=== PATIENT | male | born 1985 | race Caucasian/White ===

== ENCOUNTER 2019-04-29 14:04 | Emergency (ER) | payer SELFPAY ==
[2019-04-29 14:05] VITALS: BP 149/97; PULSE 92; RESP 16; TEMP 36.9; O2SAT 100; BMI 25.7
--- NOTE | 2019-04-29 14:21 | RAD_ITS ---
STUDY: X-RAY - RIGHT FOOT CLINICAL: Male, 33 years old. Pain along the fifth metatarsal following injury. TECHNIQUE: 3 view(s) of the foot. COMPARISON: None. FINDINGS: Normal talus, calcaneus, and tarsal bones. Normal visualized subtalar, talonavicular, calcaneocuboid, tarsal and tarsometatarsal articulations. Nondisplaced transverse fracture of the distal aspect of the fifth metatarsal. Normal metatarsophalangeal joint of the great toe. Normal tibial and fibular sesamoid bones. Normal interphalangeal joint of the great toe. Normal phalanges of the great toe. Normal second through fifth metatarsophalangeal joints. Normal interphalangeal joints and phalanges of the lesser toes. Soft tissue swelling. RAD/Foot min 3 Views IMPRESSION: Nondisplaced transverse fracture along the distal aspect of the fifth metatarsal with overlying soft tissue swelling. Electronically Signed: Jonathan Alaniz, at 14:49 EDT , Service support ,
--- NOTE | 2019-04-29 15:17 | ED.DCSUM_ITS ---
- ER Visit Summary Date of Service: 04/29/19 Chief Complaint: Foot injury History of Present Illness: The patient is a 33 M who states that approximate 7 days ago while in [place] playing basketball he did a jump shot when he came down his foot landed on uneven surface between the concrete on the grass and he sustained an inversion injury. Since that time he said swelling and ecchymosis. He notes painful walking and has been using a cane. Physical Examination: Afebrile vital signs are stable Gen: Well-nourished well-developed Head: Normocephalic atraumatic Eyes: Perrl EOMI ENT: TMs clear no rhinorrhea moist mucous membranes Neck: Supple no lymphadenopathy no JVD nontender CVS: Regular rate rhythm no murmurs normal S1-S2 Respiratory: No distress clear to auscultation bilaterally chest nontender Abdomen: Soft nontender nondistended normal bowel sounds no masses Back: Nontender Extremity: Tender to palpation along the distal fifth metatarsal. Diffuse swelling of the foot and ankle. Ankle appears stable. Skin: Normal color ecchymosis along the dorsal surface of the right foot Neuro: alert orientated ?3 CN II-XII intact normal strength sensation Psych: Normal affect normal mood Test Results: X-rays reveal a nondisplaced transverse fracture at the distal aspect of the fifth metatarsal. Emergency Department Course and Treatment: Case was discussed with podiatry to help ensure follow-up. Patient will be placed in a walking boot. Patient declines crutches. Impression: 1. Right fifth metatarsal fracture This note was generated with [employer] dictation software. It may contain incorrect words, spelling, and punctuation that were not noted in review of the chart prior to signing ED Disposition - Plan for ED Patient: Disposition: Home or Assisted Living Instructions: ED Fx Foot Referrals: Juan Diego Beavers DPM [STAFF PHYSICIAN] - (call to arrange follow up)
--- NOTE | 2019-04-29 15:21 | NURSING ---
PAGED DR MAYER
== END 2019-04-29 15:48 | disposition home or self-care (01) ==
PROVIDERS: Emergency Provider Emergency Medicine
DX: S92.354A Nondisplaced fracture of fifth metatarsal bone, right foot, initial encounter for closed fracture (principal); X50.1XXA Overexertion from prolonged static or awkward postures, initial encounter; Y93.67 Activity, basketball; Y92.9 Unspecified place or not applicable; Y99.9 Unspecified external cause status; Z72.0 Tobacco use
CPT/HCPCS: 73630; 99283

== ENCOUNTER 2021-01-19 19:59 | Emergency (ER) | payer MEDICAID, SELFPAY ==
[2021-01-19 19:59] VITALS: BP 156/105; PULSE 110; RESP 16; TEMP 36.6; O2SAT 96; BMI 25.0
[2021-01-19 20:13] VITALS: BP 156/105; PULSE 110; RESP 16; TEMP 36.6; O2SAT 96
--- NOTE | 2021-01-19 21:25 | ED.DCSUM_ITS ---
History of Present Illness Chief Complaint: Laceration Narrative: Patient is a 35-year-old male who presents with a left foot laceration wound check. He was in [place]. He cut his foot on coral 2 days ago. He was seen at an urgent care in [place] and had his wound cleansed and sutured. He flew back today. Due to swelling he noticed that his wound was beginning to pull apart. He does complain of pain and redness. Past Medical History - Allergies and Home Meds Allergies/Adverse Reactions: Allergies No Known Allergies Allergy (Verified 01/19/21 20:05) Primary Care Physician: Care Physician,No Primary [Primary Care Provider] - Past Medical History: None Smoking Status: Current every day smoker Review of Systems All systems negative except as indicated General: Denies: Fever Eyes: Denies: Visual changes - bilaterally Cardiovascular: Denies: Chest pain Respiratory: Denies: Dyspnea Gastrointestinal: Denies: Abdominal pain, Vomiting, Diarrhea Musculoskeletal: Denies: Myalgias, Arthralgias Skin: Reports: Wounds. Denies: Rash Neurological: Denies: Headache Hematologic: Denies: Easy bruising Allergy: Denies: Uticaria Physical Exam Vital Signs/Narrative: Vital Signs Temp Pulse Resp BP Pulse Ox 01/19/21 20:13 97.8 F 110 H 16 156/105 H 96 01/19/21 19:59 97.8 F 110 H 16 156/105 H 96 Inital Vital Signs reviewed: Yes General: Well nourished Head: Normocephalic Eyes: EOMI ENT: Moist mucous membranes Neck: Supple Cardiovascular: Regular rhythm, Tachycardia Respiratory: No distress Abdomen: Soft Extremities: - - Patient does have a laceration on the bottom of the left foot. There is surrounding erythema. He is very tender. No drainage. There is some superficial dehiscence although the wound is still well approximated Skin: No rash Neurological: Alert Psychological: Normal affect Diagnostic/Tx/Re-eval Laboratory Results 01/19/21 01/19/21 01/19/21 21:40 21:40 21:40 WBC 10.7 RBC 4.81 Hgb 14.7 Hct 43.7 MCV 90.9 MCH 30.6 MCHC 33.6 RDW Std Deviation 42.5 RDW Coeff of Marquez 12.8 Plt Count 291 MPV 8.6 Immature Gran % (Auto) 0.400 Neut % (Auto) 77.6 H Lymph % (Auto) 12.9 L [place] % (Auto) 7.4 Eos % (Auto) 1.2 Baso % (Auto) 0.5 Absolute Neuts (auto) 8.3 H Absolute Lymphs (auto) 1.38 Nucleated RBC % 0 Sodium 138 Potassium 4.0 Chloride 103 Carbon Dioxide 30.0 Anion Gap 5 BUN 11 Creatinine 1.09 Estim Creat Clear Calc 83.85 Est GFR (MDRD) Af Amer 100 Est GFR (MDRD) Non-Af 82 BUN/Creatinine Ratio 10.1 Glucose 88 Lactic Acid 1.0 Calcium 9.5 - Medical Decision Making CBC BMP unremarkable patient patient was given IV Unasyn. I discussed hospital observation. The patient refuses. Patient is on Bactrim only which while this would be a good antibiotic for vibrio may not cover common pathogens as well. I discussed adding on additional antibiotics such as oral doxycycline as this would be my recommendation at this point. Patient states I am going to be honest with you I am not going to fill it. He does not believe that there is an infection he believes the erythema pain and swelling are just related to his feet being down during the flight. I very clearly expressed my concern that he has an infection not adequately being controlled with Bactrim alone. I discussed the risks of worsening of condition which could result in the need for surgical intervention disability sepsis or . He vocalized understanding and signed out AGAINST MEDICAL ADVICE. ED Disposition - Plan for ED Patient: Disposition: Against Medical Advice Diagnosis: Wound infection Instructions: ED Wound Check (Infection) Referrals: Care Physician,No Primary [Primary Care Provider] -
[2021-01-19 21:51] LABS: Absolute Lymphocyte Count 1.38 X10^3/uL (0.83-4.51); Absolute Neutrophil Count 8.3 X10^3/uL (2.0-7.7); Basophil# 0.05 X10^3/uL; Basophil% 0.5 % (0-1); Eosinophil# 0.13 X10^3/uL; Eosinophils% 1.2 % (0-5); Hematocrit 43.7 % (40-54); Hemoglobin 14.7 g/dL (13.0-16.5); Lymphocyte # 1.38 X10^3/ul (4.0); Lymphocyte % 12.9 % (19-41); Mean Corp Hgb Conc 33.6 g/dL (32-36); Mean Corpuscular Hgb 30.6 pg (27.0-32.0); Mean Corpuscular Volume 90.9 fL (80-94); Mean Platelet Vol. 8.6 fl (6.2-12.0); Monocyte# 0.79 X10^3/uL; Monocyte% 7.4 % (0-10); NRBC Flagged by Analyzer 0 % (0-5); Neutrophil # 8.27 X10^3/uL (2.7-7.7); Neutrophil % 77.6 % (47-70); Platelet Count 291 K/mm3 (150-450); RBC Distribution Width CV 12.8 % (11.6-14.6); RBC Distribution Width SD 42.5 fl (35.1-43.9); Red Blood Count 4.81 M/mm3 (4.6-6.2); White Blood Count 10.7 K/mm3 (4.4-11.0)
[2021-01-19 22:12] LABS: Anion Gap 5 (5-15); BUN 11 mg/dL (7-18); BUN/Creat Ratio 10.1 RATIO (10-20); Calcium,Total 9.5 mg/dL (8.5-10.1); Chloride 103 mmol/L (98-107); Creatinine, Serum 1.09 mg/dL (0.70-1.30); EST Glomerular Filtration Rate 82 mL/min (>60); Est Glom Filt Rate - Afr Amer 100 mL/min (>60); Estimated Creatinine Clearance 83.85 ml/min; Glucose 88 mg/dL (74-106); Sodium Level 138 mmol/L (136-145)
== END 2021-01-20 00:06 | disposition home or self-care (01) ==
PROVIDERS: Emergency Provider Emergency Medicine
DX: T81.33XA Disruption of traumatic injury wound repair, initial encounter (principal); L08.9 Local infection of the skin and subcutaneous tissue, unspecified; Z53.29 Procedure and treatment not carried out because of patient's decision for other reasons; F17.200 Nicotine dependence, unspecified, uncomplicated
CPT/HCPCS: 80048; 83605; 85025; 96365; 99282; J7050; A4216; J0295

== ENCOUNTER → 2021-08-09 11:58 | Outpatient (CLI) | payer MEDICAID, SELFPAY ==
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
== END ==
PROVIDERS: PCP Nurse Practitioner Family; Referring Provider Nurse Practitioner Family; Visit Provider Nurse Practitioner Family
DX: R10.31 Right lower quadrant pain (principal); S39.91XA Unspecified injury of abdomen, initial encounter; X58.XXXA Exposure to other specified factors, initial encounter; Y93.9 Activity, unspecified; Y92.9 Unspecified place or not applicable; Y99.9 Unspecified external cause status; Z87.442 Personal history of urinary calculi
CPT/HCPCS: 74177; Q9967

== ENCOUNTER → 2021-09-07 11:14 | Outpatient (CLI) | payer MEDICAID, SELFPAY ==
[2021-09-07 12:13] LABS: Hematocrit 50.1 % (40-54); Hemoglobin 16.2 g/dL (13.0-16.5); Mean Corp Hgb Conc 32.3 g/dL (32-36); Mean Corpuscular Hgb 30.5 pg (27.0-32.0); Mean Corpuscular Volume 94.4 fL (80-94); Mean Platelet Vol. 9.3 fl (6.2-12.0); Platelet Count 349 K/mm3 (150-450); RBC Distribution Width CV 12.5 % (11.6-14.6); RBC Distribution Width SD 43.8 fl (35.1-43.9); Red Blood Count 5.31 M/mm3 (4.6-6.2); White Blood Count 5.5 K/mm3 (4.4-11.0)
[2021-09-07 12:51] LABS: ALB/GLOB Ratio 1.1 RATIO (0.9-2.4); AST(SGOT) 19 U/L (15-37); Alanine Aminotransfer ALT/SGPT 25 U/L (16-61); Alkaline Phosphatase 81 U/L (45-117); Anion Gap 5 (5-15); BUN 14 mg/dL (7-18); BUN/Creat Ratio 14.5 RATIO (10-20); Calcium,Total 9.3 mg/dL (8.5-10.1); Chloride 106 mmol/L (98-107); Cholesterol 165 mg/dL (200); Creatinine, Serum 0.97 mg/dL (0.70-1.30); EST Glomerular Filtration Rate 94 mL/min (>60); Est Glom Filt Rate - Afr Amer 114 mL/min (>60); Globulin 3.6 g/dL (2.2-4.2); Glucose 78 mg/dL (74-106); High Density Lipoprotein 47 mg/dL; Potassium 4.3 mmol/L (3.5-5.1); Protein, Total 7.6 g/dL (6.4-8.2); Sodium Level 140 mmol/L (136-145); Thyroid Stim Hormone (TSH) 0.52 uIU/mL (0.358-3.74); Triglycerides 213 mg/dL; Very Low Density Lipoprotein 43 mg/dL (5-40)
== END ==
PROVIDERS: PCP Nurse Practitioner Family; Referring Provider Nurse Practitioner Family; Visit Provider Nurse Practitioner Family
DX: Z00.00 Encounter for general adult medical examination without abnormal findings (principal)
CPT/HCPCS: 36415; 80053; 80061; 84443; 85027

== ENCOUNTER → 2023-08-29 | Outpatient (CLI) | payer MEDICAID, SELFPAY ==
--- NOTE | 2023-08-29 07:48 | CT_ITS ---
STUDY: CT ABDOMEN AND PELVIS WITH CONTRAST REASON FOR EXAM: Male, 38 years old. LIVER DISEASE RADIATION DOSAGE (If Supplied By Facility): CTDIvol = ( 8.23 ) mGy, DLP = ( 374.86 ) mGycm TECHNIQUE: Transaxial images were obtained from the dome of the diaphragm to the symphysis pubis without oral contrast. IV 100mL Isovue-300 was administered. Sagittal and coronal images were reconstructed. Individualized dose optimization techniques were used for this CT. COMPARISON: None. FINDINGS: The visualized lung bases are unremarkable. The visualized portions of the heart are within normal limits. Mild nonspecific fatty infiltrated liver. There is a hypoattenuated nodule in the lateral segment of left lobe measuring approximately 2.4 x 2 cm which has a solid appearance with subtle peripheral nodular enhancement likely hemangioma. Normal gallbladder and extrahepatic biliary system. Normal spleen. Normal pancreas. Normal bilateral adrenal glands. Tiny nonobstructing calculus in the lower pole of the right kidney. No evidence for renal obstruction or mass in either kidney. Normal visualized stomach. Normal small intestine. Scattered diverticular changes of the colon without evidence for acute diverticulitis. The appendix is visualized and appears normal. Normal abdominal aorta. Normal inferior vena cava. Normal retroperitoneum. Poorly distended thick walled bladder likely of no significance. Normal abdominal wall. Normal osseous structures. CT/Abdomen/Pelvis WITH Contrast IMPRESSION: Nonspecific fatty infiltrated liver with focal solid nodule in the lateral segment of left lobe most likely hemangioma. MRI would be useful for further evaluation Tiny nonobstructing right renal calculus.. Diverticular disease of the colon without evidence for acute diverticulitis Electronically Signed: Pancho Hahn MD at 16:31 EDT ,
== END | disposition home or self-care (01) ==
LOC: CT 07:47
PROVIDERS: PCP Nurse Practitioner Family; Referring Provider Nurse Practitioner Family; Visit Provider Nurse Practitioner Family
DX: K76.9 Liver disease, unspecified (principal)
CPT/HCPCS: 74177; Q9967

== ENCOUNTER 2023-09-17 01:07 | Emergency (ER) | payer MEDICAID, SELFPAY ==
[2023-09-17 01:10] VITALS: BP 175/108; PULSE 80; RESP 20; TEMP 36.8; O2SAT 100; BMI 26.1
--- NOTE | 2023-09-17 01:18 | EDS_ITS ---
HPI History of Present Illness Chief Complaint: Abd Pain Narrative Narrative: Patient presents with 1 to 2 hours of abdominal pain on the right side it is right upper and right middle abdominal pain. No right lower abdominal pain. No fevers or chills no flank pain. He has had this problem multiple times in the past few months had a CT which was unremarkable for acute pathology. No fever or chills. No urinary symptoms. No nausea vomiting or diarrhea [facility] Medical History (Updated 09/17/23 @ 02:[address] Polo Han MD) Encounter for preventative adult health care examination GERD (gastroesophageal reflux disease) History of kidney stones Injury of groin Right inguinal pain Home Medications NK 09/17/23 [History Last Taken Unknown] Allergy/AdvReac Type Severity Reaction Status Date / Time No Known Allergies Allergy Verified 09/17/23 01:08 Family History Brother Asthma Mother Breast cancer Skin cancer Social History Smoking Status: Current every day smoker tobacco type: e-cigarettes alcohol intake: current alcohol intake frequency: a few times a week Alcohol type: beer substance use type: does not use what type of physical activity do you participate in: other details: sports/ jui jitsu ROS ROS ED ROS Narrative Past medical history: Reviewed Medications: Reviewed Social history: Noncontributory Review of systems: All systems negative except as indicated General: No fever Eyes: No visual changes ENT: No upper airway congestion, normal voice Neck: No neck pain Cardiovascular: No chest pain Respiratory: No shortness of breath or cough Gastrointestinal: Abdominal pain as in HPI Genitourinary: No dysuria Musculoskeletal: Denies myalgias no difficulty with ambulation Skin: No rash Neurological: No memory loss, confusion or any focal weakness EXAM Physical Exam Narrative Exam Narrative: Physical exam General: Well nourished, Well developed, No Acute Distress Head: Normocephalic, Atraumatic Eyes: Conjunctiva not pale ENT: Moist mucous membranes Neck: Supple, Nontender, No lymphadenopathy Cardiovascular: Regular rate, Regular rhythm Respiratory: No distress, CTA bilaterally Abdomen: Soft, tenderness palpation in the right upper quadrant and right mid. Valenzuela's is negative. No lower abdominal pain or pain at McBurney's. No left- sided abdominal pain. No CVA tenderness Back: Nontender, Normal Inspection. Negative for: CVA tenderness Extremities: Nontender, No edema Skin: Normal color, No rash Neurological: Alert, Normal Strength, Normal Sensation Psychological: Normal affect Const Vital Signs: 09/17/23 01:10 Temperature 98.3 F Temperature Source Oral Pulse Rate 80 Respiratory Rate 20 H Blood Pressure 175/108 H Blood Pressure Mean 130 Pulse Ox 100 Oxygen Delivery Method Room Air MDM MDM MDM Narrative Medical decision making narrative: Patient did have a greasy dinner after which she developed pain he likely has gallbladder disease he had a CT which did not show gallstones. Regardless he probably needs an ultrasound, I cannot get one at this time a night but I do not believe he needs an emergent 1. He has slight elevation of his lipase but not pancreatitis. He does not have any evidence of choledocholithiasis based on blood work. After analgesics is significantly improved. His pain is now better. I think he needs an ultrasound I will refer him to surgery, he is also to call his PCP. If anything changes she is to return. I educated him on diet. Lab Data Labs: Laboratory Results - last 24 hr 09/17/23 01:20 WBC 7.1 RBC 4.98 Hgb 15.0 Hct 45.5 MCV 91.4 MCH 30.1 MCHC 33.0 RDW Std Deviation 42.0 RDW Coeff of Marquez 12.7 Plt Count 315 MPV 9.4 Immature Gran % (Auto) 0.300 Neut % (Auto) 44.0 L Lymph % (Auto) 41.1 H [place] % (Auto) 9.8 Eos % (Auto) 3.8 Baso % (Auto) 1.0 Absolute Neuts (auto) 3.1 Absolute Lymphs (auto) 2.93 Nucleated RBC % 0 Sodium 140 Potassium 3.6 Chloride 105 Carbon Dioxide 31.0 Anion Gap 4 L BUN 11 Creatinine 0.93 Estim Creat Clear Calc 95.52 Est GFR (MDRD) Af Amer 118 Est GFR (MDRD) Non-Af 98 BUN/Creatinine Ratio 11.8 Glucose 103 Calcium 9.2 Total Bilirubin 0.30 AST 20 ALT 30 Alkaline Phosphatase 70 Total Protein 7.5 Albumin 4.2 Globulin 3.3 Albumin/Globulin Ratio 1.3 Lipase 90 H Discharge Plan Triage Chief Complaint: Abd Pain ED Provider: Polo Han Dx/Rx/DC Orders Clinical Impression: Chronic right upper quadrant pain, Abdominal pain Instructions: Abdominal Pain Prescriptions: No Action NK Primary Care Provider: Jeronimo Zamora NP Referrals: Anil Pastrana MD [Med Staff - Active Staff] - 3-5 Days Jeronimo Zamora NP, [employer] WORK[employer] [Primary Care Provider] - 3-5 Days
[2023-09-17] MEDS: Dicyclomine 20 MG/2 ML Vial IM (01:22)
[2023-09-17 01:47] LABS: ALB/GLOB Ratio 1.3 RATIO (0.9-2.4); AST(SGOT) 20 U/L (15-37); Alanine Aminotransfer ALT/SGPT 30 U/L (16-61); Albumin, Serum 4.2 g/dL (3.2-5.0); Alkaline Phosphatase 70 U/L (45-117); Anion Gap 4 (5-15); BUN 11 mg/dL (7-18); BUN/Creat Ratio 11.8 RATIO (10-20); Calcium,Total 9.2 mg/dL (8.5-10.1); Chloride 105 mmol/L (98-107); Creatinine, Serum 0.93 mg/dL (0.70-1.30); EST Glomerular Filtration Rate 98 mL/min (>60); Est Glom Filt Rate - Afr Amer 118 mL/min (>60); Estimated Creatinine Clearance 95.52 ml/min; Globulin 3.3 g/dL (2.2-4.2); Glucose 103 mg/dL (74-106); Lipase 90 U/L (13-75); Potassium 3.6 mmol/L (3.5-5.1); Protein, Total 7.5 g/dL (6.4-8.2); Sodium Level 140 mmol/L (136-145)
[2023-09-17 01:56] LABS: Absolute Lymphocyte Count 2.93 X10^3/uL (0.83-4.51); Absolute Neutrophil Count 3.1 X10^3/uL (2.0-7.7); Basophil# 0.07 X10^3/uL; Eosinophil# 0.27 X10^3/uL; Eosinophils% 3.8 % (0-5); Hematocrit 45.5 % (40-54); Lymphocyte # 2.93 X10^3/ul (0.83-4.51); Lymphocyte % 41.1 % (19-41); Mean Corpuscular Hgb 30.1 pg (27.0-32.0); Mean Corpuscular Volume 91.4 fL (80-94); Mean Platelet Vol. 9.4 fl (6.2-12.0); Monocyte% 9.8 % (0-10); NRBC Flagged by Analyzer 0 % (0-5); Neutrophil # 3.14 X10^3/uL (2.7-7.7); Platelet Count 315 K/mm3 (150-450); RBC Distribution Width CV 12.7 % (11.6-14.6); Red Blood Count 4.98 M/mm3 (4.6-6.2); White Blood Count 7.1 K/mm3 (4.4-11.0)
[2023-09-17] MEDS: Morphine 4 MG/ML Syringe IV (01:57)
[2023-09-17] MEDS: Ondansetron 4 MG/2 ML Vial IV (01:57)
== END 2023-09-17 03:03 | disposition home or self-care (01) ==
PROVIDERS: Emergency Provider Emergency Medicine; PCP Nurse Practitioner Family; Visit Provider Emergency Medicine
DX: R10.11 Right upper quadrant pain (principal); F17.290 Nicotine dependence, other tobacco product, uncomplicated; G89.29 Other chronic pain; K21.9 Gastro-esophageal reflux disease without esophagitis
CPT/HCPCS: 80053; 83690; 85025; 96372; 96374; 96375; 99283; A4216; J2405

== ENCOUNTER → 2023-09-27 | Outpatient (CLI) | payer MEDICAID, SELFPAY ==
--- NOTE | 2023-09-27 08:26 | US_ITS ---
INDICATION: ABD PAIN EXAMINATION: US Abdomen Complete TECHNIQUE: Galarza-scale and color Doppler imaging was performed of the abdomen. COMPARISON: None. Findings: The liver is diffusely homogenous with overall slightly increased echogenicity. There is no evidence of contour nodularity. There is a hyperechoic 2.4 cm mass in the left hepatic lobe.. The main portal vein is normal in size and patent demonstrating hepatopetal flow. The gallbladder is remarkable for mobile, layering stones, however is without evidence of wall thickening or pericholecystic fluid. Sonographic Valenzuela''s tenderness is not appreciated. There is no evidence of intrahepatic biliary ductal dilatation. The CBD is nondilated measuring 3 mm at the level of the aiden hepatis. The visualized portions of the pancreas are unremarkable without evidence of focal or diffuse enlargement. Specifically, the tail is obscured by overlying bowel gas. The spleen is normal in size. Right and left kidneys measure 10.9 cm and 10.8 cm in length respectively. The kidneys are normal in echogenicity. No focal renal lesion is identified. There is no evidence of hydronephrosis bilaterally. There is a nonobstructing 3 mm stone in the right lower pole. The abdominal aorta is normal in caliber where seen. The intrahepatic inferior vena cava is patent. There is no free intraperitoneal fluid identified. US/Abdomen Complete IMPRESSION: Slightly hyperechoic liver without evidence of contour nodularity. Findings are nonspecific and may be consistent with sequelae of fatty infiltration or other forms of diffuse liver disease. 2.4 cm hyperechoic mass in the left hepatic lobe is indeterminate. Recommend multiphase CT or MR abdomen with and without contrast for further evaluation. Cholelithiasis without evidence of acute cholecystitis. Nonobstructive nephrolithiasis on the right. Electronically Signed: Keshawn Quinn MD at 21:41 EST ,
== END | disposition home or self-care (01) ==
LOC: US 08:25
PROVIDERS: PCP Nurse Practitioner Family; Referring Provider Nurse Practitioner Family; Visit Provider Nurse Practitioner Family
DX: R10.84 Generalized abdominal pain (principal)
CPT/HCPCS: 76700

== ENCOUNTER → 2023-10-05 | Outpatient (CLI) | payer MEDICAID, SELFPAY ==
--- NOTE | 2023-10-05 10:25 | MRI_ITS ---
EXAM: MR ABDOMEN WITHOUT AND WITH INTRAVENOUS CONTRAST CLINICAL INDICATION: LIVER DISEASE TECHNIQUE: Multiplanar and multisequence MR images of the abdomen without and with intravenous contrast. CONTRAST: IV Yes YES COMPARISON: No relevant prior studies available. FINDINGS: LOWER THORAX: Small sliding hiatal hernia. No pleural effusion. LIVER: 3.6 cm lesion within hepatic segment 3 with signal characteristics and enhancement pattern most suggestive of hemangioma. Liver is otherwise unremarkable in appearance. GALLBLADDER AND BILE DUCTS: 3. Small stones are noted within the gallbladder largest one measuring 12 mm in diameter. No gallbladder distention or wall edema. PANCREAS: Normal. No focal cystic or solid mass. SPLEEN: Normal. Normal size without focal cystic or solid mass. ADRENALS: Normal. No nodules. KIDNEYS AND URETERS: Normal. Normal renal size and position. No hydronephrosis. INTRAPERITONEAL SPACE: Normal. No ascites or other fluid collection. No free air. VASCULATURE: Normal. Abdominal aorta is non-dilated. LYMPH NODES: No enlarged lymph nodes. MRI/MRI Abd WITH and W/O Contrast IMPRESSION: 1. 3.6 cm hemangioma within hepatic segment 3. 2. Cholelithiasis. 3. Small sliding-type hiatal hernia. Electronically Signed: Joe Montemayor MD at 12:21 EST ,
== END | disposition home or self-care (01) ==
LOC: MRI 10:21
PROVIDERS: PCP Nurse Practitioner Family; Referring Provider Nurse Practitioner Family; Visit Provider Nurse Practitioner Family
DX: K76.9 Liver disease, unspecified (principal)
CPT/HCPCS: 74183; A9575

== ENCOUNTER 2023-10-23 03:02 | Emergency (ER) | payer MEDICAID, SELFPAY ==
[2023-10-23 03:03] VITALS: BP 163/113; PULSE 77; RESP 18; TEMP 35.8; O2SAT 100; BMI 25.9
--- NOTE | 2023-10-23 03:22 | EDS_ITS ---
HPI HPI - GI History of Present Illness Chief Complaint: Abd Pain Informant: patient Narrative Narrative: Worsening right upper quadrant pain radiating to his back awaken him at 2:10 AM. On and off intermittent symptoms for last couple months would come randomly. Denies nausea or vomiting or diarrhea. Denies fever or chills. He has known cholelithiasis, states followed up with surgery yesterday as an outpatient. Recommended cholecystectomy, however he states he tried delaying the November due to personal issues with moving. He is on PAP acid. He tried taking a Tums with no relief. He ate a famous bowl at [facility] with gravy at 7 PM. Denies any allergies. He states with the pain going to his back similar to his gallstone pains. Prior similar symptoms: Yes PFSH COUNTS INCLUDE 234 BEDS AT THE [facility] Medical History Encounter for preventative adult health care examination GERD (gastroesophageal reflux disease) History of kidney stones Injury of groin Right inguinal pain Home Medications famotidine 10 mg tablet 10 mg PO DAILY 10/22/23 [History Last Taken Unknown] Allergy/AdvReac Type Severity Reaction Status Date / Time No Known Allergies Allergy Verified 10/23/23 03:06 Family History Brother Asthma Mother Breast cancer Skin cancer Social History Smoking Status: Current every day smoker tobacco type: e-cigarettes alcohol intake: current alcohol intake frequency: a few times a week Alcohol type: beer substance use type: does not use what type of physical activity do you participate in: other details: sports/ jui jimadhavu ROS ROS ED Constitutional Constitutional ED: Denies chills, fever(s) or sweats Eyes Eyes: Denies change in vision ENT ENT ED: Denies dysphagia or sore throat Cardiovascular Cardiovascular: Denies chest pain, leg edema, palpitations or racing heartbeat Respiratory/Chest Respiratory/Chest: Denies cough, dyspnea or dyspnea on exertion Gastrointestinal Gastrointestinal: Reports abdominal pain; Denies diarrhea, nausea or vomiting Genitourinary Genitourinary ED: Denies dysuria, hematuria or urinary frequency Musculoskeletal Musculoskeletal: Denies back pain, extremity pain or neck pain Integumentary Denies rash or wounds Neurologic Neurologic: Denies headache(s), paresthesias or weakness EXAM Physical Exam Const Vital Signs: 10/23/23 03:03 Temperature 96.5 F L Temperature Source Temporal Pulse Rate 77 Respiratory Rate 18 Blood Pressure 163/113 H Blood Pressure Mean 129 Pulse Ox 100 Oxygen Delivery Method Room Air Positive well nourished and well developed General Appearance ED: well developed and NAD HEENT Reports moist mucous membranes normocephalic and atraumatic Eyes PERRL, EOMs intact bilaterally and conjunctivae normal General Eye ED: Yes normal appearance of both eyes Neck no lymphadenopathy and supple General: Negative for tenderness Chest Wall Chest: Negative for tenderness Resp normal respiratory effort and normal air movement Effort and Inspection: symmetric chest movement; Negative for respiratory distress Cardio regular rate, regular rhythm and no murmurs Peripheral Pulses: pulses 2+ throughout GI normal to inspection, nondistended, normoactive bowel sounds GI Narrative: Right upper quadrant tenderness, no guarding or rebound. Palpation: Negative for guarding or rebound tenderness present Back/Spine no CVA tenderness and no thoracic nor lumbar tenderness Extremity normal to inspection General Extremety ED: Negative for edema or tenderness General Extremity: Negative for edema Neuro oriented x3 and no sensory deficits noted Sensorium / Orientation: awake and alert Skin no rashes or lesions noted and no wounds MDM MDM MDM Narrative Medical decision making narrative: Interventions / MDM: Differential diagnosis: Gallstones, biliary colic Diagnosis considered but do not suspect: N/A My EKG interpretation: N/A Imaging independently reviewed and interpreted by myself: N/A External documents reviewed: Outpatient consult from surgery reviewed yesterday with recommended cholecystectomy. Test considered but not ordered:N/A ED course: Patient known gallstones with similar symptoms. He ate famous playnik with gravy. Will check abdominal labs, morphine Zofran fluids started. 0410: Pain only mild improvement. He states more accurate waiting is his pain in his low mid back. This still pain in the right upper quadrant however there is no guarding or rebound. His was white normal normal lipase 83 slightly elevated however lower than his previous. Normal liver enzymes. Will redose his pain medicines along with IV Pepcid to try to help with symptoms. 0510: Symptoms much more tolerable. Soft abdomen on exam. I did discuss with his surgeon Dr. Pastrana, symptoms controlled at this time. He reiterated avoiding greasy and dairy foods. He recommended patient calling his office for outpatient scheduling for the procedure. This was discussed with the patient. He understands this. He is tolerating oral fluids prior to discharge. Return precautions discussed. All questions were answered. Re-evaluation: stable Disposition discussed with patient/family/significant other: Patient Case discussed with consulting clinician: General surgery This note was generated with Caremerge dictation software. It may contain incorrect words, spelling, and punctuation that were not noted in checking the note before signing. Lab Data Attestation: I reviewed the patient's lab results. Labs: Laboratory Results - last 24 hr 10/23/23 03:35 WBC 7.7 RBC 4.86 Hgb 14.8 Hct 44.5 MCV 91.6 MCH 30.5 MCHC 33.3 RDW Std Deviation 43.6 RDW Coeff of Marquez 12.9 Plt Count 304 MPV 8.7 Immature Gran % (Auto) 0.100 Neut % (Auto) 46.6 L Lymph % (Auto) 37.8 [place]mer % (Auto) 9.5 Eos % (Auto) 4.8 Baso % (Auto) 1.2 H Absolute Neuts (auto) 3.6 Absolute Lymphs (auto) 2.89 Nucleated RBC % 0 Sodium 140 Potassium 4.3 Chloride 106 Carbon Dioxide 29.0 Anion Gap 5 BUN 11 Creatinine 0.99 Estim Creat Clear Calc 89.73 Est GFR (MDRD) Af Amer 110 Est GFR (MDRD) Non-Af 91 BUN/Creatinine Ratio 11.2 Glucose 112 H Calcium 8.8 Total Bilirubin 0.60 Direct Bilirubin 0.18 AST 16 ALT 24 Alkaline Phosphatase 67 Total Protein 7.1 Albumin 3.9 Globulin 3.2 Lipase 83 H Discharge Plan Triage Chief Complaint: Abd Pain ED Provider: Eze Holland Dx/Rx/DC Orders Clinical Impression: Gall stones, Abdominal pain, Biliary colic Instructions: ED Gallstones with Biliary Colic Prescriptions: No Action famotidine 10 mg tablet 10 mg PO DAILY Primary Care Provider: Jeronimo Zamora Referrals: Anil Pastrana MD [Med Staff - Active Staff] - 3-5 Days Jeronimo Zamora, AQUATIC FACILITY MANAGER-C [Primary Care Provider] - Activity Restrictions/Additional Instructions: Avoid greasy and fatty foods. Avoid dairy products. Discussed with Dr. Pastrana in the emergency department. Call office discussed earlier schedule of your cholecystectomy. Return to ED if symptoms return and worsens uncontrolled at home. Disposition Disposition: Home, Self Care
[2023-10-23] MEDS: Ondansetron 4 MG/2 ML Vial IV (03:32)
[2023-10-23] MEDS: 0.9% Normal Saline (1000mL) 1,000 ML 125 ML IV (03:32)
[2023-10-23] MEDS: Morphine 4 MG/ML Syringe IV ×2 (03:32→04:26)
[2023-10-23 03:41] LABS: Absolute Lymphocyte Count 2.89 X10^3/uL (0.83-4.51); Absolute Neutrophil Count 3.6 X10^3/uL (2.0-7.7); Basophil# 0.09 X10^3/uL; Basophil% 1.2 % (0-1); Eosinophil# 0.37 X10^3/uL; Eosinophils% 4.8 % (0-5); Hematocrit 44.5 % (40-54); Hemoglobin 14.8 g/dL (13.0-16.5); Lymphocyte # 2.89 X10^3/ul (0.83-4.51); Lymphocyte % 37.8 % (19-41); Mean Corp Hgb Conc 33.3 g/dL (32-36); Mean Corpuscular Hgb 30.5 pg (27.0-32.0); Mean Corpuscular Volume 91.6 fL (80-94); Mean Platelet Vol. 8.7 fl (6.2-12.0); Monocyte# 0.73 X10^3/uL; Monocyte% 9.5 % (0-10); NRBC Flagged by Analyzer 0 % (0-5); Neutrophil # 3.56 X10^3/uL (2.7-7.7); Neutrophil % 46.6 % (47-70); Platelet Count 304 K/mm3 (150-450); RBC Distribution Width CV 12.9 % (11.6-14.6); RBC Distribution Width SD 43.6 fl (35.1-43.9); Red Blood Count 4.86 M/mm3 (4.6-6.2); White Blood Count 7.7 K/mm3 (4.4-11.0)
[2023-10-23 03:55] LABS: AST(SGOT) 16 U/L (15-37); Alanine Aminotransfer ALT/SGPT 24 U/L (16-61); Albumin, Serum 3.9 g/dL (3.2-5.0); Alkaline Phosphatase 67 U/L (45-117); Anion Gap 5 (5-15); BUN 11 mg/dL (7-18); BUN/Creat Ratio 11.2 RATIO (10-20); Bilirubin, Direct 0.18 mg/dL (0.00-0.30); Calcium,Total 8.8 mg/dL (8.5-10.1); Chloride 106 mmol/L (98-107); Creatinine, Serum 0.99 mg/dL (0.70-1.30); EST Glomerular Filtration Rate 91 mL/min (>60); Est Glom Filt Rate - Afr Amer 110 mL/min (>60); Estimated Creatinine Clearance 89.73 ml/min; Globulin 3.2 g/dL (2.2-4.2); Glucose 112 mg/dL (74-106); Lipase 83 U/L (13-75); Potassium 4.3 mmol/L (3.5-5.1); Protein, Total 7.1 g/dL (6.4-8.2); Sodium Level 140 mmol/L (136-145)
[2023-10-23] MEDS: Famotidine 200 MG/20 ML MDV 20 MG in 0.9% Normal Saline (Pres. free 8 ML 300 MG IV (04:47)
[2023-10-23 05:19] VITALS: BP 138/79; PULSE 79; RESP 18; O2SAT 99
== END 2023-10-23 05:23 | disposition home or self-care (01) ==
PROVIDERS: Emergency Provider Emergency Medicine; PCP Nurse Practitioner Family; Visit Provider Emergency Medicine
DX: K80.70 Calculus of gallbladder and bile duct without cholecystitis without obstruction (principal); M54.9 Dorsalgia, unspecified; F17.290 Nicotine dependence, other tobacco product, uncomplicated
CPT/HCPCS: 80048; 80076; 83690; 85025; 96361; 96374; 96375; 96376; 99283; J7030; A4216; J2405; J3490

== ENCOUNTER 2023-12-10 03:54 | Emergency (ER) | payer MEDICAID, SELFPAY ==
[2023-12-10 03:54] VITALS: BP 145/92; PULSE 78; RESP 16; TEMP 36.4; O2SAT 99; BMI 26.4
--- NOTE | 2023-12-10 04:04 | ED.VIS.GI ---
HPI HPI - GI History of Present Illness Chief Complaint: Abd Pain Informant: patient Narrative Narrative: Patient presents with my gallbladder again. This patient has been having intermittent right upper quadrant pain for several months. He has been seen and evaluated. He is known to have gallstones. He was going to have his gallbladder out about 4 days ago or 5 days ago. But his surgeon was ill and therefore it was delayed. He is now scheduled for 19 December. He states he ate late yesterday evening. He ate about 930 which was about 6 or 7 hours ago. He had garlic bread and cheese ravioli. He has been having pain for about 3 hours. He states he just cannot get comfortable. He is not really nauseated with it. No fevers or chills. The pain is in right upper quadrant and radiates toward his back. That is typically what it has done. PFSH PFS Medical History Alcohol use Diverticulosis Encounter for preventative adult health care examination GERD (gastroesophageal reflux disease) History of kidney stones Injury of groin Restless legs Right inguinal pain Wears glasses Home Medications famotidine 10 mg tablet 10 mg PO DAILY PRN GERD 10/22/23 [History Last Taken Unknown] hydrocodone-acetaminophen 5-325mg 5mg-325mg 1 tab PO Q6H PRN PRN Pain 3 days #10 TABLETS 12/10/23 [Rx Last Taken Unknown] Allergy/AdvReac Type Severity Reaction Status Date / Time No Known Allergies Allergy Verified 12/10/23 04:04 Family History Brother Asthma Mother Breast cancer Skin cancer Social History Smoking Status: Current every day smoker tobacco type: e-cigarettes alcohol intake: current alcohol intake frequency: a few times a week Alcohol type: beer substance use type: does not use what type of physical activity do you participate in: other details: sports/ jui jitsu ROS ROS ED ROS Narrative A complete review of systems was performed and is negative except as documented in the history of present illness. Some specific details below. Constitutional: No recent fevers or chills. EYE: No color change. ENT: No difficulty swallowing. No swelling. No pain. Not having GERD but he is on meds for that. CV: No chest pain or palpitations. Respiratory: No dyspnea. No hemoptysis. No difficulty taking breaths. GI: Please see history of present illness. : No frequency dysuria or hematuria. Musculoskeletal: No recent trauma. No pains. Skin: No rash. Nondiaphoretic. Neuro: No weakness or numbness. Endocrine: No polyuria or polydipsia. EXAM Physical Exam Narrative Exam Narrative: CONSTITUTIONAL: Patient is nontoxic in appearance. The patient looks comfortable. HEENT: No notable trauma. Mucous membranes moist. EYES: No conjunctival injection. No proptosis. CARDIOVASCULAR: Regular rate. Regular rhythm. No notable murmur. No JVD. RESPIRATORY: No respiratory distress. Breathing is unlabored. No wheezes. No rhonchi. No rales. No pain with a deep breath. GASTROINTESTINAL: Not distended. Bowel sounds are normal. Mild tenderness in the right upper quadrant. No rebound or guarding. Rest of abdomen is actually benign. There are tattoos but no rash. GENITOURINARY: No tenderness over the bladder. No CVA tenderness. MUSCULOSKELETAL: Atraumatic. No peripheral edema. No cord. No tenderness along the deep venous system. No asymmetry. NEUROLOGICAL: Patient is alert and appropriate. No focal deficit noted. SKIN: No noted rashes. No diaphoresis. PSYCHIATRIC: Patient is calm. Mood is appropriate. Const Vital Signs: 12/10/23 03:54 Temperature 97.5 F L Temperature Source Temporal Pulse Rate 78 Respiratory Rate 16 Blood Pressure 145/92 H Blood Pressure Mean 109 Pulse Ox 99 MDM MDM MDM Narrative Medical decision making narrative: Patient's CBC is normal. Patient's electrolytes are overall normal. Patient's liver function test are normal. Patient's lipase is mildly high but it is about the same level that it has been recently. Patient was rechecked. He states he feels like it is finally broken and the pain is gone away. He is not nauseated. His abdomen is not tender now. I think it is appropriate we get him home. I did do online prescribing report and he has no narcotics. I will write for just a small number so he has an option to take at home pending his surgery. We again discussed appropriateness of diet. Lab Data Attestation: I reviewed the patient's lab results. Labs: Laboratory Results - last 24 hr 12/10/23 04:00 WBC 7.3 RBC 4.77 Hgb 14.4 Hct 43.4 MCV 91.0 MCH 30.2 MCHC 33.2 RDW Std Deviation 42.1 RDW Coeff of Marquez 12.6 Plt Count 308 MPV 9.2 Immature Gran % (Auto) 0.300 Neut % (Auto) 44.7 L Lymph % (Auto) 40.5 [place] % (Auto) 10.4 H Eos % (Auto) 3.1 Baso % (Auto) 1.0 Absolute Neuts (auto) 3.3 Absolute Lymphs (auto) 2.96 Nucleated RBC % 0 Sodium 140 Potassium 4.3 Chloride 107 Carbon Dioxide 30.0 Anion Gap 3 L BUN 13 Creatinine 0.90 Estim Creat Clear Calc 98.70 Est GFR (MDRD) Af Amer 123 Est GFR (MDRD) Non-Af 101 BUN/Creatinine Ratio 14.5 Glucose 93 Calcium 9.2 Total Bilirubin 0.30 AST 26 ALT 28 Alkaline Phosphatase 72 Total Protein 7.2 Albumin 3.9 Globulin 3.3 Albumin/Globulin Ratio 1.2 Lipase 91 H Discharge Plan Triage Chief Complaint: Abd Pain ED Provider: Burt Celaya Dx/Rx/DC Orders Clinical Impression: History of gallstones, Biliary colic Instructions: ED Gallstones with Biliary Colic Prescriptions: New hydrocodone-acetaminophen [hydrocodone-acetaminophen] 5-325 mg tablet 1 tab PO Q6H PRN PRN (Reason: Pain) 3 Days Qty: 10 0RF No Action famotidine 10 mg tablet 10 mg PO DAILY PRN (Reason: GERD) Primary Care Provider: Jeronimo Zamora Referrals: Anil Pastrana MD [Med Staff - Active Staff] - Keep Paulina appointment Jeronimo Zamora, BILINGUAL TEACHER ASSISTANT-C [Primary Care Provider] - Disposition Disposition: Home, Self Care
[2023-12-10 04:09] LABS: Absolute Lymphocyte Count 2.96 X10^3/uL (0.83-4.51); Absolute Neutrophil Count 3.3 X10^3/uL (2.0-7.7); Basophil# 0.07 X10^3/uL; Eosinophil# 0.23 X10^3/uL; Eosinophils% 3.1 % (0-5); Hematocrit 43.4 % (40-54); Hemoglobin 14.4 g/dL (13.0-16.5); Lymphocyte # 2.96 X10^3/ul (0.83-4.51); Lymphocyte % 40.5 % (19-41); Mean Corp Hgb Conc 33.2 g/dL (32-36); Mean Corpuscular Hgb 30.2 pg (27.0-32.0); Mean Platelet Vol. 9.2 fl (6.2-12.0); Monocyte# 0.76 X10^3/uL; Monocyte% 10.4 % (0-10); NRBC Flagged by Analyzer 0 % (0-5); Neutrophil # 3.27 X10^3/uL (2.7-7.7); Neutrophil % 44.7 % (47-70); Platelet Count 308 K/mm3 (150-450); RBC Distribution Width CV 12.6 % (11.6-14.6); RBC Distribution Width SD 42.1 fl (35.1-43.9); Red Blood Count 4.77 M/mm3 (4.6-6.2); White Blood Count 7.3 K/mm3 (4.4-11.0)
[2023-12-10] MEDS: Morphine 4 MG/ML Syringe IV ×2 (04:11→04:49)
[2023-12-10] MEDS: 0.9% Normal Saline (1000mL) 1,000 ML 1000 ML IV (04:11)
[2023-12-10] MEDS: Ondansetron 4 MG/2 ML Vial IV (04:11)
[2023-12-10] MEDS: Ketorolac 15 MG/ML Vial IV (04:11)
[2023-12-10 04:30] LABS: ALB/GLOB Ratio 1.2 RATIO (0.9-2.4); AST(SGOT) 26 U/L (15-37); Alanine Aminotransfer ALT/SGPT 28 U/L (16-61); Albumin, Serum 3.9 g/dL (3.2-5.0); Alkaline Phosphatase 72 U/L (45-117); Anion Gap 3 (5-15); BUN 13 mg/dL (7-18); BUN/Creat Ratio 14.5 RATIO (10-20); Calcium,Total 9.2 mg/dL (8.5-10.1); Chloride 107 mmol/L (98-107); EST Glomerular Filtration Rate 101 mL/min (>60); Est Glom Filt Rate - Afr Amer 123 mL/min (>60); Globulin 3.3 g/dL (2.2-4.2); Glucose 93 mg/dL (74-106); Lipase 91 U/L (13-75); Potassium 4.3 mmol/L (3.5-5.1); Protein, Total 7.2 g/dL (6.4-8.2); Sodium Level 140 mmol/L (136-145)
[2023-12-10 05:39] VITALS: BP 143/81; PULSE 74; RESP 16; O2SAT 99
== END 2023-12-10 05:40 | disposition home or self-care (01) ==
PROVIDERS: Emergency Provider Emergency Medicine; PCP Nurse Practitioner Family; Visit Provider Emergency Medicine
DX: F17.290 Nicotine dependence, other tobacco product, uncomplicated (principal); K80.20 Calculus of gallbladder without cholecystitis without obstruction
CPT/HCPCS: 80053; 83690; 85025; 96361; 96374; 96375; 96376; 99283; J7030; A4216; J2405

== ENCOUNTER 2023-12-19 08:39 | Day surgery (SDC) | payer MEDICAID, SELFPAY ==
[2023-12-19] VITALS (10 sets, daily range): BP systolic 134–153; BP diastolic 88–102; PULSE 71–103; RESP 16–18; TEMP 35.8–36.4; O2SAT 98–100; BMI 24.5
--- OUTSIDE RECORDS SUMMARY | 2023-12-19 09:06 | XMS RPT_ITS | CCD ---
Author Name Unknown Address [address] [place] [address] Organization [facility] Care Team Providers Care Medical Scientific Liaison Name Role Phone Linda Duarte Primary Care Provider Unavail able Problems Problem Classification Problem Date Documented Da te Episodic/Chronic Immunizations and screening for infectious disease (1 source) Exposure to sexually transmissible disorder; Translations: [Contact with and (suspected) exposure to infections with a predominantly sexual mode of transmission] 08-30-2023 Episodic Results Test Name Value Interpretation Reference Range Facil ity Vital Signs Date Time Vital Sign Value Performing Clinician Facterry litalfredo 08-30-2023 11:14-0400 Body temperature 97.39 [degF] Jamee Babcock APRN.NUCLEAR PHYSICS TEACHER Work Phone: [facility] 08-30-2023 11:14-0400 Body weight 68.22 kg Jamee Babcock APRN.NUCLEAR PHYSICS TEACHER Work Phone: [facility] 08-30-2023 11:14-0400 Diastolic blood pressure 93 mm[Hg] Jamee Babcock APRN.NUCLEAR PHYSICS TEACHER Work Phone: [facility] 08-30-2023 11:14-0400 Heart rate 92 /min Jamee Babcock APRN.NUCLEAR PHYSICS TEACHER Work Phone: [facility] 08-30-2023 11:14-0400 Respiratory rate 18 /min Jamee Babcock APRN.NUCLEAR PHYSICS TEACHER Work Phone: [facility] 08-30-2023 11:14-0400 SaO2% (BldA) [Mass fraction] 98 % Jamee Babcock APRN.NUCLEAR PHYSICS TEACHER Work Phone: [facility] 08-30-2023 11:14-0400 Systolic blood pressure 147 mm[Hg] Jamee Babcock APRN.NUCLEAR PHYSICS TEACHER Work Phone: [facility] Encounters Encounter Date Encounter Type Care Provider Facility Start: 08-30-2023 Telephone encounter Jamee Babcock APRN.CNP Work Phone: [facility] Procedures Date Procedure Procedure Detail Performing Clinician Start: 08-30-2023 Iadna chlamydia trachomatis amplified probe tq Jamee Babcock APRN.CNP Work Phone: Plan of Treatment Date Care Activity Detail Author Start: 07-20-2023 Influenza vaccination Influenza Vacc ine (#1) [facility] Start: 11-19-2022 Depression Assessment Depression Ass essment [facility] Start: 2022 Lipid 1996 panel - S ying or Plasma Lipid Screening [facility] Start: 2006 Urine microalbumin profile DTaP,Tdap,Td Vaccine (1 - Tdap) [facility] Start: 2005 Hepatitis C Screening Hepatitis C Sc reening [facility] Start: 2005 HIV Screening HIV Screening [facility] Start: 1993 Pneumococcal vaccination Pneum ococcal Vaccine (1 - PCV) [facility] Start: 1987 Covid-19 Vaccine (#1) Covid-19 Vacci ne (#1) [facility] Start: 1987 Hepatitis B Vaccine (1 of 3 - 3-dose series) Hepatitis B Vaccine (1 of 3 - 3-dose series) [facility] Payers Date Payer Category Payer Medicaid [id number] Social History Date Type Detail Facility [facility]: [facility] Start: 08-30-2023 Tobacco use and exposure Smoke less tobacco non-user [facility] Start: 08-30-2023 History of Social function [facility] Start: 08-30-2023 Tobacco use panel [facility] Start: 1987 Sex Assigned At Not on file [facility] Note 08-30-2023 Telephone Encounter - Che Maurer LPN - 08/30/2023 7:07 PM EDTTelephone Encounter - Jamee Babcock APRN.CNP - 08/30/2023 7:03 PM EDT Note Date & Type Note Facility 08-30-2023 Miscellaneous Notes Formattin g of this note might be different from the original. Patient given results and verbalized understanding of instructions given. Che Maurer LPN Patient was negative for trichomonas, gonorrhea, chlamydia, documented in this encounter [facility] Progress note 08-30-2023 Note Date & Type Note Facility 08-30-2023 Note HNO ID: [id number] Author: Jamee Babcock APRN.MANA Service: ? Author Type: Nurse Practitioner Type: Progress Notes Filed: 08/30/2023 11:31 AM Note Text: Subjective Patient came in and wanted STD tested. Patient says he had an unprotected oral encounter with a stranger on Sunday afternoon. Patient says it just feels different but no real symptoms at this time. Did educate patient that it usually takes 7 to 21 days to contract anything. Patient still wants tested. The history is provided by the patient. No multi disciplined language analyst was used. Review of Systems Constitutional: Negative. Skin: Negative. Objective Physical Exam Constitutional: Appearance: Normal appearance. Pulmonary: Effort: Pulmonary effort is normal. Neurological: Mental Status: He is alert. No past medical history on file. No past surgical history on file. ALLERGIES Patient has no known allergies. MEDICATIONS No prescriptions on file. No family history on file. Social History Tobacco Use Smoking status: Every Day Smokeless tobacco: Never ASSESSMENT/PLAN: 1. STD exposure - ICD9: V01.6, ICD10: Z20.2 - TRICHOMONAS VAGINALIS NAAT - GONORRHEA/CHLAMYDIA NAAT Patient was educated to be rechecked if signs and symptoms do develop. Patient was okay with this care plan. Terry Babcock APRN.CNP [facility] History of Present illness Narrative 08-30-2023 Jamee Babcock APRN.MANA - 08/30/2023 11:25 AM EDT Note Date & Type Note Facility 08-30-2023 History of Presen t illness Narrative Subjective Patient came in and wanted STD tested. Patient says he had an unprotected oral encounter with a stranger on Sunday afternoon. Patient says it just feels different but no real symptoms at this time. Did educate patient that it usually takes 7 to 21 days to contract anything. Patient still wants tested. The history is provided by the patient. No multi disciplined language analyst was used. Review of Systems Constitutional: Negative. Skin: Negative. Objective Physical Exam Constitutional: Appearance: Normal appearance. Pulmonary: Effort: Pulmonary effort is normal. Neurological: Mental Status: He is alert. No past medical history on file. No past surgical history on file. ALLERGIES Patient has no known allergies. MEDICATIONS No prescriptions on file. No family history on file. Social History Tobacco Use Smoking status: Every Day Smokeless tobacco: Never ASSESSMENT/PLAN: 1. STD exposure - ICD9: V01.6, ICD10: Z20.2 - TRICHOMONAS VAGINALIS NAAT - GONORRHEA/CHLAMYDIA NAAT Patient was educated to be rechecked if signs and symptoms do develop. Patient was okay with this care plan. I Jamee Babcock APRN.MANA documented in this encounter [facility] Evaluation note Note Date & Type Note Facility documented in this encounter [facility] Summary Purpose Family History No Family History Records Found Advance Directives No Advanced Directives Records Found Additional Source Comments Source Comments (unrecognize d section and content) In the event this informatio n is protected by the Federal Confidentiality of Alcohol and Drug Abuse Patient Records regulations: The Federal rules restrict any use of the information to criminally investigate or prosecute any alcohol or drug abuse patient.[facility] the event this information is protected by the Federal Confidentiality of Alcohol and Drug Abuse Patient Records regulations: The Federal rules restrict any use of the information to criminally investigate or prosecute any alcohol or drug abuse patient.[facility] Reason for Visit (unrecogniz ed section and content) Reason Comments Results Care Teams (unrecognized sec tion and content) Medical Scientific Liaison Relationship Specialty Start Date End Date Linda Duarte PCP - General 03/08/05 (unrecognized sect ion and content) No Status Records Found INFORMATION SOURCE (unrecogn ized section and content) FOR RECORDS PERTAINING TO PATIENTS WHO ARE OR HAVE BEEN ENROLLED IN A CHEMICAL DEPENDENCY/SUBSTANCEABUSE PROGRAM, SOME INFORMATION MAY BE OMITTED. This clinical summary was aggregated from multiple sources. Caution should be exercised in using it in the provision of clinical care. This summary normalizes information from multiple sources, and as a consequence, information in this document may materially change the coding, format and clinical context of patient data. In addition, data may be omitted in some cases. CLINICAL DECISIONS SHOULD BE BASED ON THE PRIMARY CLINICAL RECORDS. [employer] provides no warranty or guarantee of the accuracy or completeness of information in this document.
[2023-12-19] MEDS: Lactated Ringers 1,000 ML 15 ML IV (09:07)
--- NOTE | 2023-12-19 09:07 | PCM.HP.BLA ---
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 Is patient in pain?: No Allergies No Known Allergies Allergy (Verified 10/22/23 14:31) Medications famotidine 10 mg tablet 10 mg PO DAILY 10/22/23 [History] [facility] Medical History (Updated 10/22/23 @ 14:29 by Mimi Huerta LPN) Encounter for preventative adult health care examination GERD (gastroesophageal reflux disease) History of kidney stones Injury of groin Right inguinal pain Family History Brother AsthmaMother Breast cancer Skin cancer Social History Smoking Status: Current every day smoker tobacco type: e-cigarettes alcohol intake: current alcohol intake frequency: a few times a week Alcohol type: beer substance use type: does not use what type of physical activity do you participate in: other details: sports/ jui jitsu HPI HPI HPI: Patient is a 38-year-old male with pain that is waking him from sleep. He says it happens occasionally and there is no correspondence with what he eats or what time he eats. It wakes him in the middle the night he has pain that radiates to the middle of his back and in the right upper quadrant and right flank. Patient denies any fevers or chills or nausea or vomiting this time. ROS Musc Musculoskeletal: Yes back problems Psych Psychiatric: Yes depression and anxiety Gastro Gastrointestinal: Yes abdominal pain, Yes acid reflux and Yes gallbladder problem Exam Const General: cooperative Orientation: alert and oriented x3 HENMT Head: normal to inspection Neck Neck: normal visual inspection and full ROM Chest Chest palpation & inspection: normal inspection of the chest Resp Effort & Inspection: normal respiratory effort Auscultation: clear to auscultation bilaterally Cardio Rate: regular rate Rhythm: regular rhythm GI Inspection: non-distended Palpation: soft and nontender Skin General: no rashes or lesions noted Neuro General: patient alert and patient oriented x3 Extrem General: full ROM Psych Appearance: grossly normal Mental Status: mental status grossly normal Assessment and Plan Assessment and Plan (1) Gall stones: Status: Acute Plan: Patient is having right upper quadrant pain radiating to the middle of the back that wakes him from sleep. He had an ultrasound in the emergency room that revealed he does have cholelithiasis with some large stones. I recommended laparoscopic cholecystectomy. I discussed the procedure in detail with the patient. I discussed the risks, benefits, and alternatives of the procedure. I discussed the risks including but not limited to bleeding, infection, injury to surrounding organs such as the liver, bile duct, bowels. I did discuss the possibility of having to convert to an open procedure as well as the possibility that if any injuries occurred this may necessitate further surgery at a tertiary care center. Anil Pastrana MD Pager: [facility] [address] [place] [address], [address] [place] [address] Office: I have examined the patient and the H&P has been reviewed. There are no clinical changes since date of exam.
[2023-12-19] MEDS: Cefotetan 2 GM in 0.9% NS 100 ML IV (09:30)
--- NOTE | 2023-12-19 09:30 | RAD_ITS ---
STUDY: INTRAOPERATIVE CHOLANGIOGRAM. REASON FOR EXAM: Male, 38 years old. Laparoscopic cholecystectomy. FLUOROSCOPY TIME (if supplied): ( 7 seconds ) minutes/seconds. 1.98 mGy TECHNIQUE: An intraoperative cholangiogram was performed by the surgeon. Imaging was supplied. COMPARISON: None. FINDINGS: The intra and extrahepatic biliary ducts are unremarkable. Free flow of contrast is seen entering the duodenum. RAD/Cholangiogram/ O R,Initial IMPRESSION: Unremarkable intraoperative cholangiogram. Electronically Signed: Jonathan Alaniz MD at 13:03 EST ,
--- NOTE | 2023-12-19 10:20 | GALL_PTH ---
PATHOLOGY RESULTS PATIENT: MANOLO GUZMAN LOC: [facility] [place] U#:[id number] AGE/SX: 38/M ROOM: RE12/19/[address]: Dr. Anil Pastrana MD : 1985 BED: DIS: 12/19/2023 SPEC #: [id number] RECD: 12/19/23 12:19 STATUS: JONI CARMEN #: [id number] CATRACHITO: 12/19/23 10:[address]: Anil Pastrana DEPT: SURGICAL PATHOLOGY RECD BY: Miracle Jaramillo ENTERED: 12/19/23 12:19 SP TYPE: GALLBLADDE Tissues: Gallbladder, NOS Procedures: Surgery Specimen Level III HEADER OPERATION: Laparoscopic cholecystectomy with IOC PRE-OP DIAGNOSIS: Gallstones TISSUE SUBMITTED: Gallbladder MICROSCOPIC DIAGNOSIS Gallbladder, cholecystectomy: Chronic cholecystitis and cholelithiasis. SJ:royal 12/20/2023 MICROSCOPIC DESCRIPTION Slides are reviewed. GROSS DESCRIPTION Received is one container labeled with the patient's name and designated gallbladder. The specimen consists of a gallbladder measuring 8.0 cm in length and up to 3.0 cm in diameter. The external surface is pink-phillip, smooth and glistening for the most part. Focally it is granular, hemorrhagic and contains cautery artifact. The gallbladder contains green-yellow mucoid bile and three yellow, mulberry stones measuring in aggregate 2.0 x 1.5 x 1.0 cm and 0.6 to 1.0 cm in greatest dimension. The mucosa is bile-stained and without any mass lesions. The gallbladder wall measures up to 0.2 cm in thickness. Soap Boiler sections from the gallbladder and the cystic duct are submitted in one cassette. / SJ:royal 12/19/2023 TC:3 CPT: 63144
[2023-12-19] MEDS: Bupivacaine 0.25% 30 ML Vial (10:22)
--- NOTE | 2023-12-19 10:30 | OP.PCM_ITS ---
Report of Operation Date of Procedure: 12/19/23 Pre-Operative Diagnosis: Chronic cholecystitis and cholelithiasis Post-Operative Diagnosis: Same Surgery/Procedure Performed:: Laparoscopic cholecystectomy with cholangiograms Type of Anesthesia: General/Regional Specimen's removed: Gallbladder Estimated Blood Loss (mL): 5 Description of Procedure: After obtaining informed consent patient was brought back to the operating room. General anesthesia was induced. The abdomen was prepped and draped in usual sterile fashion. A small midline incision was made superior to the umbilicus and deepened to the level of fascia. The fascia was elevated and incised. Next the peritoneum was elevated and incised in the same fashion. Finger sweep was performed and the Bradshaw trocar was placed into the abdomen. The balloon was inflated. The abdomen was inflated to 15 mmHg. Next a camera was introduced into the abdomen and the abdomen was inspected. Next under direct visualization three 5-mm ports were placed one subxiphoid and 2 subcostal. Next the gallbladder was elevated and retracted toward the right shoulder. The peritoneum was stripped from the gallbladder. The infundibulum was located and retracted laterally. Next the triangle of Calot was dissected and the cystic duct and cystic artery were identified. Cholangiograms were performed. The Martinez clamp was used to clamp across the infundibulum but I was unable to access the gallbladder. Next a small harshal was made in the right upper quadrant and the Ranfac catheter was placed into the abdomen. A clip was placed on the proximal cystic duct and a small harshal was placed in the cystic duct and the Ranfac catheter was placed into the duct and a clip was placed over it. Under fluoroscopy contrast was instilled into the gallbladder and the common duct, cystic duct as well as proximal hepatic ducts were identified. There was good filling of the duodenum. There were no filling defects noted in the common bile duct. The clamp was removed as well as the needle and the infundibulum was grasped once more. Three hemolock clips were placed across the cystic duct. The cystic duct was then divided leaving 2 clips on the stump. The cystic artery was clipped and divided in the same fashion. The hook cautery was then used to take the gallbladder off of the gallbladder bed. Hemostasis was obtaine d. Gallbladder fossa was irrigated and no active bleeding or bile leakage was noted. Next the camera was introduced in the subxiphoid port. An Endopouch bag was placed through the umbilical port and the gallbladder was placed into it. The gallbladder was then removed through the umbilical incision. The camera was then reinserted through the umbilical port. The gallbladder fossa was inspected once more and noted to be hemostatic with no leaking bile. The abdomen was suctioned dry. The 5 mm ports were removed under direct visualization. The umbilical port was then removed and the air was removed from the abdomen. Next using an 0 Vicryl suture the umbilical fascia was closed in a [id number] fashion. The umbilical port site was irrigated local anesthetic was administered to all the incisions. All the incisions were closed with interrupted subcuticular 4-0 Monocryl sutures followed by Steri-Strips and dressings. The patient was awoken and taken to PACU in stable condition. Admit VTE Documentation VTE Mechan Device Prophylaxis: SCD's
--- NOTE | 2023-12-19 10:31 | EX.PCM.DISCH ---
Discharge Instructions Procedure Gallbladder Diet Discharge Diet: Light diet - advance as tolerated Activity Discharge Activity: May Not Drive (for 2-3 days or while taking narcotic pain medications.) and - (Do not drive, work heavy equipment or sign legal documents for 24 hours.) May shower in (days): 1 Lifting Restrictions: 20 lbs for 2 weeks Additional Activity Instructions:: Pain medication may cause nausea. You should typically eat light foods as you take your pain medications. Pain medication may also cause constipation. If this is a problem for you, please discuss with your doctor. Dressing / Incision Call your doctor if your incision/area has: Continuous Slow Oozing, Sudden Increased Bleeding, Increased Pain/ Swelling, Increased Redness and Foul Smelling Discharge Call your doctor if you observe: Fever of 101 or Higher Suture Line Care: Avoid Pulling/Pushing and Avoid Pinching/Bending Remove Dressing in: 2 days (Remove clear bandages in 2 days, remove Steri-Strips in 7 to 10 days.) Additional Dressing/Incision Instructions:: Leave operative bandaids on for 2 days. Follow Up Care Please Follow Up With: Anil Pastrana MD When: Please call to schedule 2 week follow up appointment. [phone] Test Results: Test results from this visit will be discussed in further detail at your follow-up appointment, if applicable. Discharge Plan Admission Attending Provider: Anil Pastrana Primary Care Provider: Jeronimo Zamora Discharge Orders/Prescriptions Prescriptions: New acetaminophen 325 mg Tablet 650 mg PO Q4H PRN PRN (Reason: Pain Or Fever) Qty: 0 0RF oxycodone 5 mg Tablet 5 - 10 mg PO Q4H PRN PRN (Reason: Pain Score 4-10/10) 5 Days Qty: 20 0RF Discontinued hydrocodone-acetaminophen [hydrocodone-acetaminophen] 5-325 mg tablet 1 tab PO Q6H PRN PRN (Reason: Pain) 3 Days Qty: 10 0RF No Action famotidine 10 mg tablet 10 mg PO DAILY PRN (Reason: GERD) Referrals / Follow Up: Jeronimo Zamora, [employer] [Primary Care Provider] - Disposition Disposition (needs filled in before D/C Order can be placed): Home, Self Care
[2023-12-19] MEDS: oxyCODONE 5 MG Tablet PO (12:08)
[2023-12-19] MEDS: Acetaminophen 325 MG Tablet 650 MG PO (12:08)
== END 2023-12-19 15:53 | disposition home or self-care (01) ==
LOC: SDC 08:41 → AC 08:42
PROVIDERS: PCP Nurse Practitioner Family; Referring Provider Surgery; Visit Provider Surgery
PROC: (CPT 47610; principal; 2023-12-19 10:00)
DX: K80.10 Calculus of gallbladder with chronic cholecystitis without obstruction (principal); F17.200 Nicotine dependence, unspecified, uncomplicated
CPT/HCPCS: 47563; 00790; 74300; 76000; 88304; 93005; J7120; J2405

== ENCOUNTER → 2024-05-23 | Outpatient (CLI) | payer MEDICAID, SELFPAY ==
--- NOTE | 2024-05-23 11:00 | RAD_ITS ---
STUDY: X-RAY - UNILATERAL RIBS ( LEFT ) REASON FOR EXAM: Male, 39 years old. Rib pain. TECHNIQUE: 4 views of the left ribs. COMPARISON: None. FINDINGS: Normal visualized ribs without a demonstrated fracture. The visualized lung is clear and expanded. RAD/Ribs Unil 2V No CXR IMPRESSION: Normal x-ray examination of the left ribs. Electronically Signed: Liu Sebastian MD at 11:37 EDT ,
== END | disposition home or self-care (01) ==
LOC: MTRAD 11:00
PROVIDERS: PCP Nurse Practitioner Family; Referring Provider Physician Assistant Surgical; Visit Provider Physician Assistant Surgical
DX: R07.81 Pleurodynia (principal)
CPT/HCPCS: 71100

== ENCOUNTER → 2024-06-18 | Outpatient (CLI) | payer MEDICAID, SELFPAY ==
[2024-06-18 12:57] LABS: Absolute Lymphocyte Count 1.71 X10^3/uL (0.83-4.51); Absolute Neutrophil Count 3.3 X10^3/uL (2.0-7.7); Basophil# 0.05 X10^3/uL; Basophil% 0.8 % (0-1); Eosinophil# 0.18 X10^3/uL; Eosinophils% 3.1 % (0-5); Hematocrit 42.2 % (40-54); Hemoglobin 14.4 g/dL (13.0-16.5); Lymphocyte # 1.71 X10^3/ul (0.83-4.51); Mean Corp Hgb Conc 34.1 g/dL (32-36); Mean Corpuscular Hgb 30.3 pg (27.0-32.0); Mean Corpuscular Volume 88.7 fL (80-94); Mean Platelet Vol. 9.1 fl (6.2-12.0); Monocyte# 0.63 X10^3/uL; Monocyte% 10.7 % (0-10); NRBC Flagged by Analyzer 0 % (0-5); Neutrophil # 3.31 X10^3/uL (2.7-7.7); Neutrophil % 56.1 % (47-70); Platelet Count 319 K/mm3 (150-450); RBC Distribution Width CV 12.4 % (11.6-14.6); RBC Distribution Width SD 40.6 fl (35.1-43.9); Red Blood Count 4.76 M/mm3 (4.6-6.2); White Blood Count 5.9 K/mm3 (4.4-11.0)
[2024-06-18 13:40] LABS: ALB/GLOB Ratio 1.1 RATIO (0.9-2.4); AST(SGOT) 16 U/L (15-37); Alanine Aminotransfer ALT/SGPT 18 U/L (16-61); Albumin, Serum 3.7 g/dL (3.2-5.0); Alkaline Phosphatase 83 U/L (45-117); Anion Gap 9 (5-15); BUN 9 mg/dL (7-18); BUN/Creat Ratio 10.8 RATIO (10-20); Calcium,Total 9.1 mg/dL (8.5-10.1); Chloride 107 mmol/L (98-107); Creatinine, Serum 0.83 mg/dL (0.70-1.30); EST Glomerular Filtration Rate 110 mL/min (>60); Est Glom Filt Rate - Afr Amer 134 mL/min (>60); Globulin 3.4 g/dL (2.2-4.2); Glucose 96 mg/dL (74-106); Potassium 3.8 mmol/L (3.5-5.1); Protein, Total 7.1 g/dL (6.4-8.2); Sodium Level 140 mmol/L (136-145); Thyroid Stim Hormone (TSH) 0.85 uIU/mL (0.358-3.74)
== END | disposition home or self-care (01) ==
LOC: VSLAB 09:51
PROVIDERS: PCP Nurse Practitioner Family; Visit Provider Nurse Practitioner Family
DX: K21.9 Gastro-esophageal reflux disease without esophagitis (principal)
CPT/HCPCS: 36415; 80053; 84443; 85025

== ENCOUNTER → 2024-07-25 | Outpatient (CLI) | payer MEDICAID, SELFPAY ==
--- NOTE | 2024-07-25 08:28 | CT_ITS ---
STUDY: CT CHEST WITHOUT CONTRAST REASON FOR EXAM: Male, 39 years old. SOLITARY PULMONARY NODULE RADIATION DOSAGE (If Supplied By Facility): CTDIvol = ( 7.75 ) mGy, DLP = ( 292.25 ) mGycm TECHNIQUE: Transaxial imaging was performed without the administration of intravenous contrast material. Multiplanar coronal and sagittal images were reformatted. Individualized dose optimization techniques were used for this CT. COMPARISON: No relevant priors. FINDINGS: CHEST Small benign-appearing bilateral axillary lymph nodes. 1 mm noncalcified nodule in the peripheral lateral aspect of the right upper lobe as seen on axial image #51. This may represent a noncalcified granuloma. There is no demonstrated pleural abnormality. Normal heart and pericardium. Normal mediastinum. Normal hilar regions. Normal unenhanced pulmonary arteries. Normal aorta arch and descending thoracic aorta. Normal osseous structures. The patient is status post cholecystectomy. CT/Chest without Contrast IMPRESSION: Normal unenhanced CT chest T abdomen examination. Electronically Signed: Jonathan Alaniz MD at 10:49 EDT ,
== END | disposition home or self-care (01) ==
LOC: CT 08:27
PROVIDERS: PCP Nurse Practitioner Family; Referring Provider Nurse Practitioner Family; Visit Provider Nurse Practitioner Family
DX: R91.1 Solitary pulmonary nodule (principal)
CPT/HCPCS: 71250

== ENCOUNTER 2025-06-03 22:28 | Emergency (ER) | payer MEDICAID, SELFPAY ==
[2025-06-03 22:28] VITALS: BP 145/100; PULSE 98; RESP 18; TEMP 36.9; O2SAT 98
[2025-06-03 22:31] VITALS: BP 145/100; PULSE 98; RESP 18; TEMP 36.9; O2SAT 98
--- NOTE | 2025-06-03 22:46 | CT_ITS ---
PROCEDURE: ABDOMEN/PELVIS WITHOUT CONT 06/03/2025 REASON FOR EXAM: RIGHT FLANK PAIN TECHNIQUE: ABDOMEN/PELVIS WITHOUT CONT Noncontrast technique limits evaluation of the abdominal and pelvic viscera. Coronal and Sagittal reconstruction series were provided. One or more dose reduction techniques were used (e.g., Automated exposure control, adjustment of the mA and/or kV according to patient size, use of iterative reconstruction technique). RADIATION DOSE SUMMARY: CTDlvol: 6.24 mGy DLP: 325.72 mGycm COMPARISON: Abdominal CT 08/29/2023. FINDINGS: Lung bases: Clear. Liver: Unremarkable. Gallbladder: Surgically absent. No biliary ductal dilatation. Spleen: Normal size and morphology. Pancreas: Unremarkable. Adrenals: Unremarkable. Kidneys: 6 mm obstructive stone in the proximal right ureter lodged at the ureteropelvic junction. Associated mild right hydronephrosis and perinephric fat stranding/edema. No additional ureteral stones. Several additional bilateral small nonobstructive renal stones. No left hydronephrosis. Bladder: Underdistended but grossly unremarkable, no bladder calculus is seen. Reproductive Organs: Unremarkable. Bowel: No evidence of obstruction or active inflammatory process. Normal appendix. Lymph nodes: No suspicious lymph node enlargement. Vasculature: Normal course and caliber of the abdominal aorta and IVC. Peritoneum / Retroperitoneum: No ascites or free air. Musculoskeletal: No significant abnormality. CT/Abdomen/Pelvis without Cont IMPRESSION: 1. Obstructive 6 mm stone in the proximal right ureter at the ureteropelvic kamila ction, with associated mild right hydronephrosis and perinephric edema. 2. Several additional bilateral small nonobstructive renal stones. Reading Location: [id number]
[2025-06-03] MEDS: Ketorolac 30 MG/ML Syringe IV (22:56)
[2025-06-03] MEDS: 0.9% Normal Saline (1000mL) 1,000 ML 999 ML IV (22:56)
[2025-06-03 23:01] VITALS: BMI 25.2
[2025-06-03 23:03] LABS: Hematocrit 41.3 % (40-54); Hemoglobin 14.8 g/dL (13.0-16.5); Immature Granulocytes Count 0.020 X10^3/uL (0.0-0.0); Mean Corp Hgb Conc 35.8 g/dL (32-36); Mean Corpuscular Volume 84.8 fL (80-94); Mean Platelet Vol. 9.2 fl (6.2-12.0); NRBC Flagged by Analyzer 0 % (0-5); Platelet Count 313 K/mm3 (150-450); RBC Distribution Width CV 12.5 % (11.6-14.6); RBC Distribution Width SD 38.1 fl (35.1-43.9); Red Blood Count 4.87 M/mm3 (4.6-6.2); White Blood Count 9.6 K/mm3 (4.4-11.0)
[2025-06-03 23:21] LABS: Anion Gap 13 (5-15); BUN 8 mg/dL (4-19); BUN/Creat Ratio 8.0 RATIO (10-20); Calcium,Total 10.0 mg/dL (7.6-11.0); Carbon Dioxide 24.3 mmol/L (21.0-32.0); Chloride 102 mmol/L (98-108); Estimated Creatinine Clearance 82.98 ml/min (50-250); Glucose 91 mg/dL (70-99); Potassium 3.6 mmol/L (3.3-5.1)
[2025-06-03 23:31] VITALS: BP 133/99; PULSE 96; RESP 14; TEMP 36.8; O2SAT 100
--- OUTSIDE RECORDS SUMMARY | 2025-06-03 23:41 | XMS RPT_ITS | CCD ---
Author Organization [facility] Care Team Providers Care Forecast Analyst Name Role Phone Arturo Hodge Primary Care Provider Unavail able Zamora COPRA PROCESSOR, COPRA PROCESSOR-C Jeronimo Primary Care Provider Zamora COPRA PROCESSOR, COPRA PROCESSOR-C Jeronimo Referring Provider SABINA Freeman Attending Provider SBAINA Freeman Attending Provider Zamora VSC, COPRA PROCESSOR-C Jeronimo Primary Care Provider Zamora VSC, COPRA PROCESSOR-C Jeronimo Referring Provider Dr. Anil Pastrana Attending Provider Dr. Anil Pastrana Referring Provider Dr. Anil Pastrana Other Provider ARTURO HODGE Primary Care Unavailable Zamora WORLD TRAVEL COUNSELOR, Jeronimo Primary Care Provider Zamora VSC, Jeronimo Primary Care Unavailable Zamora VSC, Jeronimo Attending Unavailable Zamora VSC, Jeronimo Primary Care Unavailable Zamora VSC, Jeronimo Referring Unavailable Zamora VSC, Jeronimo Attending Unavailable Zamora COPRA PROCESSOR, Jeronimo Referring Unavailable Zamora COPRA PROCESSOR, Jeronimo Primary Care Unavailable Zamora COPRA PROCESSOR, Jeronimo Attending Unavailable Zamora VSC, Jeronimo Primary Care Unavailable Zamora VSC, Jeronimo Referring Unavailable Anil Pastrana Attending Unavailable Zamora VSC, Jeronimo Primary Care Unavailable Zamora VSC, Jeronimo Referring Unavailable Roxanne Thompson Attending Unavailable Anil Pastrana Consulting Unavailable Zamora VSC, Jeronimo Primary Care Unavailable Anil Pastrana Referring Unavailable Anil Pastrana Attending Unavailable Zamora VSC, Jeronimo Primary Care Unavailable Zamora VSC, Jeronimo Referring Unavailable Paulino Hernández Attending Unavailable Zamora VSC, Jeronimo Primary Care Unavailable Zamora VSC, Jeronimo Referring Unavailable Anil Pastrana Attending Unavailable Zamora VSC, Jeronimo Primary Care Unavailable Zamora VSC, Jeronimo Referring Unavailable Zamora VSC, Jeronimo Attending Unavailable Zamora VSC, Jeronimo Primary Care Unavailable Zamora VSC, Jeronimo Referring Unavailable Zamora VSC, Jeronimo Attending Unavailable Polo Han Attending Unavailable Zamora COPRA PROCESSOR, Jeronimo Primary Care Unavailable Eze Holland Attending Unavailable Zamora VSC, Jeronimo Primary Care Unavailable Burt Celaya Attending Unavailable Zamora VSC, Jeronimo Primary Care Unavailable Anil Pastrana Referring Unavailable Zamora VSC, Jeronimo Primary Care Unavailable Anil Pastrana Attending Unavailable Zamora VSC, Jeronimo Primary Care Unavailable Yung MUHAMMAD, Paulino Referring Unavailable Yung MUHAMMAD, Paulino Attending Unavailable Medications Current Medications Medication Drug Class(es) Dates Sig (Normalized) Sig (Original) acetaminophen 325 mg oral tablet (1 source) Start: 12-19-2023 take 650 mg by mouth every four hours as needed Acetaminophen Active 650 MG PO EVERY 4 HOURS NEEDED 0 December 19, 2023 12:00am famotidine 10 mg oral tablet (3 sources) Histamine-2 Receptor Antagonist Start: 10-22-2023 take 10 mg by mouth once daily Famotidine Active 10 MG PO DAILY October 22, 2023 12:00am Fairborn (Nk) (3 sources) Start: 09-17-2023 Fairborn (Nk) Active September 16, 2023 11:00pm Start: 09-17-2023 Fairborn (Nk) A ctive September 17, 2023 12:00am omeprazole 20 mg delayed release oral capsule (1 source) Proton Pump Inhibitor Start: 06-13-2024 take 1 capsule by mouth once daily omeprazole (PRILOSEC) 20 mg capsule Take 1 capsule by mouth once daily for 14 days. 14 capsule 06/13/2024 Active oxyCODONE hydrochloride 5 mg oral tablet (1 source) Opioid Agonist Start: 12-19-2023 take 5-10 mg by mouth every four hours as needed Oxycodone Active 5 - 10 MG PO EVERY 4 HOURS NEEDED 20 December 19, 2023 Completed/Discontinued Medications Medication Drug Class(es) Dates Sig (Normalized) Sig (Original) acetaminophen 300 mg / codeine phosphate 30 mg oral tablet (7 sources) Opioid Agonist Start: 01-19-2021 End: 07-13-2021 Acetaminophen-Cod eine Discontinued 1 EACH PO NEEDED January 19, 2021 12:00am July 13, 2021 7:45am acetaminophen 325 mg / HYDROcodone bitartrate 5 mg oral tablet (2 sources) Opioid Agonist Start: 12-10-2023 End: 12-19-2023 take 1 tablet by mouth every six hours as needed Hydrocodone-Aceta minophen Discontinued 1 TABLET PO EVERY 6 HOURS NEEDED 08 21December 10, 2023 December 19, 2023 10:33am doxycycline monohydrate 100 mg oral capsule (7 sources) Tetracycline-class Drug Start: 01-19-2021 End: 07-13-2021 take 100 mg by mouth twice daily Doxycycline Monohydrate Discontinued 100 MG PO TWICE A DAY January 19, 2021 12:00am July 13, 2021 7:45am ibuprofen 600 mg oral tablet (7 sources) Nonsteroidal Anti-inflammatory Drug Start: 07-13-2021 End: 09-17-2023 take 600 mg by mouth three times daily at mealtime Ibuprofen Discontinued 600 MG PO THREE TIMES A DAY July 12, 2021 11:00pm September 17, 2023 12:08am take with food mupirocin 0.02 mg/mg topical ointment (7 sources) RNA Synthetase Inhibitor Antibacterial Start: 01-19-2021 End: 07-13-2021 Mupirocin Discontinued 1 APPLIC TOPICAL THREE TIMES A DAY January 19, 2021 12:00am July 13, 2021 7:45am sulfamethoxazole 800 mg / trimethoprim 160 mg oral tablet (7 sources) Dihydrofolate Reductase Inhibitor Antibacterial, Sulfonamide Antimicrobial Start: 01-19-2021 End: 07-13-2021 Sulfamethoxazole- Trimethoprim Discontinued 1 EACH PO DAILY January 19, 2021 12:00am July 13, 2021 7:45am X10 DAYS Problems Active Problems Problem Classification Problem Date Documented Da te Episodic/Chronic Calculus of urinary tract (7 sources) History of calculus of kidney; Translations: [Personal history of urinary calculi] 07-13-2021 Episodic Esophageal disorders (10 sources) Gastroesophageal reflux disease; Translations: [Gastro-esophageal reflux disease without esophagitis] Onset: 05-28-2023 Chronic Immunizations and screening for infectious disease (1 source) Exposure to sexually transmissible disorder; Translations: [Contact with and (suspected) exposure to infections with a predominantly sexual mode of transmission] 08-30-2023 Episodic Other gastrointestinal disorders (2 sources) H/O: gallstones; Translations: [Personal history of other diseases of the digestive system] 12-10-2023 Episodic Other injuries and conditions due to external causes (7 sources) Injury of groin; Translations: [Unspecified injury of abdomen, initial encounter] 07-13-2021 Episodic Other injuries and conditions due to external causes (7 sources) Local infection of wound; Translations: [Other injury of unspecified body region, initial encounter] 01-21-2021 Episodic Other liver diseases (1 source) Liver disease, unspecified; Translations: [Liver disease, unspecified] Onset: 3 Chronic Other lower respiratory disease (1 source) Solitary pulmonary nodule; Translations: [Solitary pulmonary nodule] Onset: 4 Episodic Other lower respiratory disease (1 source) Pleurodynia; Translations: [Pleurodynia] Onset: 4 Episodic Past or Other Problems Problem Classification Problem Date Documented Date Episodic/Chronic Abdominal pain (20 sources) Right inguinal pain; Translations: [Right lower quadrant pain] Onset: 09-21-2023 07-13-2021 Episodic Biliary tract disease (13 sources) Gallstone; Translations: [Calculus of gallbladder without cholecystitis without obstruction] Onset: 12-14-2023 10-23-2023 Episodic Results Test Name Value Interpretation Reference Range Facil it Surgery Visit Reporton 08-25 Surgery Visit Report [facility] [address] [place] [address]. [address] [place] [address] OFFICE VISIT Date of Service: 08/25/24 MR#: [id number] Acct: [id number] Name: GUZMANMANOLO PETERS Rep #: [id number] : 1985 Provider: Dr. Anil franco MD Age/Sex: 39/M Location: [facility] Status: Signed Intake Vital Signs 05/23/24 11:16 08/25/24 09:31 Height 5 ft 5 in 5 ft 5 in Weight: 150 lb 155 lb BMI 25.0 25.7 BP 110/74 122/76 H Blood Pressure Location Lt brachial Rt brachial Position Sitting Sitting Respiration 16 16 Pulse 67 74 Pulse Source Monitor Monitor Temp 98.7 F 97.9 F Temp Source Temporal Temporal Pulse Oximetry (%) 97 99 Oxygen Delivery Method room air room air Intake Visit Reasons: Gastroesophageal reflux disease (GERD) Chief Complaint: Consult EGD Accompanied by: Significant Other Is patient in pain?: No Allergies No Known Allergies Allergy (Verified 08/25/24 09:31) Medications ???Medication ???Instructions ???Recorded ???Confirmed ???Type dextroamphetamine-amp hetamine ER 1 cap PO QAM 08/25/24 08/25/24 History 15 mg 24hr capsule,extend release PFSH Medical History Wears glasses Alcohol use Restless legs Diverticulosis GERD (gastroesophageal reflux disease) Encounter for preventative adult health care examination Injury of groin Right inguinal pain History of kidney stones Surgical History S/P laparoscopic cholecystectomy Family History Brother Asthma Mother Breast cancer Skin cancer Social History Smoking Status: Current every day smoker tobacco type: e-cigarettes alcohol intake: current alcohol intake frequency: a few times a week Alcohol type: beer substance use type: does not use what type of physical activity do you participate in: other details: sports/ jui [email or web address].meu HPI HPI HPI: Patient is a 39-year-old male here for bulging in his epigastric region. Patient reports no heartburn or pain in his abdomen. ROS General General: No weight change, fatigue, colon cancer or breast cancer HEENT HEENT: No difficulty swallowing, eye injury, eye surgery or swollen glands Endo Endocrine: No thyroid disease, diabetes mellitus or thyroid cancer Skin Skin: No rash or changing moles Musc Musculoskeletal: Yes back problems; No arthritis, rheumatoid arthritis or gout Cardio Cardiovascular: No murmur, pacemaker, heart disease, atrial fibrillation, high blood pressure, heart attack or heart stent Psych Psychiatric: No depression or anxiety Resp Respiratory: Yes shortness of breath, No sleep apnea, No cough, No COPD, No asthma and No emphysema Additional Details: w/exertion Gastro Gastrointestinal: No abdominal pain, No nausea or vomiting, Yes diarrhea, No constipation, No blood in stool, Yes acid reflux, No hemorrhoids, No ulcers, Yes gallbladder problem and No black,tarry stools Sánchez Hematologic: No blood thinners, No blood disorders, No bleeding, No anemia and No blood clots Neuro Neurologic: No numbness and No tingling Assessment and Plan Assessment and Plan (1) Diastasis of rectus abdominis: Status: Acute Plan: The patient has diastases. I do not appreciate a hernia. He is not having any GERD symptoms or heartburn symptoms at this time. I do not believe any interventions need to be done I did discuss with him diastases recti. He is okay for normal activity. Anil Pastrana MD Pager: [facility] [address] [place] [address], [address] [place] [address] Office: Coding Level of Care Code Off vis,est,level 3 Diagnoses Diastasis of rectus abdominis M62.08 08/25/24 1016 Date Anil Pastrana MD [facility] Signature: Date (if applicable) CC: COPRA PROCESSOR-C Jeronimo Zamora Normal [facility] Chest without Contraston Chest without Contrast [facility] [address] [place] [address] [id number] Chest without Contrast MR#: [id number] Acct: [id number] Name: MANOLO GUZMAN Rep #: [id number] : 1985 M 39 From: Jonathan pratt MD PCP: MARY ALICE Brown Status: REG CLI Study: Chest without Contrast Date of Exam: 07/25/24 Exam# [id number] Ordering Dr: Jeronimo Zamora [facility] COPRA PROCESSOR-C ADDENDUM by Dr. Jonathan Alaniz MD on 08/05/24 at 1118 ======== ADDENDUM ======== [id number] ADDENDUM report for billing purposes. No coronary artery calcification is seen. Electronically Signed: Jonathan Alaniz MD at 11:18 EDT Reading Location ID and State: [facility] / [place] , Service support , 08/05/24 1118 Date cc: MARY ALICE Zamora * Signed ADDENDUM by Dr. Jonathan Alaniz MD on 08/05/[address]/Chest without Contrast IMPRESSION: undefined 08/05/24 1125 Date cc: MARY ALICE Zamora * Signed [id number] STUDY: CT CHEST WITHOUT CONTRAST REASON FOR EXAM: Male, 39 years old. SOLITARY PULMONARY NODULE RADIATION DOSAGE (If Supplied By Facility): CTDIvol = ( 7.75 ) mGy, DLP = ( 292.25 ) mGycm TECHNIQUE: Transaxial imaging was performed without the administration of intravenous contrast material. Multiplanar coronal and sagittal images were reformatted. Individualized dose optimization techniques were used for this CT. COMPARISON: No relevant priors. FINDINGS: CHEST Small benign-appearing bilateral axillary lymph nodes. 1 mm noncalcified nodule in the peripheral lateral aspect of the right upper lobe as seen on axial image #51. This may represent a noncalcified granuloma. There is no demonstrated pleural abnormality. Normal heart and pericardium. Normal mediastinum. Normal hilar regions. Normal unenhanced pulmonary arteries. Normal aorta arch and descending thoracic aorta. Normal osseous structures. The patient is status post cholecystectomy. CT/Chest without Contrast IMPRESSION: Normal unenhanced CT chest T abdomen examination. Electronically Signed: Jonathan Alaniz MD at 10:49 EDT , CC: MARY ALICE Zamora Truck Trailer Mechanic: Signed Normal [facility] CBC W/Diff, Automatedon 07-3 Absolute Lymph 1.71 X10 3/uL Normal 0.83-4.51 [facility] Comment on above: Performed By: #### L 100.0100, L500.4050, L501.9520 ####[facility] [address] [place], [address] Absolute Neut 3.3 X10 3/uL Normal 2.0-7.7 [facility] Comment on above: Performed By: #### L 100.0100, L500.4050, L501.9520 ####[facility] [address] [place], [address] Basophils/100 WBC (Bld) 0.8 % Normal 0-1 [facility] Comment on above: Performed By: #### L 100.0100, L500.4050, L501.9520 ####[facility] [address] [place], [address] Eosinophils/100 WBC (Bld) 3.1 % Normal 0-5 [facility] Comment on above: Performed By: #### L 100.0100, L500.4050, L501.9520 ####[facility] [address] [place], [address] Erythrocyte distribution width (RBC) [Ratio] 12.4 % Normal 11.6-14.6 [facility] Comment on above: Performed By: #### L 100.0100, L500.4050, L501.9520 ####[facility] [address] [place], [address] Hematocrit (Bld) [Volume fraction] 42.2 % Normal 40-54 [facility] Comment on above: Performed By: #### L 100.0100, L500.4050, L501.9520 ####[facility] [address] [place], [address] Hemoglobin (Bld) [Mass/Vol] 14.4 g/dL Normal 13.0-16.5 [facility] Comment on above: Performed By: #### L 100.0100, L500.4050, L501.9520 ####[facility] [address] [place], [address] IG% 0.300 Normal 0.0-0.9 [facility] Comment on above: Result Comment: IG% - Immature Granulocytes (promyelocytes, myelocytes and metamyelocytes) > 1% indicates that a LEFT SHIFT is Present. Performed By: #### L 100.0100, L500.4050, L501.9520 ####[facility] [address] [place], [address] Lymphocytes/100 WBC (Bld) 29.0 % Normal 19-41 [facility] Comment on above: Performed By: #### L 100.0100, L500.4050, L501.9520 ####[facility] [address] [place], [address] MCH (RBC) [Entitic mass] 30.3 pg Normal 27.0-32.0 [facility] Comment on above: Performed By: #### L 100.0100, L500.4050, L501.9520 ####[facility] [address] [place], [address] MCHC (RBC) [Mass/Vol] 34.1 g/dL Normal 32-36 [facility] Comment on above: Performed By: #### L 100.0100, L500.4050, L501.9520 ####[facility] [address] [place], [address] MCV (RBC) [Entitic vol] 88.7 fL Normal 80-94 [facility] Comment on above: Performed By: #### L 100.0100, L500.4050, L501.9520 ####[facility] [address] [place], [address] Monocytes/100 WBC (Bld) 10.7 % High 0-10 [facility] Comment on above: Performed By: #### L 100.0100, L500.4050, L501.9520 ####[facility] [address] [place], [address] Neutrophils/100 WBC (Bld) 56.1 % Normal 47-70 [facility] Comment on above: Performed By: #### L 100.0100, L500.4050, L501.9520 ####[facility] [address] [place], [address] Nucleated RBC (Bld) [#/Vol] 0 10*3/uL Normal 0-5 [facility] Comment on above: Performed By: #### L 100.0100, L500.4050, L501.9520 ####[facility] [address] [place], [address] Platelet mean volume (Bld) [Entitic vol] 9.1 fL Normal 6.2-12.0 [facility] Comment on above: Performed By: #### L 100.0100, L500.4050, L501.9520 ####[facility] [address] [place], [address] Platelets (Bld) [#/Vol] 319 10*3/uL Normal 150-450 [facility] Comment on above: Performed By: #### L 100.0100, L500.4050, L501.9520 ####[facility] [address] [place], [address] RBC (Bld) [#/Vol] 4.76 10*6/uL Normal 4.6-6.2 [facility] Comment on above: Performed By: #### L 100.0100, L500.4050, L501.9520 ####[facility] [address] [place], [address] RDW SD 40.6 fl Normal 35.1-43.9 [facility] Comment on above: Performed By: #### L 100.0100, L500.4050, L501.9520 ####[facility] [address] [place], [address] WBC (Bld) [#/Vol] 5.9 10*3/uL Normal 4.4-11.0 [facility] Comment on above: Performed By: #### L 100.0100, L500.4050, L501.9520 ####[facility] [address] [place], [address] Comprehensive Metabolic Prof [facility] 06-18-2024 Albumin [Mass/Vol] 3.7 g/dL Normal 3.2-5.0 [facility] Comment on above: Performed By: #### L 100.0100, L500.4050, L501.9520 ####[facility] [address] [place], [address] Albumin/Globulin [Mass ratio] 1.1 {ratio} Normal 0.9-2.4 [facility] Comment on above: Performed By: #### L 100.0100, L500.4050, L501.9520 ####[facility] [address] [place], [address] ALK P 83 U/L Normal 45-117 [facility] Comment on above: Performed By: #### L 100.0100, L500.4050, L501.9520 ####[facility] [address] [place], [address] ALT [Catalytic activity/Vol] 18 U/L Normal 16-61 [facility] Comment on above: Performed By: #### L 100.0100, L500.4050, L501.9520 ####[facility] [address] [place], [address] AST [Catalytic activity/Vol] 16 U/L Normal 15-37 [facility] Comment on above: Performed By: #### L 100.0100, L500.4050, L501.9520 ####[facility] [address] [place], [address] Bilirubin [Mass/Vol] 0.60 mg/dL Normal 0.20-1.00 [facility] Comment on above: Result Comment: For patients on eltrombopag therapy, use of Dimension [place] TBIL is not recommended. Performed By: #### L 100.0100, L500.4050, L501.9520 ####[facility] [address] [place], [address] BUN/CRE 10.8 RATIO Normal 10-20 [facility] Comment on above: Performed By: #### L 100.0100, L500.4050, L501.9520 ####[facility] [address] [place], [address] CA,Total 9.1 mg/dL Normal 8.5-10.1 [facility] Comment on above: Performed By: #### L 100.0100, L500.4050, L501.9520 ####[facility] [address] [place], [address] Chloride [Moles/Vol] 107 mmol/L Normal 98-107 [facility] Comment on above: Performed By: #### L 100.0100, L500.4050, L501.9520 ####[facility] [address] [place], [address] CO2 [Moles/Vol] 24.0 mmol/L Normal 21.0-32.0 [facility] Comment on above: Performed By: #### L 100.0100, L500.4050, L501.9520 ####[facility] [address] [place], [address] Creatinine [Mass/Vol] 0.83 mg/dL Normal 0.70-1.30 [facility] Comment on above: Result Comment: The validity of the calculated GFR GFRAA in patients over 70 years has not been determined. Clinical correlation is essential. Performed By: #### L 100.0100, L500.4050, L501.9520 ####[facility] [address] [place], [address] EST GFR - AA 134 mL/min Normal >60 [facility] Comment on above: Result Comment: Afri can Iraqi GFR Calc Performed By: #### L 100.0100, L500.4050, L501.9520 ####[facility] [address] [place], [address] GAP 9 Normal 5-15 [facility] Comment on above: Performed By: #### L 100.0100, L500.4050, L501.9520 ####[facility] [address] [place], [address] GFR/1.73 sq M.predicted among non-blacks MDRD (S/P/Bld) [Vol rate/Area] 110 mL/min/{1.73_m2} Normal >60 [facility] Comment on above: Result Comment: Non- GFR Calc Performed By: #### L 100.0100, L500.4050, L501.9520 ####[facility] [address] [place], [address] Globulin (S) [Mass/Vol] 3.4 g/dL Normal 2.2-4.2 [facility] Comment on above: Performed By: #### L 100.0100, L500.4050, L501.9520 ####[facility] [address] [place], [address] Glucose [Mass/Vol] 96 mg/dL Normal 74-106 [facility] Comment on above: Performed By: #### L 100.0100, L500.4050, L501.9520 ####[facility] [address] [place], [address] Potassium [Moles/Vol] 3.8 mmol/L Normal 3.5-5.1 [facility] Comment on above: Performed By: #### L 100.0100, L500.4050, L501.9520 ####[facility] [address] [place], [address] Sodium [Moles/Vol] 140 mmol/L Normal 136-145 [facility] Comment on above: Performed By: #### L 100.0100, L500.4050, L501.9520 ####[facility] [address] [place], [address] T PROT 7.1 g/dL Normal 6.4-8.2 [facility] Comment on above: Performed By: #### L 100.0100, L500.4050, L501.9520 ####[facility] [address] [place], [address] Urea nitrogen [Mass/Vol] 9 mg/dL Normal 7-18 [facility] Comment on above: Performed By: #### L 100.0100, L500.4050, L501.9520 ####[facility] [address] [place], [address] Thyroid Stim Hormone (TSH)on 06-18-2024 TSH 0.85 uIU/mL Normal 0.358-3.74 [facility] Comment on above: Performed By: #### L 100.0100, L500.4050, L501.9520 ####[facility] [address] [place], [address] CBC W Auto Differential pane l (Bld)on 06-13-2024 Basophils (Bld) [#/Vol] 0.05 10*3/uL Normal <0.11 [facility] Comment on above: Order Comment: Speci men Type: BLOOD SPECIMEN Ordering Facility: [facility] Address: [address] [place] [address] Performed By: #### 5 7021-8 #### [facility] CLIA [id number] [address] [place] Basophils/100 WBC (Bld) 0.3 % Normal [facility] Comment on above: Order Comment: Speci men Type: BLOOD SPECIMEN Ordering Facility: [facility] Address: [address] [place] [address] Performed By: #### 5 7021-8 #### [facility] CLIA [id number] [address] [place] Differential cell count method Nom (Bld) Auto Normal [facility] Comment on above: Order Comment: Speci men Type: BLOOD SPECIMEN Ordering Facility: [facility] Address: [address] [place] [address] Performed By: #### 5 7021-8 #### [facility] CLIA [id number] [address] [place] Eosinophils (Bld) [#/Vol] 0.11 10*3/uL Normal <0.46 [facility] Comment on above: Order Comment: Speci men Type: BLOOD SPECIMEN Ordering Facility: [facility] Address: [address] [place] [address] Performed By: #### 5 7021-8 #### [facility] CLIA [id number] [address] Eosinophils/100 WBC (Bld) 0.6 % Normal [facility] Comment on above: Order Comment: Speci men Type: BLOOD SPECIMEN Ordering Facility: [facility] Address: [address] [place] [address] Performed By: #### 5 7021-8 #### [facility] CLIA [id number] [address] Erythrocyte distribution width (RBC) [Ratio] 12.4 % Normal 11.5-15.0 [facility] Comment on above: Order Comment: Speci men Type: BLOOD SPECIMEN Ordering Facility: [facility] Address: [address] [place] [address] Performed By: #### 5 7021-8 #### [facility] CLIA [id number] [address] Hematocrit (Bld) [Volume fraction] 43.5 % Normal 39.0-51.0 [facility] Comment on above: Order Comment: Speci men Type: BLOOD SPECIMEN Ordering Facility: [facility] Address: [address] [place] [address] Performed By: #### 5 7021-8 #### [facility] CLIA [id number] [address] [place] Hemoglobin (Bld) [Mass/Vol] 15.2 g/dL Normal 13.0-17.0 [facility] Comment on above: Order Comment: Speci men Type: BLOOD SPECIMEN Ordering Facility: [facility] Address: [address] [place] [address] Performed By: #### 5 7021-8 #### [facility] CLIA [id number] [address] [place] Immature granulocytes (Bld) [#/Vol] 0.07 10*3/uL Normal <0.10 [facility] Comment on above: Order Comment: Speci men Type: BLOOD SPECIMEN Ordering Facility: [facility] Address: [address] [place] [address] Performed By: #### 5 7021-8 #### [facility] CLIA [id number] [address] Immature granulocytes/100 WBC (Bld) 0.4 % Normal [facility] Comment on above: Order Comment: Speci men Type: BLOOD SPECIMEN Ordering Facility: [facility] Address: [address] [place] [address] Performed By: #### 5 7021-8 #### [facility] CLIA [id number] [address] Lymphocytes (Bld) [#/Vol] 1.42 10*3/uL Normal 1.00-4.00 [facility] Comment on above: Order Comment: Speci men Type: BLOOD SPECIMEN Ordering Facility: [facility] Address: [address] [place] [address] Performed By: #### 5 7021-8 #### [facility] CLIA [id number] [address] Lymphocytes/100 WBC (Bld) 8.1 % Normal [facility] Comment on above: Order Comment: Speci men Type: BLOOD SPECIMEN Ordering Facility: [facility] Address: [address] [place] [address] Performed By: #### 5 7021-8 #### [facility] CLIA [id number] [address] [place] MCH (RBC) [Entitic mass] 30.8 pg Normal 26.0-34.0 [facility] Comment on above: Order Comment: Speci men Type: BLOOD SPECIMEN Ordering Facility: [facility] Address: [address] [place] [address] Performed By: #### 5 7021-8 #### [facility] CLIA [id number] [address] STATES [facility] MCHC (RBC) [Mass/Vol] 34.9 g/dL Normal 30.5-36.0 [facility] Comment on above: Order Comment: Speci men Type: BLOOD SPECIMEN Ordering Facility: [facility] Address: [address] [place] [address] Performed By: #### 5 7021-8 #### [facility] CLIA [id number] [address] MCV (RBC) [Entitic vol] 88.2 fL Normal 80.0-100.0 [facility] Comment on above: Order Comment: Speci men Type: BLOOD SPECIMEN Ordering Facility: [facility] Address: [address] [place] [address] Performed By: #### 5 7021-8 #### [facility] CLIA [id number] [address] [place] Monocytes (Bld) [#/Vol] 1.02 10*3/uL High <0.87 [facility] Comment on above: Order Comment: Speci men Type: BLOOD SPECIMEN Ordering Facility: [facility] Address: [address] [place] [address] Performed By: #### 5 7021-8 #### [facility] CLIA [id number] [address] Monocytes/100 WBC (Bld) 5.8 % Normal [facility] Comment on above: Order Comment: Speci men Type: BLOOD SPECIMEN Ordering Facility: [facility] Address: [address] [place] [address] Performed By: #### 5 7021-8 #### [facility] CLIA [id number] [address] [place] Neutrophils (Bld) [#/Vol] 14.79 10*3/uL High 1.45-7.50 [facility] Comment on above: Order Comment: Speci men Type: BLOOD SPECIMEN Ordering Facility: [facility] Address: [address] [place] [address] Performed By: #### 5 7021-8 #### [facility] CLIA [id number] [address] Neutrophils/100 WBC (Bld) 84.8 % Normal [facility] Comment on above: Order Comment: Speci men Type: BLOOD SPECIMEN Ordering Facility: [facility] Address: [address] [place] [address] Performed By: #### 5 7021-8 #### [facility] CLIA [id number] [address] Nucleated RBC (Bld) [#/Vol] 10*3/uL Normal <0.01 [facility] Comment on above: Order Comment: Speci men Type: BLOOD SPECIMEN Ordering Facility: [facility] Address: [address] [place] [address] Performed By: #### 5 7021-8 #### [facility] CLIA [id number] [address] Nucleated RBC/100 WBC (Bld) [Ratio] 0.0 /100 WBC Normal [facility] Comment on above: Order Comment: Speci men Type: BLOOD SPECIMEN Ordering Facility: [facility] Address: [address] [place] [address] Performed By: #### 5 7021-8 #### [facility] CLIA [id number] [address] Platelet mean volume (Bld) [Entitic vol] 9.1 fL Normal 9.0-12.7 [facility] Comment on above: Order Comment: Speci men Type: BLOOD SPECIMEN Ordering Facility: [facility] Address: [address] [place] [address] Performed By: #### 5 7021-8 #### [facility] CLIA [id number] [address] Platelets (Bld) [#/Vol] 317 10*3/uL Normal 150-400 [facility] Comment on above: Order Comment: Speci men Type: BLOOD SPECIMEN Ordering Facility: [facility] Address: [address] [place] [address] Performed By: #### 5 7021-8 #### [facility] CLIA [id number] [address] OF [facility] RBC (Bld) [#/Vol] 4.93 10*6/uL Normal 4.20-6.00 [facility] Comment on above: Order Comment: Speci men Type: BLOOD SPECIMEN Ordering Facility: [facility] Address: [address] [place] [address] Performed By: #### 5 7021-8 #### [facility] CLIA [id number] [address] OF [facility] WBC (Bld) [#/Vol] 17.46 10*3/uL High 3.70-11.00 [facility] Comment on above: Order Comment: Speci men Type: BLOOD SPECIMEN Ordering Facility: [facility] Address: [address] [place] [address] Performed By: #### 5 7021-8 #### [facility] CLIA [id number] [address] Comprehensive metabolic 2000 panelon 06-13-2024 Albumin [Mass/Vol] 4.5 g/dL Normal 3.9-4.9 [facility] Comment on above: Order Comment: Speci men Type: BLOOD SPECIMEN Ordering Facility: [facility] Address: [address] [place] [address] Performed By: #### 3 040-3, 07852-5 #### [facility] CLIA [id number] [address] ALP [Catalytic activity/Vol] 98 U/L Normal 38-113 [facility] Comment on above: Order Comment: Speci men Type: BLOOD SPECIMEN Ordering Facility: [facility] Address: [address] [place] [address] Performed By: #### 3 -3, 47353-2 #### [facility] CLIA [id number] [address] OF [facility] ALT With P-5'-P [Catalytic activity/Vol] 22 U/L Normal 10-54 [facility] Comment on above: Order Comment: Speci men Type: BLOOD SPECIMEN Ordering Facility: [facility] Address: [address] [place] [address] Performed By: #### 3 -3, #### [facility] CLIA [id number] [address] STATES OF [facility] Anion gap [Moles/Vol] 17 mmol/L High 8-15 [facility] Comment on above: Order Comment: Speci men Type: BLOOD SPECIMEN Ordering Facility: [facility] Address: [address] [place] [address] Performed By: #### 3 , #### [facility] CLIA [id number] [address] AST With P-5'-P [Catalytic activity/Vol] 18 U/L Normal 14-40 [facility] Comment on above: Order Comment: Speci men Type: BLOOD SPECIMEN Ordering Facility: [facility] Address: [address] [place] [address] Performed By: #### 3 3, 64417-8 #### [facility] CLIA [id number] [address] STATES OF [facility] Bilirubin [Mass/Vol] 0.7 mg/dL Normal 0.2-1.3 [facility] Comment on above: Order Comment: Speci men Type: BLOOD SPECIMEN Ordering Facility: [facility] Address: [address] [place] [address] Performed By: #### 3 -3, 83347-5 #### [facility] CLIA [id number] [address] [place] Calcium [Mass/Vol] 9.2 mg/dL Normal 8.5-10.2 [facility] Comment on above: Order Comment: Speci men Type: BLOOD SPECIMEN Ordering Facility: [facility] Address: [address] [place] [address] Performed By: #### 3 040-3, 32062-2 #### [facility] CLIA [id number] [address] [place] Chloride [Moles/Vol] 101 mmol/L Normal 98-107 [facility] Comment on above: Order Comment: Speci men Type: BLOOD SPECIMEN Ordering Facility: [facility] Address: [address] [place] [address] Performed By: #### 3 040-3, 35173-2 #### [facility] CLIA [id number] [address] [place] CO2 [Moles/Vol] 23 mmol/L Normal 22-30 [facility] Comment on above: Order Comment: Speci men Type: BLOOD SPECIMEN Ordering Facility: [facility] Address: [address] [place] [address] Performed By: #### 3 040-3, 32712-7 #### [facility] CLIA [id number] [address] [place] [address] [place] Creatinine [Mass/Vol] 0.82 mg/dL Normal 0.73-1.22 [facility] Comment on above: Order Comment: Speci men Type: BLOOD SPECIMEN Ordering Facility: [facility] Address: [address] [place] [address] Performed By: #### 3 040-3, 03636-7 #### [facility] CLIA [id number] [address] [place] Creatinine and Glomerular filtration rate.predicted panel (S/P/Bld) 116 mL/min/1.73m??? Normal >=60 [facility] Comment on above: Order Comment: Speci men Type: BLOOD SPECIMEN Ordering Facility: [facility] Address: [address] [place] [address] Result Comment: Roselia mated Glomerular Filtration Rate (eGFR) is calculated using the 2020 CKD-EPI creatinine equation. This equation utilizes serum creatinine, sex, and age as parameters. The creatinine assay has traceable calibration to isotope dilution-mass spectrometry. Refer to KDIGO guidelines for clinical interpretation. In patients with unstable renal function, e.g. those with acute kidney injury, the eGFR may not accurately reflect actual GFR. Performed By: #### 3 040-3, 77067-5 #### [facility] CLIA [id number] 1 [place] [address] [place] Glucose [Mass/Vol] 91 mg/dL Normal 74-99 [facility] Comment on above: Order Comment: Ivan lemon Type: BLOOD SPECIMEN Ordering Facility: [facility] Address: [address] [place] [address] Result Comment: The [place] Diabetes Association (ADA) provides guidance for cutoff values for fasting glucose and random glucose. The ADA defines fasting as no caloric intake for at least 8 hours. Fasting plasma glucose results between 100 to 125 mg/dL indicate increased risk for diabetes (prediabetes). Fasting plasma glucose results greater than or equal to 126 mg/dL meet the criteria for diagnosis of diabetes. In the absence of unequivocal hyperglycemia, results should be confirmed by repeat testing. In a patient with classic symptoms of hyperglycemia or hyperglycemic crisis, random plasma glucose results greater than or equal to 200 mg/dL meet the criteria for diagnosis of diabetes. Reference: Standards of Medical Care in Diabetes 2016, [place] Diabetes Association. Diabetes Care. 2016.39(Suppl 1). Performed By: #### 3 040-3, 17301-3 #### [facility] CLIA [id number] [address] [place] [address] [place] Potassium [Moles/Vol] 4.3 mmol/L Normal 3.7-5.1 [facility] Comment on above: Order Comment: Ivan lemon Type: BLOOD SPECIMEN Ordering Facility: [facility] Address: [address] [place] [address] Performed By: #### 3 040-3, 09873-9 #### [facility] CLIA [id number] 1 [place] [address] [place] Protein [Mass/Vol] 7.2 g/dL Normal 6.3-8.0 [facility] Comment on above: Order Comment: Speci men Type: BLOOD SPECIMEN Ordering Facility: [facility] Address: [address] [place] [address] Performed By: #### 3 040-3, 00612-2 #### [facility] CLIA [id number] [address] STATES OF [facility] Sodium [Moles/Vol] 141 mmol/L Normal 136-144 [facility] Comment on above: Order Comment: Speci men Type: BLOOD SPECIMEN Ordering Facility: [facility] Address: [address] [place] [address] Performed By: #### 3 040-3, 35848-8 #### [facility] CLIA [id number] [address] STATES OF [facility] Urea nitrogen [Mass/Vol] 13 mg/dL Normal 9-24 [facility] Comment on above: Order Comment: Speci men Type: BLOOD SPECIMEN Ordering Facility: [facility] Address: [address] [place] [address] Performed By: #### 3 040-3, 62209-8 #### [facility] CLIA [id number] [address] OF [facility] ED NOTEon 06-13-2024 ED NOTE HNO ID: [id number] Author: ARIES WALLACE RN Service: ? Author Type: Registered Nurse Type: ED Notes Filed: 06/13/2024 11:37 Note Text: Bed: 45-ED Expected date: Expected time: Means of arrival: Comments: Triage Normal [facility] ED PROV NOTEon 06-13-2024 ED PROV NOTE HNO ID: [id number] Author: MOOK COSTA DO Service: Emergency Medicine Author Type: Physician Type: ED Provider Notes Filed: 06/23/2024 19:13 Note Text: ED Provider Note Patient Name: Manolo Guzman : 1985 SERVICE DATE: 06/13/24 History Patient presents with: Nausea AND Vomiting: Pt presents to triage with complaints of acid reflux that he woke up with this morning. Pt says he vomited shortly after and it looked like coffee grounds. Pt says he took pepcid this morning, but doesn't take it every day. Denies changes in stool. Denies abdominal pain. Pt says he drank a lot last night HPI Manolo Guzman is a 39-year-old male presenting for concerns of coffee-ground emesis this morning. Denies any medical history. Denies any history of chronic NSAID use, ulcer disease. Patient was heavily drinking the past week for a [employer] festival. Last night patient felt a lot of acid reflux sensation. Woke up this morning and had marked relief after single episode of emesis that looked like coffee grounds. Denies any history of hematemesis. Denies any hematochezia. Patient endorses mild lightheadedness otherwise denies any other acute complaints at this time. The vomiting was not forceful. Denies any fever, chills, cardiac or pulmonary complaints. Denies any abdominal or back pain, GI or symptoms. No past medical history on file. No past surgical history on file. No family history on file. Social History Tobacco Use Smoking status: Every Day Smokeless tobacco: Never Substance and Sexual Activity Alcohol use: Not on file Drug use: Not on file Sexual activity: Not on file ALLERGIES No Known Allergies Review of Systems please see HPI above Physical Exam Vitals [06/13/24 1135] BP Pulse Temp Temp src Resp SpO2 Weight Height 112/78 (!) 114 37.8 ?C (100 ?F) Oral 18 96 % 68 kg (150 lb) -- Physical Exam Constitutional: General: He is not in acute distress. Appearance: He is not ill-appearing or toxic-appearing. HENT: Mouth/Throat: Mouth: Mucous membranes are dry. Pharynx: Oropharynx is clear. Eyes: General: No scleral icterus. Extraocular Movements: Extraocular movements intact. Pupils: Pupils are equal, round, and reactive to light. Cardiovascular: Rate and Rhythm: Regular rhythm. Tachycardia present. Pulmonary: Effort: Pulmonary effort is normal. Breath sounds: No wheezing, rhonchi or rales. Abdominal: General: Abdomen is flat. Bowel sounds are normal. There is no distension. Palpations: Abdomen is soft. Tenderness: There is no abdominal tenderness. Musculoskeletal: General: Normal range of motion. Cervical back: Normal range of motion. Skin: General: Skin is warm and dry. Neurological: Mental Status: He is alert and oriented to person, place, and time. Diagnostic Testing ED Labs Ordered and Reviewed - No data to display Procedures ED Course / Clinical Impression Clinical Impressions as of 06/14/241841 Acute alcoholic gastritis with hemorrhage MDM / Disposition / Plan Manolo Guzman is a 39 year old male who presents for concerns of single episode coffee-ground emesis. On arrival to the emergency department patient is noted to be afebrile, non-hypoxic on room air, tachycardia at 114 bpm, and normotensive, and in no acute distress. Patient's overall clinical presentation consistent with alcoholic gastritis. Considered esophageal perforation, Boerhaave's, Francisca-Perla tear however nature of history described yields lower suspicion. No forceful retching emesis. CXR no free air or other acute disease process noted. Patient asymptomatic at this time aside from mild lightheadedness. Denies chest pain, abdominal or back pain, change in phonation or other concerns. BP stable, tachycardia and lt headedness improved with fluid bolus. I do not feel further imaging is indicated at this time. Patient was given pantoprazole 40mg IV push.CBC notable for leukocytosis 17 K, hemoglobin stable at 15.2. Comprehensive metabolic panel unremarkable. Lipase within normal limits. Chest x-ray was notable for incidental pulmonary nodule which was discussed with patient at bedside and he was agreeable with outpatient PCP follow-up regarding this. Patient was requesting discharge from ED when fluid bolus was near completion. Using shared-decision making, patient was agreeable with plan for discharge with omeprazole, sucralfate and close PCP f/u. Prior to the patient's final disposition, I reevaluated the patient and determined that they have been maintaining stable vital signs, were able to ambulate at their baseline without significant difficulty, and p.o. challenged successfully, and are in a stable condition appropriate for discharge with close outpatient PCP follow up. Strict return precautions were given, with patient informed of concerning signs and symptoms to monitor for, and to return to the nurys (more content not included)... Normal [facility] Lipase SerPl-cCncon 06-13-20 24 Lipase [Catalytic activity/Vol] 50 U/L Normal 16-61 [facility] Comment on above: Order Comment: Speci men Type: BLOOD SPECIMEN Ordering Facility: [facility] Address: [address] [id number] Performed By: #### 3 040-3, 08439-2 #### [facility] CLIA [id number] [address] [place] [id number] [facility] XR CHEST 1V FRONTALon 2023 XR CHEST 1V FRONTAL * * *Final Report* * * DATE OF EXAM: Jun 13 2024 1:43PM AKX [id number] - XR CHEST 1V FRONTAL / PROCEDURE REASON: Pneumonia/aspiration * * * * Physician Interpretation * * * * EXAMINATION: CHEST RADIOGRAPH (SINGLE VIEW AP OR PA) CLINICAL HISTORY: Pneumonia/aspiration cough. MQ: XC1_5 Comparison: None RESULT: Lines, tubes, and devices: None. Lungs and pleura: Possible pulmonary nodule within the right mid lung measuring 14 mm. No evidence of focal consolidation, significant pleural effusion, or pneumothorax. Cardiomediastinal silhouette: Normal cardiomediastinal silhouette. Other: No bony abnormalities. IMPRESSION: Possible pulmonary nodule within right mid lung measuring 14 mm there. Recommend follow-up evaluation with CT chest. No radiographic evidence of acute cardiopulmonary process. ACTIONABLE RESULT: FOLLOW-UP Acuity: Actionable Findings: Thoracic-Lung nodules Routing code: RI_1 Recommendation: CT Chest WO IVCON Time Frame: At the discretion of the clinical team. COMMUNICATION: Results will be communicated with the ordering provider via [facility] staff message or phone message by [facility] within 2 business days of report finalization. --END OF FINDING-- Truck Trailer Mechanic: PSCB Transcribe Date/Time: Jun 13 2024 1:56P Dictated by : NEHA LINARES MD This examination was interpreted and the report reviewed and electronically signed by: NEHA LINARES MD on Jun 13 2024 1:59PM EST [id number] N ACTIONABLE Invalid Interpretation Code [facility] Ribs Unil 2V No CXRon 2023 Ribs Unil 2V No CXR [facility] [address] [place] [address] Ribs Unil 2V No CXR MR#: [id number] Acct: [id number] Name: MANOLO GUZMAN Rep #: [id number] : 1985 M 39 From: Liu Sebastian MD PCP: MARY ALICE Brown Status: REG CLI Study: Ribs Unil 2V No CXR Date of Exam: 05/23/24 Exam# [id number] Ordering Dr: Paulino Barragan [id number] STUDY: X-RAY - UNILATERAL RIBS ( LEFT ) REASON FOR EXAM: Male, 39 years old. Rib pain. TECHNIQUE: 4 views of the left ribs. COMPARISON: None. FINDINGS: Normal visualized ribs without a demonstrated fracture. The visualized lung is clear and expanded. RAD/Ribs Unil 2V No CXR IMPRESSION: Normal x-ray examination of the left ribs. Electronically Signed: Liu Sebastian MD at 11:37 EDT Reading Location ID and State: [facility] / [place] , Service support , CC: MARY ALICE Zamora; SABINA Blair Truck Trailer Mechanic: Signed Normal [facility] Urgent Care Visit Reporton 0 05-23-2024 Urgent Care Visit Report [facility] [address], [address] [place] [address] OFFICE VISIT Date of Service: 05/23/24 MR#: [id number] Acct: [id number] Name: MANOLO GUZMAN Rep #: [id number] : 1985 Provider: SABINA Blair Age/Sex: 39/M Location: [facility] Status: Signed Intake Vital Signs 12/19/23 08:58 05/23/24 11:16 Height 5 ft 5 in 5 ft 5 in Weight: 150 lb BMI 25.0 BP 110/74 Blood Pressure Location Lt brachial Position Sitting Respiration 16 Pulse 67 Pulse Source Monitor Temp 98.7 F Temp Source Temporal Pulse Oximetry (%) 97 Oxygen Delivery Method room air Intake Visit Reasons: CONCERN RIBS ARE OUT OF PLACE Chief Complaint: CONCERNS FOR RIBS OUT OF PLACE Sample Tailor Required: No Accompanied by: Daughter Is patient in pain?: Yes Allergies No Known Allergies Allergy (Verified 05/23/24 11:17) Medications ???Medication ???Instructions ???Recorded ???Confirmed ???Type NK 05/23/24 05/23/24 History PFSH Medical History Wears glasses Alcohol use Restless legs Diverticulosis GERD (gastroesophageal reflux disease) Encounter for preventative adult health care examination Injury of groin Right inguinal pain History of kidney stones Surgical History S/P laparoscopic cholecystectomy Family History Brother Asthma Mother Breast cancer Skin cancer Social History Smoking Status: Current every day smoker tobacco type: e-cigarettes alcohol intake: current alcohol intake frequency: a few times a week Alcohol type: beer substance use type: does not use what type of physical activity do you participate in: other details: sports/ jui jitsu HPI HPI Chief Complaint: CONCERNS FOR RIBS OUT OF PLACE Details: MANOLO GUZMAN, is a 39 M who presents to the office today for concern for his wrist being out of place potentially. Patient states that he fell backwards while pulling a kayak hitting his left posterior rib area and has had pain to the lower left ribs and sternum since then. Patient states that he is concerned that his ribs may be out of place because he has had a persistent sternal discomfort. He notes no shortness of breath, difficulty breathing or other chest pain. No other associated symptoms or alleviating/aggravati ng factors. ROS Const Constitutional: No other (As above) Exam Const General: cooperative and healthy appearing Chest Chest palpation inspection: tenderness rib left posterior-axillary line involving the 10th rib and involving the 11th rib Resp Effort Inspection: normal respiratory effort Auscultation: Bilateral: Clear to Auscultation Cardio Rate: regular rate Rhythm: regular rhythm Skin General: no rashes or lesions noted Neuro General: patient alert Psych Appearance: grossly normal Mental Status: mental status grossly normal Coding Level of Care Code Off vis,est,level 4 Diagnoses Rib pain on left side R07.81 Contusion of rib on left side S20.212A Assessment and Plan Assessment and Plan (1) Rib pain on left side: Status: Acute (2) Contusion of rib on left side: Status: Acute Orders: Orders Ribs Unil 2V No CXR Today R07.81 - Pleurodynia Plan X-ray of the left ribs read and interpreted by myself find no acute osseous abnormality, awaiting radiology interpretation at time of patient discharge. Patient advised to follow-up with his PCP in 5 to 7 days or a chiropractor for further evaluation and treatment. Advised to use ibuprofen or Tylenol as needed for pain unless contraindicated. Patient verbalized understanding and agreement with all the above. 05/23/24 1153 Date Paulino Gonzalez Signature: Date (if applicable) CC: Normal [facility] Surgery Visit Reporton 01-01 Surgery Visit Report [facility] [address] [place] [address] [address] [place] [address] OFFICE VISIT Date of Service: 01/01/24 MR#: [id number] Acct: [id number] Name: MANOLO GUZMAN Rep #: [id number] : 1985 Provider: KAMILA campbell Age/Sex: 38/M Location: [facility] Status: Signed Intake Vital Signs 12/19/23 08:58 Height 5 ft 5 in Intake Visit Reasons: HERNIA 1-31 TC Chief Complaint: f/u lap meredith Sample Tailor Required: No Is patient in pain?: No Allergies No Known Allergies Allergy (Verified 01/01/24 13:19) Medications famotidine 10 mg tablet 10 mg PO DAILY PRN GERD 10/22/23 [History Confirmed 11/21/23] acetaminophen 325 mg tablet 650 mg (2 x 325 mg) PO Q4H PRN PRN Pain Or Fever #0 tabs 12/19/23 [Rx] Subjective Details: Patient is a 38 y/o M I am following s/p laparoscopic cholecystectomy with intraoperative cholangiogram by Dr. Pastrana on 12/19/23. Patient tolerated the procedure well. Pathology demonstrated chronic cholecystitis with cholelithiasis. Patient notes minimal incisional pain/discomfort. He denies nausea, vomiting, fever since surgery. He notes his appetite has returned to normal. He notes his bowel habits have returned to normal. He notes there is a possible stitch coming out. Objective Details: Abdomen- soft, slight tenderness at the incision sites. right upper quadrant incision with a small amount of suture material protruding through the skin. I offered to trim the suture, however the patient declined at this time. Incisions c/d/i. No erythema or infection noted. Coding Level of Care Code Global Post Op Diagnoses Chronic cholecystitis with calculus K80.10 [facility] Medical History (Updated 01/01/24 @ 14:19 by Roxanne MUHAMMAD PACareyC) Alcohol use Diverticulosis Encounter for preventative adult health care examination GERD (gastroesophageal reflux disease) History of kidney stones Injury of groin Restless legs Right inguinal pain Wears glasses Surgical History (Updated 01/01/24 @ 13:20 by Eva Hawley) S/P laparoscopic cholecystectomy Family History Brother Asthma Mother Breast cancer Skin cancer Social History Smoking Status: Current every day smoker tobacco type: e-cigarettes alcohol intake: current alcohol intake frequency: a few times a week Alcohol type: beer substance use type: does not use what type of physical activity do you participate in: other details: sports/ jui jitsu Assessment and Plan (No Qualifiers) Assessment and Plan (1) Chronic cholecystitis with calculus: Status: Chronic Plan: Discussed with the patient that if the suture protrudes more and he would like it trimmed, he is able to contact our office for further evaluation No lifting restrictions starting next week Follow-up as needed 01/01/24 1423 Date Roxanne MUHAMMAD PA-C Cosign Signature: Date (if applicable) CC: MARY ALICE Zamora Normal [facility] Cholangiogram/ O R,Initialon 12-19-2023 Cholangiogram/ O R,Initial [facility] [address] [place] [address] Cholangiogram/ O R,Initial MR#: [id number] Acct: [id number] Name: MANOLO GUZMAN Rep #: [id number] : 1985 M 38 From: Jonathan pratt MD PCP: MARY ALICE Brown Status: [facility] Study: Cholangiogram/ O R,Initial Date of Exam: 12/19 Exam# [id number] Ordering Dr: Anil Pastrana [id number] STUDY: INTRAOPERATIVE CHOLANGIOGRAM. REASON FOR EXAM: Male, 38 years old. Laparoscopic cholecystectomy. FLUOROSCOPY TIME (if supplied): ( 7 seconds ) minutes/seconds. 1.98 mGy TECHNIQUE: An intraoperative cholangiogram was performed by the surgeon. Imaging was supplied. COMPARISON: None. FINDINGS: The intra and extrahepatic biliary ducts are unremarkable. Free flow of contrast is seen entering the duodenum. RAD/Cholangiogram/ O R,Initial IMPRESSION: Unremarkable intraoperative cholangiogram. Electronically Signed: Jonathan Alaniz MD at 13:03 EST , CC: MARY ALICE Zamora; Dr. Anil Pastrana MD Truck Trailer Mechanic: Signed Normal [facility] Discharge Instructionon 11-21 Discharge Instruction [facility] Medical Records Department [address] [place] [address] Instructions for Home/Discharge Instructions 12/19/23 1031 MR#: [id number] Acct: [id number] Name: MANOLO GUZMAN Rep #: [id number] : 1985 38 From: Anil Pastrana MD PCP: MARY ALICE Brown Status:[facility] Discharge Instructions Procedure Gallbladder Diet Discharge Diet: Light diet - advance as tolerated Activity Discharge Activity: May Not Drive (for 2-3 days or while taking narcotic pain medications.) and - (Do not drive, work heavy equipment or sign legal documents for 24 hours.) May shower in (days): 1 Lifting Restrictions: 20 lbs for 2 weeks Additional Activity Instructions:: Pain medication may cause nausea. You should typically eat light foods as you take your pain medications. Pain medication may also cause constipation. If this is a problem for you, please discuss with your doctor. Dressing / Incision Call your doctor if your incision/area has: Continuous Slow Oozing, Sudden Increased Bleeding, Increased Pain/ Swelling, Increased Redness and Foul Smelling Discharge Call your doctor if you observe: Fever of 101 or Higher Suture Line Care: Avoid Pulling/Pushing and Avoid Pinching/Bending Remove Dressing in: 2 days (Remove clear bandages in 2 days, remove Steri-Strips in 7 to 10 days.) Additional Dressing/Incision Instructions:: Leave operative bandaids on for 2 days. Follow Up Care Please Follow Up With: Anil Pastrana MD When: Please call to schedule 2 week follow up appointment. [phone] Test Results: Test results from this visit will be discussed in further detail at your follow-up appointment, if applicable. Discharge Plan Admission Attending Provider: Anil Pastrana Primary Care Provider: Jeronimo Zamora [facility] Discharge Orders/Prescriptions Prescriptions: New acetaminophen 325 mg Tablet 650 mg PO Q4H PRN PRN (Reason: Pain Or Fever) Qty: 0 0RF oxycodone 5 mg Tablet 5 - 10 mg PO Q4H PRN PRN (Reason: Pain Score 4-10/10) 5 Days Qty: 20 0RF Discontinued hydrocodone-acetamino phen [hydrocodone-acetamin ophen] 5-325 mg tablet 1 tab PO Q6H PRN PRN (Reason: Pain) 3 Days Qty: 10 0RF No Action famotidine 10 mg tablet 10 mg PO DAILY PRN (Reason: GERD) Referrals / Follow Up: Jeronimo Zamora [facility], COPRA PROCESSOR-C [Primary Care Provider] - Disposition Disposition (needs filled in before D/C Order can be placed): Home, Self Care 12/19/23 1034 Anil Pastrana MD CC: COPRA PROCESSOR-C Jeronimo Zamora Signed Normal [facility] Operative Reporton 4 Operative Report [facility] Medical Records Department [address] [place] [address] Operative Report 12/19/23 1030 MR#: [id number] Acct: [id number] Name: MANOLO GUZMAN Rep #: [id number] : 1985 38 From: Anil Pastrana MD PCP: MARY ALICE Brown Status:[facility] Location: [place] [address] Report of Operation Date of Procedure: 12/19/23 Pre-Operative Diagnosis: Chronic cholecystitis and cholelithiasis Post-Operative Diagnosis: Same Surgery/Procedure Performed:: Laparoscopic cholecystectomy with cholangiograms Type of Anesthesia: General/Regional Specimen's removed: Gallbladder Estimated Blood Loss (mL): 5 Description of Procedure: After obtaining informed consent patient was brought back to the operating room. General anesthesia was induced. The abdomen was prepped and draped in usual sterile fashion. A small midline incision was made superior to the umbilicus and deepened to the level of fascia. The fascia was elevated and incised. Next the peritoneum was elevated and incised in the same fashion. Finger sweep was performed and the Bradshaw trocar was placed into the abdomen. The balloon was inflated. The abdomen was inflated to 15 mmHg. Next a camera was introduced into the abdomen and the abdomen was inspected. Next under direct visualization three 5-mm ports were placed one subxiphoid and 2 subcostal. Next the gallbladder was elevated and retracted toward the right shoulder. The peritoneum was stripped from the gallbladder. The infundibulum was located and retracted laterally. Next the triangle of Calot was dissected and the cystic duct and cystic artery were identified. Cholangiograms were performed. The Martinez clamp was used to clamp across the infundibulum but I was unable to access the gallbladder. Next a small harshal was made in the right upper quadrant and the Ranfac catheter was placed into the abdomen. A clip was placed on the proximal cystic duct and a small harshal was placed in the cystic duct and the Ranfac catheter was placed into the duct and a clip was placed over it. Under fluoroscopy contrast was instilled into the gallbladder and the common duct, cystic duct as well as proximal hepatic ducts were identified. There was good filling of the duodenum. There were no filling defects noted in the common bile duct. The clamp was removed as well as the needle and the infundibulum was grasped once more. Three hemolock clips were placed across the cystic duct. The cystic duct was then divided leaving 2 clips on the stump. The cystic artery was clipped and divided in the same fashion. The hook cautery was then used to take the gallbladder off of the gallbladder bed. Hemostasis was obtained. Gallbladder fossa was irrigated and no active bleeding or bile leakage was noted. Next the camera was introduced in the subxiphoid port. An Endopouch bag was placed through the umbilical port and the gallbladder was placed into it. The gallbladder was then removed through the umbilical incision. The camera was then reinserted through the umbilical port. The gallbladder fossa was inspected once more and noted to be hemostatic with no leaking bile. The abdomen was suctioned dry. The 5 mm ports were removed under direct visualization. The umbilical port was then removed and the air was removed from the abdomen. Next using an 0 Vicryl suture the umbilical fascia was closed in a [id number] fashion. The umbilical port site was irrigated local anesthetic was administered to all the incisions. All the incisions were closed with interrupted subcuticular 4-0 Monocryl sutures followed by Steri-Strips and dressings. The patient was awoken and taken to PACU in stable condition. Admit VTE Documentation VTE Mechan Device Prophylaxis: SCD's 12/19/23 1031 Cosigner Signature (if applicable): CC: MARY ALICE Zamora; Dr. Anil Pastrana MD Signed Normal [facility] Surgery Specimen Level IIIon 12-19-2023 Surgery Specimen Level III Patient Age/Sex Location Account Attending Physician MANOLO GUZMAN 38/M [facility] [id number] Dr. Anil Pastrana MD Specimen: [id number] Received: 12/19/23-1219 Status: JONI Mena Num: [id number] Spec Type: GALLBLADDE Subm Dr: Dr. Anil Pastrana MD HEADER OPERATION: Laparoscopic cholecystectomy with IOC PRE-OP DIAGNOSIS: Gallstones TISSUE SUBMITTED: Gallbladder -------- MICROSCOPIC DIAGNOSIS Gallbladder, cholecystectomy: Chronic cholecystitis and cholelithiasis. SJ:royal 12/20/2023 MICROSCOPIC DESCRIPTION Slides are reviewed. GROSS DESCRIPTION Received is one container labeled with the patient's name and designated gallbladder. The specimen consists of a gallbladder measuring 8.0 cm in length and up to 3.0 cm in diameter. The external surface is pink-phillip, smooth and glistening for the most part. Focally it is granular, hemorrhagic and contains cautery artifact. The gallbladder contains green-yellow mucoid bile and three yellow, mulberry stones measuring in aggregate 2.0 x 1.5 x 1.0 cm and 0.6 to 1.0 cm in greatest dimension. The mucosa is bile-stained and without any mass lesions. The gallbladder wall measures up to 0.2 cm in thickness. Server Developer sections from the gallbladder and the cystic duct are submitted in one cassette. / BRY:royal 12/19/2023 TC:3 CPT: 36069 -------- Patient Age/Sex Location Account Attending Physician -------- MANOLO GUZMAN 38/M [facility] [id number] Dr. Anil Pastrana MD -------- Signed (signature on file) Dr. Shakeel Arguelles MD 12/20/23 1231 -------- Normal [facility] Comment on above: Performed By: #### P SUIII ####[facility] [address] [place], [place], [id number] Absolute lymphocyte countOrd ered By: Burt Celaya on 12-10-2023 Lymphocytes Auto (Unsp spec) [#/Vol] 2.96 10*3/uL 0.83-4.51 [facility] Automated blood erythrocyte count (number/volume)Ordered By: Burt Celaya on 12-10-2023 RBC (Bld) [#/Vol] 4.77 10*6/uL Normal 4.6-6.2 [facility] Comment on above: Performed By: #### L 500.4050, L501.2450, L100.0100 #### [facility] [address] [place], [address] Automated blood hematocrit ( percentage)Ordered By: Burt Celaya on 12-10-2023 Hematocrit (Bld) [Volume fraction] 43.4 % Normal 40-54 [facility] Comment on above: Performed By: #### L 500.4050, L501.2450, L100.0100 #### [facility] [address] [place], [address] Automated lymphocyte count a s percentage of total leukocytesOrdered By: Burt Celaya on 12-10-2023 Lymphocytes/100 WBC Auto (Unsp spec) 40.5 % 19-41 [facility] Basophil percentageOrdered B y: Burt Celaya on 12-10-2023 Bilirubin [Mass/Vol] 0.30 mg/dL Normal 0.20-1.00 [facility] Comment on above: For patients on eltr ombopag therapy, use of Dimension [place] TBIL is not recommended. Result Comment: For patients on eltrombopag therapy, use of Dimension [place] TBIL is not recommended. Performed By: #### L 500.4050, L501.2450, L100.0100 #### [facility] [address] [place], [address] Chloride [Moles/Vol] 107 mmol/L Normal 98-107 [facility] Comment on above: Performed By: #### L 500.4050, L501.2450, L100.0100 #### [facility] [address] [place], [address] Glucose [Mass/Vol] 93 mg/dL Normal 74-106 [facility] Comment on above: Performed By: #### L 500.4050, L501.2450, L100.0100 #### [facility] [address] [place], [address] Potassium [Moles/Vol] 4.3 mmol/L Normal 3.5-5.1 [facility] Comment on above: Slight Hemolysis, Re sult may be falsely increased. Result Comment: Slig ht Hemolysis, Result may be falsely increased. Performed By: #### L 500.4050, L501.2450, L100.0100 #### [facility] [address] [place], [address] Sodium [Moles/Vol] 140 mmol/L Normal 136-145 [facility] Comment on above: Performed By: #### L 500.4050, L501.2450, L100.0100 #### [facility] [address] [place], [address] Basophils/100 WBC (Bld) 1.0 % Normal 0-1 [facility] Comment on above: Performed By: #### L 500.4050, L501.2450, L100.0100 #### [facility] [address] [place], [address] Eosinophils/100 WBC (Bld) 3.1 % Normal 0-5 [facility] Comment on above: Performed By: #### L 500.4050, L501.2450, L100.0100 #### [facility] [address] [place], [address] Hemoglobin (Bld) [Mass/Vol] 14.4 g/dL Normal 13.0-16.5 [facility] Comment on above: Performed By: #### L 500.4050, L501.2450, L100.0100 #### [facility] [address] [place], [address] Monocytes/100 WBC (Bld) 10.4 % High 0-10 [facility] Comment on above: Performed By: #### L 500.4050, L501.2450, L100.0100 #### [facility] [address] [place], [address] Neutrophils/100 WBC (Bld) 44.7 % Low 47-70 [facility] Comment on above: Performed By: #### L 500.4050, L501.2450, L100.0100 #### [facility] [address] [place], [address] WBC (Bld) [#/Vol] 7.3 10*3/uL Normal 4.4-11.0 [facility] Comment on above: Performed By: #### L 500.4050, L501.2450, L100.0100 #### [facility] [address] [place], [address] Neutrophils (Bld) [#/Vol] 3.3 10*3/uL 2.0-7.7 [facility] Protein [Mass/Vol] 7.2 g/dL 6.4-8.2 [facility] CBC W/Diff, Automatedon 11-20 Absolute Lymph 2.96 X10 3/uL Normal 0.83-4.51 [facility] Comment on above: Performed By: #### L 500.4050, L501.2450, L100.0100 #### [facility] [address] [place], [address] Absolute Neut 3.3 X10 3/uL Normal 2.0-7.7 [facility] Comment on above: Performed By: #### L 500.4050, L501.2450, L100.0100 #### [facility] [address] [place], [address] IG% 0.300 Normal 0.0-0.9 [facility] Comment on above: Result Comment: IG% - Immature Granulocytes (promyelocytes, myelocytes and metamyelocytes) > 1% indicates that a LEFT SHIFT is Present. Performed By: #### L 500.4050, L501.2450, L100.0100 #### [facility] [address] [place], [address] Lymphocytes/100 WBC (Bld) 40.5 % Normal 19-41 [facility] Comment on above: Performed By: #### L 500.4050, L501.2450, L100.0100 #### [facility] [address] [place], [address] Nucleated RBC (Bld) [#/Vol] 0 10*3/uL Normal 0-5 [facility] Comment on above: Performed By: #### L 500.4050, L501.2450, L100.0100 #### [facility] [address] [place], [address] RDW SD 42.1 fl Normal 35.1-43.9 [facility] Comment on above: Performed By: #### L 500.4050, L501.2450, L100.0100 #### [facility] [address] [place], [address] CBC W/Diff, AutomatedOrdered By: Burt Celaya on 12-10-2023 MCH (RBC) [Entitic mass] 30.2 pg Normal 27.0-32.0 [facility] Comment on above: Performed By: #### L 500.4050, L501.2450, L100.0100 #### [facility] [address] [place], [address] MCHC (RBC) [Mass/Vol] 33.2 g/dL Normal 32-36 [facility] Comment on above: Performed By: #### L 500.4050, L501.2450, L100.0100 #### [facility] [address] [place], [address] Platelets (Bld) [#/Vol] 308 10*3/uL Normal 150-450 [facility] Comment on above: Performed By: #### L 500.4050, L501.2450, L100.0100 #### [facility] [address] [place], [address] Comprehensive Metabolic Prof ilon 12-10-2023 Albumin [Mass/Vol] 3.9 g/dL Normal 3.2-5.0 [facility] Comment on above: Performed By: #### L 500.4050, L501.2450, L100.0100 #### [facility] [address] [place], [address] ALK P 72 U/L Normal 45-117 [facility] Comment on above: Performed By: #### L 500.4050, L501.2450, L100.0100 #### [facility] [address] [place], [address] AST [Catalytic activity/Vol] 26 U/L Normal 15-37 [facility] Comment on above: Result Comment: Slig ht Hemolysis, Result may be falsely increased. Performed By: #### L 500.4050, L501.2450, L100.0100 #### [facility] [address] [place], [address] BUN/CRE 14.5 RATIO Normal 10-20 [facility] Comment on above: Performed By: #### L 500.4050, L501.2450, L100.0100 #### [facility] [address] [place], [address] CA,Total 9.2 mg/dL Normal 8.5-10.1 [facility] Comment on above: Performed By: #### L 500.4050, L501.2450, L100.0100 #### [facility] [address] [place], [address] ECRCL 98.70 ml/min Normal [facility] Comment on above: Performed By: #### L 500.4050, L501.2450, L100.0100 #### [facility] [address] [place], [address] EST GFR - AA 123 mL/min Normal >60 [facility] Comment on above: Result Comment: Afri can Iraqi GFR Calc Performed By: #### L 500.4050, L501.2450, L100.0100 #### [facility] [address] [place], [address] GAP 3 Low 5-15 [facility] Comment on above: Performed By: #### L 500.4050, L501.2450, L100.0100 #### [facility] [address] [place], [address] GFR/1.73 sq M.predicted among non-blacks MDRD (S/P/Bld) [Vol rate/Area] 101 mL/min/{1.73_m2} Normal >60 [facility] Comment on above: Result Comment: Non- GFR Calc Performed By: #### L 500.4050, L501.2450, L100.0100 #### [facility] [address] [place], [address] T PROT 7.2 g/dL Normal 6.4-8.2 [facility] Comment on above: Performed By: #### L 500.4050, L501.2450, L100.0100 #### [facility] [address] [place], [address] Comprehensive Metabolic Prof ilOrdered By: Burt Celaya on 12-10-2023 Albumin/Globulin [Mass ratio] 1.2 {ratio} Normal 0.9-2.4 [facility] Comment on above: Performed By: #### L 500.4050, L501.2450, L100.0100 #### [facility] [address] [place] [place], [address] ALT [Catalytic activity/Vol] 28 U/L Normal 16-61 [facility] Comment on above: Performed By: #### L 500.4050, L501.2450, L100.0100 #### [facility] [address] [place], [address] CO2 [Moles/Vol] 30.0 mmol/L Normal 21.0-32.0 [facility] Comment on above: Performed By: #### L 500.4050, L501.2450, L100.0100 #### [facility] [address] [place], [address] Globulin (S) [Mass/Vol] 3.3 g/dL Normal 2.2-4.2 [facility] Comment on above: Performed By: #### L 500.4050, L501.2450, L100.0100 #### [facility] [address] [place], [address] Determination of erythrocyte mean corpuscular volume (MCV)Ordered By: Burt Celaya on 12-10-2023 MCV (RBC) [Entitic vol] 91.0 fL Normal 80-94 [facility] Comment on above: Performed By: #### L 500.4050, L501.2450, L100.0100 #### [facility] [address] [place], [address] Emergency Department Summary on 12-10-2023 Emergency Department Summary [facility] Medical Records Department [address] [place] [address] Emergency Department Summary 12/10/23 MR#: [id number] Acct: [id number] Name: MANOLO GUZMAN Rep #: [id number] : 1985 38 From: Burt Celaya MD PCP: MARY ALICE Brown Status:REG ER Location: ED HPI HPI - GI History of Present Illness Chief Complaint: Abd Pain Informant: patient Narrative Narrative: Patient presents with my gallbladder again. This patient has been having intermittent right upper quadrant pain for several months. He has been seen and evaluated. He is known to have gallstones. He was going to have his gallbladder out about 4 days ago or 5 days ago. But his surgeon was ill and therefore it was delayed. He is now scheduled for 19 December. He states he ate late yesterday evening. He ate about 930 which was about 6 or 7 hours ago. He had garlic bread and cheese ravioli. He has been having pain for about 3 hours. He states he just cannot get comfortable. He is not really nauseated with it. No fevers or chills. The pain is in right upper quadrant and radiates toward his back. That is typically what it has done. [facility] Medical History Alcohol use Diverticulosis Encounter for preventative adult health care examination GERD (gastroesophageal reflux disease) History of kidney stones Injury of groin Restless legs Right inguinal pain Wears glasses Home Medications famotidine 10 mg tablet 10 mg PO DAILY PRN GERD 10/22/23 [History Last Taken Unknown] hydrocodone-acetamino phen 5-325mg 5mg-325mg 1 tab PO Q6H PRN PRN Pain 3 days #10 TABLETS 12/10/23 [Rx Last Taken Unknown] Allergy/AdvReac Type Severity Reaction Status Date / Time No Known Allergies Allergy Verified 12/10/23 04:04 Family History Brother Asthma Mother Breast cancer Skin cancer Social History Smoking Status: Current every day smoker tobacco type: e-cigarettes alcohol intake: current alcohol intake frequency: a few times a week Alcohol type: beer substance use type: does not use what type of physical activity do you participate in: other details: sports/ jui jitsu ROS ROS ED ROS Narrative A complete review of systems was performed and is negative except as documented in the history of present illness. Some specific details below. Constitutional: No recent fevers or chills. EYE: No color change. ENT: No difficulty swallowing. No swelling. No pain. Not having GERD but he is on meds for that. CV: No chest pain or palpitations. Respiratory: No dyspnea. No hemoptysis. No difficulty taking breaths. GI: Please see history of present illness. : No frequency dysuria or hematuria. Musculoskeletal: No recent trauma. No pains. Skin: No rash. Nondiaphoretic. Neuro: No weakness or numbness. Endocrine: No polyuria or polydipsia. EXAM Physical Exam Narrative Exam Narrative: CONSTITUTIONAL: Patient is nontoxic in appearance. The patient looks comfortable. HEENT: No notable trauma. Mucous membranes moist. EYES: No conjunctival injection. No proptosis. CARDIOVASCULAR: Regular rate. Regular rhythm. No notable murmur. No JVD. RESPIRATORY: No respiratory distress. Breathing is unlabored. No wheezes. No rhonchi. No rales. No pain with a deep breath. GASTROINTESTINAL: Not distended. Bowel sounds are normal. Mild tenderness in the right upper quadrant. No rebound or guarding. Rest of abdomen is actually benign. There are tattoos but no rash. GENITOURINARY: No tenderness over the bladder. No CVA tenderness. MUSCULOSKELETAL: Atraumatic. No peripheral edema. No cord. No tenderness along the deep venous system. No asymmetry. NEUROLOGICAL: Patient is alert and appropriate. No focal deficit noted. SKIN: No noted rashes. No diaphoresis. PSYCHIATRIC: Patient is calm. Mood is appropriate. Const Vital Signs: 12/10/23 03:54 Temperature 97.5 F L Temperature Source Temporal Pulse Rate 78 Respiratory Rate 16 Blood Pressure 145/92 H Blood Pressure Mean 109 Pulse Ox 99 MDM MDM MDM Narrative Medical decision making narrative: Patient's CBC is normal. Patient's electrolytes are overall normal. Patient's liver function test are normal. Patient's lipase is mildly high but it is about the same level that it has been recently. Patient was rechecked. He states he feels like it is finally broken and the pain is gone away. He is not nauseated. His abdomen is not tender now. I think it is appropriate we get him home. I did do online prescribing report and he has no narcotics. I will write for just a small number so he has an option to take at home pending his surgery. We again discussed a (more content not included)... Normal [facility] Erythrocyte distribution wid th ratioOrdered By: Burt Celaya on 12-10-2023 Erythrocyte distribution width (RBC) [Ratio] 12.6 % Normal 11.6-14.6 [facility] Comment on above: Performed By: #### L 500.4050, L501.2450, L100.0100 #### [facility] [address] [place], [address] Erythrocyte distribution wid th standard deviationOrdered By: Burt Celaya on 12-10-2023 Erythrocyte distribution width (RBC) [Entitic vol] 42.1 fL 35.1-43.9 [facility] Immature granulocytes/100 WB C Auto (Bld)Ordered By: Burt Celaya on 12-10-2023 Immature granulocytes/100 WBC (Bld) 0.300 % 0.0-0.9 [facility] Comment on above: IG% - Immature Granu locytes (promyelocytes, myelocytes and metamyelocytes) > 1% indicates that a LEFT SHIFT is Present. Laboratory - Chemistry and C hemistry - challengeOrdered By: Burt Celaya on 12-10-2023 ALP [Catalytic activity/Vol] 72 U/L 45-117 [facility] Urea nitrogen/Creatinine [Mass ratio] 14.5 mg/mg 10-20 [facility] - Hematology and Cell countsOrdered By: Burt Celaya on 12-10-2023 Nucleated RBC/100 WBC (Bld) [Ratio] 0 % 0-5 [facility] LipaseOrdered By: Burt hooks on 12-10-2023 Lipase [Catalytic activity/Vol] 91 U/L High 13-75 [facility] Comment on above: Please note:LIPASE r evised reference range effective 23. New Lipase methodology. Expected to produce lower values than the previous assay method. NEW Reference Range: 13 - 75 U/L Result Comment: Seven beck note: LIPASE revised reference range effective 23. New Lipase methodology. Expected to produce lower values than the previous assay method. NEW Reference Range: 13 - 75 U/L Performed By: #### L 500.4050, L501.2450, L100.0100 #### [facility] [address] [place], [address] Mean platelet volume determi nationOrdered By: Burt Celaya on 12-10-2023 Platelet mean volume (Bld) [Entitic vol] 9.2 fL Normal 6.2-12.0 [facility] Comment on above: Performed By: #### L 500.4050, L501.2450, L100.0100 #### [facility] [address] [place], [address] No Panel InformationOrdered By: Burt Celaya on 12-10-2023 Estimated Creatinine Clearance Calc 98.70 ml/min [facility] Estimated GFR (MDRD) Amer 123 mL/min >60 [facility] Comment on above: GFR Calc Estimated GFR (MDRD) Non-Af Amer 101 mL/min >60 [facility] Comment on above: Non- GFR Calc Serum or plasma calcium ping urement (mass/volume)Ordered By: Burt Celaya on 12-10-2023 Calcium [Mass/Vol] 9.2 mg/dL 8.5-10.1 [facility] Serum or plasma creatinine m easurement (mass/volume)Ordered By: Burt Celaya on 12-10-2023 Creatinine [Mass/Vol] 0.90 mg/dL Normal 0.70-1.30 [facility] Comment on above: The validity of the calculated GFR & GFRAA in patients over 70 years has not been determined. Clinical correlation is essential. Result Comment: The validity of the calculated GFR GFRAA in patients over 70 years has not been determined. Clinical correlation is essential. Performed By: #### L 500.4050, L501.2450, L100.0100 #### [facility] [address] [place], [address] Serum or plasma urea nitroge n measurement (mass/volume)Ordered By: Burt Celaya on 12-10-2023 Urea nitrogen [Mass/Vol] 13 mg/dL Normal 7-18 [facility] Comment on above: Performed By: #### L 500.4050, L501.2450, L100.0100 #### [facility] [address] [place], [address] Thin prep Papanicolaou smear with manual screeningOrdered By: Burt Celaya on 12-10-2023 Thin prep Papanicolaou smear with manual screening 3.9 g/dL 3.2-5.0 [facility] Thin prep Papanicolaou smear with manual screening 26 U/L 15-37 [facility] Comment on above: Slight Hemolysis, Re sult may be falsely increased. Thin prep Papanicolaou smear with manual screening 3 5-15 [facility] Absolute lymphocyte countOrd ered By: Eze Holland on 10-23-2023 Lymphocytes Auto (Unsp spec) [#/Vol] 2.89 10*3/uL 0.83-4.51 [facility] Basic Metabolic Profile (BMP )on 10-23-2023 BUN/CRE 11.2 RATIO Normal 10-20 [facility] Comment on above: Performed By: #### L 500.2500, L501.2450, L500.3400, L100.0100 ####[facility] [address] [place], [address] CA,Total 8.8 mg/dL Normal 8.5-10.1 [facility] Comment on above: Performed By: #### L 500.2500, L501.2450, L500.3400, L100.0100 ####[facility] [address] [place], [address] Chloride [Moles/Vol] 106 mmol/L Normal 98-107 [facility] Comment on above: Performed By: #### L 500.2500, L501.2450, L500.3400, L100.0100 ####[facility] [address] [place], [address] CO2 [Moles/Vol] 29.0 mmol/L Normal 21.0-32.0 [facility] Comment on above: Performed By: #### L 500.2500, L501.2450, L500.3400, L100.0100 ####[facility] [address] [place], [address] Creatinine [Mass/Vol] 0.99 mg/dL Normal 0.70-1.30 [facility] Comment on above: Result Comment: The validity of the calculated GFR GFRAA in patients over 70 years has not been determined. Clinical correlation is essential. Performed By: #### L 500.2500, L501.2450, L500.3400, L100.0100 ####[facility] [address] [place], [address] ECRCL 89.73 ml/min Normal [facility] Comment on above: Performed By: #### L 500.2500, L501.2450, L500.3400, L100.0100 ####[facility] [address] [place], [address] EST GFR - AA 110 mL/min Normal >60 [facility] Comment on above: Result Comment: Afri can Iraqi GFR Calc Performed By: #### L 500.2500, L501.2450, L500.3400, L100.0100 ####[facility] [address] [place], [address] GAP 5 Normal 5-15 [facility] Comment on above: Performed By: #### L 500.2500, L501.2450, L500.3400, L100.0100 ####[facility] [address] [place], [address] GFR/1.73 sq M.predicted among non-blacks MDRD (S/P/Bld) [Vol rate/Area] 91 mL/min/{1.73_m2} Normal >60 [facility] Comment on above: Result Comment: Non- GFR Calc Performed By: #### L 500.2500, L501.2450, L500.3400, L100.0100 ####[facility] [address] [place], [address] Glucose [Mass/Vol] 112 mg/dL High 74-106 [facility] Comment on above: Result Comment: Fast ing Glucose result from 100 to 125 mg/dL suggests IMPAIRED HOMEOSTASIS per A.D.A. criteria. Performed By: #### L 500.2500, L501.2450, L500.3400, L100.0100 ####[facility] [address] [place], [address] Potassium [Moles/Vol] 4.3 mmol/L Normal 3.5-5.1 [facility] Comment on above: Performed By: #### L 500.2500, L501.2450, L500.3400, L100.0100 ####[facility] [address] [place], [address] Sodium [Moles/Vol] 140 mmol/L Normal 136-145 [facility] Comment on above: Performed By: #### L 500.2500, L501.2450, L500.3400, L100.0100 ####[facility] [address] [place], [address] Urea nitrogen [Mass/Vol] 11 mg/dL Normal 7-18 [facility] Comment on above: Performed By: #### L 500.2500, L501.2450, L500.3400, L100.0100 ####[facility] [address] [place], [address] Basophil percentageOrdered B y: Eze Holland on 10-23-2023 Basophils/100 WBC (Bld) 1.2 % 0-1 [facility] Bilirubin [Mass/Vol] 0.60 mg/dL 0.20-1.00 [facility] Comment on above: For patients on eltr ombopag therapy, use of Dimension [place] TBIL is not recommended. Chloride [Moles/Vol] 106 mmol/L 98-107 [facility] Eosinophils/100 WBC (Bld) 4.8 % 0-5 [facility] Glucose [Mass/Vol] 112 mg/dL 74-106 [facility] Comment on above: Fasting Glucose resu lt from 100 to 125 mg/dL suggests IMPAIRED HOMEOSTASIS per A.D.A. criteria. Neutrophils (Bld) [#/Vol] 3.6 10*3/uL 2.0-7.7 [facility] Neutrophils/100 WBC (Bld) 46.6 % 47-70 [facility] Potassium [Moles/Vol] 4.3 mmol/L 3.5-5.1 [facility] Protein [Mass/Vol] 7.1 g/dL 6.4-8.2 [facility] Sodium [Moles/Vol] 140 mmol/L 136-145 [facility] WBC (Bld) [#/Vol] 7.7 10*3/uL 4.4-11.0 [facility] Blood erythrocytes count (nu mber/volume)Ordered By: Eze Holland on 10-23-2023 RBC (Bld) [#/Vol] 4.86 10*6/uL 4.6-6.2 [facility] Blood hemoglobin measurement (mass/volume)Ordered By: Eze Holland on 10-23-2023 Hemoglobin (Bld) [Mass/Vol] 14.8 g/dL 13.0-16.5 [facility] Blood lymphocytes/100 leukoc ytesOrdered By: Eze Holland on 10-23-2023 Lymphocytes/100 WBC (Bld) 37.8 % 19-41 [facility] Blood monocytes/100 leukocyt esOrdered By: Eze Holland on 10-23-2023 Monocytes/100 WBC (Bld) 9.5 % 0-10 [facility] Blood platelet mean volumeOr dered By: Eze Holland on 10-23-2023 Platelet mean volume (Bld) [Entitic vol] 8.7 fL 6.2-12.0 [facility] CBC W/Diff, Automatedon Absolute Lymph 2.89 X10 3/uL Normal 0.83-4.51 [facility] Comment on above: Performed By: #### L 500.2500, L501.2450, L500.3400, L100.0100 ####[facility] [address] [place], [address] Absolute Neut 3.6 X10 3/uL Normal 2.0-7.7 [facility] Comment on above: Performed By: #### L 500.2500, L501.2450, L500.3400, L100.0100 ####[facility] [address] [place], [address] Basophils/100 WBC (Bld) 1.2 % High 0-1 [facility] Comment on above: Performed By: #### L 500.2500, L501.2450, L500.3400, L100.0100 ####[facility] [address] [place], [address] Eosinophils/100 WBC (Bld) 4.8 % Normal 0-5 [facility] Comment on above: Performed By: #### L 500.2500, L501.2450, L500.3400, L100.0100 ####[facility] [address] [place], [address] Erythrocyte distribution width (RBC) [Ratio] 12.9 % Normal 11.6-14.6 [facility] Comment on above: Performed By: #### L 500.2500, L501.2450, L500.3400, L100.0100 ####[facility] [address] [place], [address] Hematocrit (Bld) [Volume fraction] 44.5 % Normal 40-54 [facility] Comment on above: Performed By: #### L 500.2500, L501.2450, L500.3400, L100.0100 ####[facility] [address] [place], [address] Hemoglobin (Bld) [Mass/Vol] 14.8 g/dL Normal 13.0-16.5 [facility] Comment on above: Performed By: #### L 500.2500, L501.2450, L500.3400, L100.0100 ####[facility] [address] [place], [address] IG% 0.100 Normal 0.0-0.9 [facility] Comment on above: Result Comment: IG% - Immature Granulocytes (promyelocytes, myelocytes and metamyelocytes) > 1% indicates that a LEFT SHIFT is Present. Performed By: #### L 500.2500, L501.2450, L500.3400, L100.0100 ####[facility] [address] [place], [address] Lymphocytes/100 WBC (Bld) 37.8 % Normal 19-41 [facility] Comment on above: Performed By: #### L 500.2500, L501.2450, L500.3400, L100.0100 ####[facility] [address] [place], [address] MCH (RBC) [Entitic mass] 30.5 pg Normal 27.0-32.0 [facility] Comment on above: Performed By: #### L 500.2500, L501.2450, L500.3400, L100.0100 ####[facility] [address] [place], [address] MCHC (RBC) [Mass/Vol] 33.3 g/dL Normal 32-36 [facility] Comment on above: Performed By: #### L 500.2500, L501.2450, L500.3400, L100.0100 ####[facility] [address] [place], [address] MCV (RBC) [Entitic vol] 91.6 fL Normal 80-94 [facility] Comment on above: Performed By: #### L 500.2500, L501.2450, L500.3400, L100.0100 ####[facility] [address] [place], [address] Monocytes/100 WBC (Bld) 9.5 % Normal 0-10 [facility] Comment on above: Performed By: #### L 500.2500, L501.2450, L500.3400, L100.0100 ####[facility] [address] [place], [address] Neutrophils/100 WBC (Bld) 46.6 % Low 47-70 [facility] Comment on above: Performed By: #### L 500.2500, L501.2450, L500.3400, L100.0100 ####[facility] [address] [place], [address] Nucleated RBC (Bld) [#/Vol] 0 10*3/uL Normal 0-5 [facility] Comment on above: Performed By: #### L 500.2500, L501.2450, L500.3400, L100.0100 ####[facility] [address] [place], [address] Platelet mean volume (Bld) [Entitic vol] 8.7 fL Normal 6.2-12.0 [facility] Comment on above: Performed By: #### L 500.2500, L501.2450, L500.3400, L100.0100 ####[facility] [address] [place], [address] Platelets (Bld) [#/Vol] 304 10*3/uL Normal 150-450 [facility] Comment on above: Performed By: #### L 500.2500, L501.2450, L500.3400, L100.0100 ####[facility] [address] [place], [address] RBC (Bld) [#/Vol] 4.86 10*6/uL Normal 4.6-6.2 [facility] Comment on above: Performed By: #### L 500.2500, L501.2450, L500.3400, L100.0100 ####[facility] [address] [place], [address] RDW SD 43.6 fl Normal 35.1-43.9 [facility] Comment on above: Performed By: #### L 500.2500, L501.2450, L500.3400, L100.0100 ####[facility] [address] [place], [address] WBC (Bld) [#/Vol] 7.7 10*3/uL Normal 4.4-11.0 [facility] Comment on above: Performed By: #### L 500.2500, L501.2450, L500.3400, L100.0100 ####[facility] [address] [place], [address] Determination of erythrocyte mean corpuscular volume (MCV)Ordered By: Eze Holland on 10-23-2023 MCV (RBC) [Entitic vol] 91.6 fL 80-94 [facility] Direct bilirubinOrdered By: Eze Holland on 10-23-2023 Bilirubin.direct [Mass/Vol] 0.18 mg/dL 0.00-0.30 [facility] Emergency Department Summary on 10-23-2023 Emergency Department Summary [facility] Medical Records Department [address] [place] [address] Emergency Department Summary 10/23/23 MR#: [id number] Acct: [id number] Name: MANOLO GUZMAN Rep #: [id number] : 1985 38 From: Eze Gunn PCP: MARY ALICE Brown Status:REG ER Location: ED HPI HPI - GI History of Present Illness Chief Complaint: Abd Pain Informant: patient Narrative Narrative: Worsening right upper quadrant pain radiating to his back awaken him at 2:10 AM. On and off intermittent symptoms for last couple months would come randomly. Denies nausea or vomiting or diarrhea. Denies fever or chills. He has known cholelithiasis, states followed up with surgery yesterday as an outpatient. Recommended cholecystectomy, however he states he tried delaying the November due to personal issues with moving. He is on PAP acid. He tried taking a Tums with no relief. He ate a famous bowl at [facility] with gravy at 7 PM. Denies any allergies. He states with the pain going to his back similar to his gallstone pains. Prior similar symptoms: Yes PFSH [facility] Medical History Encounter for preventative adult health care examination GERD (gastroesophageal reflux disease) History of kidney stones Injury of groin Right inguinal pain Home Medications famotidine 10 mg tablet 10 mg PO DAILY 10/22/23 [History Last Taken Unknown] Allergy/AdvReac Type Severity Reaction Status Date / Time No Known Allergies Allergy Verified 10/23/23 03:06 Family History Brother Asthma Mother Breast cancer Skin cancer Social History Smoking Status: Current every day smoker tobacco type: e-cigarettes alcohol intake: current alcohol intake frequency: a few times a week Alcohol type: beer substance use type: does not use what type of physical activity do you participate in: other details: sports/ jui jiIdea[employer]meu ROS ROS ED Constitutional Constitutional ED: Denies chills, fever(s) or sweats Eyes Eyes: Denies change in vision ENT ENT ED: Denies dysphagia or sore throat Cardiovascular Cardiovascular: Denies chest pain, leg edema, palpitations or racing heartbeat Respiratory/Chest Respiratory/Chest: Denies cough, dyspnea or dyspnea on exertion Gastrointestinal Gastrointestinal: Reports abdominal pain; Denies diarrhea, nausea or vomiting Genitourinary Genitourinary ED: Denies dysuria, hematuria or urinary frequency Musculoskeletal Musculoskeletal: Denies back pain, extremity pain or neck pain Integumentary Denies rash or wounds Neurologic Neurologic: Denies headache(s), paresthesias or weakness EXAM Physical Exam Const Vital Signs: 10/23/23 03:03 Temperature 96.5 F L Temperature Source Temporal Pulse Rate 77 Respiratory Rate 18 Blood Pressure 163/113 H Blood Pressure Mean 129 Pulse Ox 100 Oxygen Delivery Method Room Air Positive well nourished and well developed General Appearance ED: well developed and NAD HEENT Reports moist mucous membranes normocephalic and atraumatic Eyes PERRL, EOMs intact bilaterally and conjunctivae normal General Eye ED: Yes normal appearance of both eyes Neck no lymphadenopathy and supple General: Negative for tenderness Chest Wall Chest: Negative for tenderness Resp normal respiratory effort and normal air movement Effort and Inspection: symmetric chest movement; Negative for respiratory distress Cardio regular rate, regular rhythm and no murmurs Peripheral Pulses: pulses 2+ throughout GI normal to inspection, nondistended, normoactive bowel sounds GI Narrative: Right upper quadrant tenderness, no guarding or rebound. Palpation: Negative for guarding or rebound tenderness present Back/Spine no CVA tenderness and no thoracic nor lumbar tenderness Extremity normal to inspection General Extremety ED: Negative for edema or tenderness General Extremity: Negative for edema Neuro oriented x3 and no sensory deficits noted Sensorium / Orientation: awake and alert Skin no rashes or lesions noted and no wounds MDM MDM MDM Narrative Medical decision making narrative: Interventions / MDM: Differential diagnosis: Gallstones, biliary colic Diagnosis considered but do not suspect: N/A My EKG interpretation: N/A Imaging independently reviewed and interpreted by myself: N/A External documents reviewed: Outpatient consult from surgery reviewed yesterday with recommended cholecystectomy. Test considered but not ordered:N/A ED course: Patient known gallstones with similar symptoms. He ate famous [place] Pipefish with gravy. Will check abdominal labs, morphine Zofran fluids started. 0410: Pain only mild improvement. He states more accurate w (more content not included)... Normal [facility] Hematocrit Auto (Bld) [Volum e fraction]Ordered By: Eze Holland on 10-23-2023 Hematocrit (Bld) [Volume fraction] 44.5 % 40-54 [facility] Laboratory - Chemistry and C hemistry - challengeOrdered By: Eze Holland on 10-23-2023 ALP [Catalytic activity/Vol] 67 U/L 45-117 [facility] ALT [Catalytic activity/Vol] 24 U/L 16-61 [facility] CO2 [Moles/Vol] 29.0 mmol/L 21.0-32.0 [facility] Globulin (S) [Mass/Vol] 3.2 g/dL 2.2-4.2 [facility] Lipase [Catalytic activity/Vol] 83 U/L 13-75 [facility] Comment on above: Please note:LIPASE r evised reference range effective 23. New Lipase methodology. Expected to produce lower values than the previous assay method. NEW Reference Range: 13 - 75 U/L Urea nitrogen/Creatinine [Mass ratio] 11.2 mg/mg 10-20 [facility] - Hematology and Cell countsOrdered By: Eze Holland on 10-23-2023 Erythrocyte distribution width (RBC) [Entitic vol] 43.6 fL 35.1-43.9 [facility] Erythrocyte distribution width (RBC) [Ratio] 12.9 % 11.6-14.6 [facility] Immature granulocytes/100 WBC (Bld) 0.100 % 0.0-0.9 [facility] Comment on above: IG% - Immature Granu locytes (promyelocytes, myelocytes and metamyelocytes) > 1% indicates that a LEFT SHIFT is Present. MCH (RBC) [Entitic mass] 30.5 pg 27.0-32.0 [facility] Nucleated RBC/100 WBC (Bld) [Ratio] 0 % 0-5 [facility] Lipaseon 10-23-2023 Lipase [Catalytic activity/Vol] 83 U/L High 13-75 [facility] Comment on above: Result Comment: Seven beck note: LIPASE revised reference range effective 23. New Lipase methodology. Expected to produce lower values than the previous assay method. NEW Reference Range: 13 - 75 U/L Performed By: #### L 500.2500, L501.2450, L500.3400, L100.0100 ####[facility] [address] [place], [address] Liver Profileon 10-23-2023 Albumin [Mass/Vol] 3.9 g/dL Normal 3.2-5.0 [facility] Comment on above: Performed By: #### L 500.2500, L501.2450, L500.3400, L100.0100 ####[facility] [address] [place], [address] ALK P 67 U/L Normal 45-117 [facility] Comment on above: Performed By: #### L 500.2500, L501.2450, L500.3400, L100.0100 ####[facility] [address] [place], [address] ALT [Catalytic activity/Vol] 24 U/L Normal 16-61 [facility] Comment on above: Performed By: #### L 500.2500, L501.2450, L500.3400, L100.0100 ####[facility] [address] [place], [address] AST [Catalytic activity/Vol] 16 U/L Normal 15-37 [facility] Comment on above: Performed By: #### L 500.2500, L501.2450, L500.3400, L100.0100 ####[facility] [address] [place], [address] Bilirubin [Mass/Vol] 0.60 mg/dL Normal 0.20-1.00 [facility] Comment on above: Result Comment: For patients on eltrombopag therapy, use of Dimension [place] TBIL is not recommended. Performed By: #### L 500.2500, L501.2450, L500.3400, L100.0100 ####[facility] [address] [place], [address] Bilirubin.direct [Mass/Vol] 0.18 mg/dL Normal 0.00-0.30 [facility] Comment on above: Performed By: #### L 500.2500, L501.2450, L500.3400, L100.0100 ####[facility] [address] [place], [address] Globulin (S) [Mass/Vol] 3.2 g/dL Normal 2.2-4.2 [facility] Comment on above: Performed By: #### L 500.2500, L501.2450, L500.3400, L100.0100 ####[facility] [address] [place], [address] T PROT 7.1 g/dL Normal 6.4-8.2 [facility] Comment on above: Performed By: #### L 500.2500, L501.2450, L500.3400, L100.0100 ####[facility] [address] [place], [address] MCHC Auto (RBC) [Mass/Vol]Or dered By: Eze Holland on 10-23-2023 MCHC (RBC) [Mass/Vol] 33.3 g/dL 32-36 [facility] No Panel InformationOrdered By: Eze Holland on 10-23-2023 Estimated Creatinine Clearance Calc 89.73 ml/min [facility] Estimated GFR (MDRD) Amer 110 mL/min >60 [facility] Comment on above: GFR Calc Estimated GFR (MDRD) Non-Af Amer 91 mL/min >60 [facility] Comment on above: Non- GFR Calc Platelets bldOrdered By: Cole Holland on 10-23-2023 Platelets (Bld) [#/Vol] 304 10*3/uL 150-450 [facility] Serum or plasma albumin ping urement (mass/volume)Ordered By: Eze Holland on 10-23-2023 Albumin [Mass/Vol] 3.9 g/dL 3.2-5.0 [facility] Serum or plasma calcium ping urement (mass/volume)Ordered By: Eze Holland on 10-23-2023 Calcium [Mass/Vol] 8.8 mg/dL 8.5-10.1 [facility] Serum or plasma creatinine m easurement (mass/volume)Ordered By: Eze Holland on 10-23-2023 Creatinine [Mass/Vol] 0.99 mg/dL 0.70-1.30 [facility] Comment on above: The validity of the calculated GFR & GFRAA in patients over 70 years has not been determined. Clinical correlation is essential. Serum or plasma urea nitroge n measurement (mass/volume)Ordered By: Eze Holland on 10-23-2023 Urea nitrogen [Mass/Vol] 11 mg/dL 7-18 [facility] Thin prep Papanicolaou smear with manual screeningOrdered By: Eze Holland on 10-23-2023 Thin prep Papanicolaou smear with manual screening 16 U/L 15-37 [facility] Thin prep Papanicolaou smear with manual screening 5 5-15 [facility] Surgery Visit Reporton 10-22 Surgery Visit Report [facility] [address] [place] [address] OFFICE VISIT Date of Service: 10/22/23 MR#: [id number] Acct: [id number] Name: MANOLO GUZMAN Rep #: [id number] : 1985 Provider: Dr. Anil franco MD Age/Sex: 38/M Location: [facility] Status: Signed Intake Vital Signs 09/17/23 01:10 10/22/23 14:30 Height 5 ft 5 in 5 ft 5 in Weight: 154 lb BMI 25.6 BP 122/85 H Blood Pressure Location Rt brachial Position Sitting Respiration 18 Pulse 84 Pulse Source Monitor Temp 98.2 F Temp Source Temporal Pulse Oximetry (%) 96 Oxygen Delivery Method room air Intake Visit Reasons: Gall Stones Chief Complaint: gall stones Sample Tailor Required: No Is patient in pain?: No Allergies No Known Allergies Allergy (Verified 10/22/23 14:31) Medications famotidine 10 mg tablet 10 mg PO DAILY 10/22/23 [History] [facility] Medical History (Updated 10/22/23 @ 14:29 by Mimi Huerat LPN) Encounter for preventative adult health care examination GERD (gastroesophageal reflux disease) History of kidney stones Injury of groin Right inguinal pain Family History Brother Asthma Mother Breast cancer Skin cancer Social History Smoking Status: Current every day smoker tobacco type: e-cigarettes alcohol intake: current alcohol intake frequency: a few times a week Alcohol type: beer substance use type: does not use what type of physical activity do you participate in: other details: sports/ jui jitsu HPI HPI HPI: Patient is a 38-year-old male with pain that is waking him from sleep. He says it happens occasionally and there is no correspondence with what he eats or what time he eats. It wakes him in the middle the night he has pain that radiates to the middle of his back and in the right upper quadrant and right flank. Patient denies any fevers or chills or nausea or vomiting this time. ROS Musc Musculoskeletal: Yes back problems Psych Psychiatric: Yes depression and anxiety Gastro Gastrointestinal: Yes abdominal pain, Yes acid reflux and Yes gallbladder problem Exam Const General: cooperative Orientation: alert and oriented x3 HENMT Head: normal to inspection Neck Neck: normal visual inspection and full ROM Chest Chest palpation inspection: normal inspection of the chest Resp Effort Inspection: normal respiratory effort Auscultation: clear to auscultation bilaterally Cardio Rate: regular rate Rhythm: regular rhythm GI Inspection: non-distended Palpation: soft and nontender Skin General: no rashes or lesions noted Neuro General: patient alert and patient oriented x3 Extrem General: full ROM Psych Appearance: grossly normal Mental Status: mental status grossly normal Assessment and Plan Assessment and Plan (1) Gall stones: Status: Acute Plan: Patient is having right upper quadrant pain radiating to the middle of the back that wakes him from sleep. He had an ultrasound in the emergency room that revealed he does have cholelithiasis with some large stones. I recommended laparoscopic cholecystectomy. I discussed the procedure in detail with the patient. I discussed the risks, benefits, and alternatives of the procedure. I discussed the risks including but not limited to bleeding, infection, injury to surrounding organs such as the liver, bile duct, bowels. I did discuss the possibility of having to convert to an open procedure as well as the possibility that if any injuries occurred this may necessitate further surgery at a tertiary care center. Anil Psatrana MD Pager: [facility] [address] [place] [address] [address] [place] [address] Office: Coding Level of Care Code Off vis,new,level 3 Diagnoses Gall stones K80.20 10/22/23 1607 Date [facility]: Date (if applicable) CC: COPRA PROCESSOR-C Jeronimo Zamora Normal [facility] MRI Abd WITH and W/O Contras ton 10-05-2023 MRI Abd WITH and W/O Contrast [facility] [address] [place] [address] MRI Abd WITH and W/O Contrast MR#: [id number] Acct: [id number] Name: MANOLO GUZMAN Rep #: [id number] : 1985 M 38 From: Joe Montemayor MD PCP: MARY ALICE Brown Status: REG CLI Study: MRI Abd WITH and W/O Contrast Date of Exam: Exam# [id number] Ordering Dr: Jeronimo Zamora [facility] COPRA PROCESSOR-C [id number] EXAM: MR ABDOMEN WITHOUT AND WITH INTRAVENOUS CONTRAST CLINICAL INDICATION: LIVER DISEASE TECHNIQUE: Multiplanar and multisequence MR images of the abdomen without and with intravenous contrast. CONTRAST: IV Yes YES COMPARISON: No relevant prior studies available. FINDINGS: LOWER THORAX: Small sliding hiatal hernia. No pleural effusion. LIVER: 3.6 cm lesion within hepatic segment 3 with signal characteristics and enhancement pattern most suggestive of hemangioma. Liver is otherwise unremarkable in appearance. GALLBLADDER AND BILE DUCTS: 3. Small stones are noted within the gallbladder largest one measuring 12 mm in diameter. No gallbladder distention or wall edema. PANCREAS: Normal. No focal cystic or solid mass. SPLEEN: Normal. Normal size without focal cystic or solid mass. ADRENALS: Normal. No nodules. KIDNEYS AND URETERS: Normal. Normal renal size and position. No hydronephrosis. INTRAPERITONEAL SPACE: Normal. No ascites or other fluid collection. No free air. VASCULATURE: Normal. Abdominal aorta is non-dilated. LYMPH NODES: No enlarged lymph nodes. MRI/MRI Abd WITH and W/O Contrast IMPRESSION: 1. 3.6 cm hemangioma within hepatic segment 3. 2. Cholelithiasis. 3. Small sliding-type hiatal hernia. Electronically Signed: Joe Montemayor MD at 12:21 EST , CC: MARY ALICE Zamora Truck Trailer Mechanic: Signed Normal [facility] Abdomen Completeon 3 Abdomen Complete [facility] [address] [place] [address] Abdomen Complete MR#: [id number] Acct: [id number] Name: MANOLO GUZMAN Rep #: [id number] : 1985 M 38 From: Keshawn blandon MD PCP: MARY ALICE Brown Status: REG CLI Study: Abdomen Complete Date of Exam: 09/27/23 Exam# [id number] Ordering Dr: Jeronimo Zamora [facility] COPRA PROCESSOR-C [id number] INDICATION: ABD PAIN EXAMINATION: US Abdomen Complete TECHNIQUE: Galarza-scale and color Doppler imaging was performed of the abdomen. COMPARISON: None. Findings: The liver is diffusely homogenous with overall slightly increased echogenicity. There is no evidence of contour nodularity. There is a hyperechoic 2.4 cm mass in the left hepatic lobe.. The main portal vein is normal in size and patent demonstrating hepatopetal flow. The gallbladder is remarkable for mobile, layering stones, however is without evidence of wall thickening or pericholecystic fluid. Sonographic Valenzuela''s tenderness is not appreciated. There is no evidence of intrahepatic biliary ductal dilatation. The CBD is nondilated measuring 3 mm at the level of the aiden hepatis. The visualized portions of the pancreas are unremarkable without evidence of focal or diffuse enlargement. Specifically, the tail is obscured by overlying bowel gas. The spleen is normal in size. Right and left kidneys measure 10.9 cm and 10.8 cm in length respectively. The kidneys are normal in echogenicity. No focal renal lesion is identified. There is no evidence of hydronephrosis bilaterally. There is a nonobstructing 3 mm stone in the right lower pole. The abdominal aorta is normal in caliber where seen. The intrahepatic inferior vena cava is patent. There is no free intraperitoneal fluid identified. US/Abdomen Complete IMPRESSION: Slightly hyperechoic liver without evidence of contour nodularity. Findings are nonspecific and may be consistent with sequelae of fatty infiltration or other forms of diffuse liver disease. 2.4 cm hyperechoic mass in the left hepatic lobe is indeterminate. Recommend multiphase CT or MR abdomen with and without contrast for further evaluation. Cholelithiasis without evidence of acute cholecystitis. Nonobstructive nephrolithiasis on the right. Electronically Signed: Keshawn Quinn MD at 21:41 EST , CC: MARY ALICE Zamora Truck Trailer Mechanic: Signed Normal [facility] Absolute lymphocyte countOrd ered By: Polo Han on 09-17-2023 Lymphocytes Auto (Unsp spec) [#/Vol] 2.93 10*3/uL 0.83-4.51 [facility] Basophil percentageOrdered B y: Polo Han on 09-17-2023 Basophils/100 WBC (Bld) 1.0 % 0-1 [facility] Bilirubin [Mass/Vol] 0.30 mg/dL 0.20-1.00 [facility] Comment on above: For patients on eltr ombopag therapy, use of Dimension [place] TBIL is not recommended. Chloride [Moles/Vol] 105 mmol/L 98-107 [facility] Eosinophils/100 WBC (Bld) 3.8 % 0-5 [facility] Glucose [Mass/Vol] 103 mg/dL 74-106 [facility] Comment on above: Fasting Glucose resu lt from 100 to 125 mg/dL suggests IMPAIRED HOMEOSTASIS per A.D.A. criteria. Neutrophils (Bld) [#/Vol] 3.1 10*3/uL 2.0-7.7 [facility] Neutrophils/100 WBC (Bld) 44.0 % 47-70 [facility] Potassium [Moles/Vol] 3.6 mmol/L 3.5-5.1 [facility] Protein [Mass/Vol] 7.5 g/dL 6.4-8.2 [facility] Sodium [Moles/Vol] 140 mmol/L 136-145 [facility] WBC (Bld) [#/Vol] 7.1 10*3/uL 4.4-11.0 [facility] Blood erythrocytes count (nu mber/volume)Ordered By: Polo Han on 09-17-2023 RBC (Bld) [#/Vol] 4.98 10*6/uL 4.6-6.2 [facility] Blood hemoglobin measurement (mass/volume)Ordered By: Polo Han on 09-17-2023 Hemoglobin (Bld) [Mass/Vol] 15.0 g/dL 13.0-16.5 [facility] Blood lymphocytes/100 leukoc ytesOrdered By: Polo Han on 09-17-2023 Lymphocytes/100 WBC (Bld) 41.1 % 19-41 [facility] Blood monocytes/100 leukocyt esOrdered By: Polo Han on 09-17-2023 Monocytes/100 WBC (Bld) 9.8 % 0-10 [facility] Blood platelet mean volumeOr dered By: Polo Han on 09-17-2023 Platelet mean volume (Bld) [Entitic vol] 9.4 fL 6.2-12.0 [facility] CBC W/Diff, Automatedon 08-21 Absolute Lymph 2.93 X10 3/uL Normal 0.83-4.51 [facility] Comment on above: Performed By: #### L 500.4050, L501.2450, L100.0100 ####[facility] [address] [place], [address] Absolute Neut 3.1 X10 3/uL Normal 2.0-7.7 [facility] Comment on above: Performed By: #### L 500.4050, L501.2450, L100.0100 ####[facility] [address] [place], [address] Basophils/100 WBC (Bld) 1.0 % Normal 0-1 [facility] Comment on above: Performed By: #### L 500.4050, L501.2450, L100.0100 ####[facility] [address] [place], [address] Eosinophils/100 WBC (Bld) 3.8 % Normal 0-5 [facility] Comment on above: Performed By: #### L 500.4050, L501.2450, L100.0100 ####[facility] [address] [place], [address] Erythrocyte distribution width (RBC) [Ratio] 12.7 % Normal 11.6-14.6 [facility] Comment on above: Performed By: #### L 500.4050, L501.2450, L100.0100 ####[facility] [address] [place], [address] Hematocrit (Bld) [Volume fraction] 45.5 % Normal 40-54 [facility] Comment on above: Performed By: #### L 500.4050, L501.2450, L100.0100 ####[facility] [address] [place], [address] Hemoglobin (Bld) [Mass/Vol] 15.0 g/dL Normal 13.0-16.5 [facility] Comment on above: Performed By: #### L 500.4050, L501.2450, L100.0100 ####[facility] [address] [place], [address] IG% 0.300 Normal 0.0-0.9 [facility] Comment on above: Result Comment: IG% - Immature Granulocytes (promyelocytes, myelocytes and metamyelocytes) > 1% indicates that a LEFT SHIFT is Present. Performed By: #### L 500.4050, L501.2450, L100.0100 ####[facility] [address] [place], [address] Lymphocytes/100 WBC (Bld) 41.1 % High 19-41 [facility] Comment on above: Performed By: #### L 500.4050, L501.2450, L100.0100 ####[facility] [address] [place], [address] MCH (RBC) [Entitic mass] 30.1 pg Normal 27.0-32.0 [facility] Comment on above: Performed By: #### L 500.4050, L501.2450, L100.0100 ####[facility] [address] [place], [address] MCHC (RBC) [Mass/Vol] 33.0 g/dL Normal 32-36 [facility] Comment on above: Performed By: #### L 500.4050, L501.2450, L100.0100 ####[facility] [address] [place], [address] MCV (RBC) [Entitic vol] 91.4 fL Normal 80-94 [facility] Comment on above: Performed By: #### L 500.4050, L501.2450, L100.0100 ####[facility] [address] [place], [address] Monocytes/100 WBC (Bld) 9.8 % Normal 0-10 [facility] Comment on above: Performed By: #### L 500.4050, L501.2450, L100.0100 ####[facility] [address] [place], [address] Neutrophils/100 WBC (Bld) 44.0 % Low 47-70 [facility] Comment on above: Performed By: #### L 500.4050, L501.2450, L100.0100 ####[facility] [address] [place], [address] Nucleated RBC (Bld) [#/Vol] 0 10*3/uL Normal 0-5 [facility] Comment on above: Performed By: #### L 500.4050, L501.2450, L100.0100 ####[facility] [address] [place], [address] Platelet mean volume (Bld) [Entitic vol] 9.4 fL Normal 6.2-12.0 [facility] Comment on above: Performed By: #### L 500.4050, L501.2450, L100.0100 ####[facility] [address] [place], [address] Platelets (Bld) [#/Vol] 315 10*3/uL Normal 150-450 [facility] Comment on above: Performed By: #### L 500.4050, L501.2450, L100.0100 ####[facility] [address] [place], [address] RBC (Bld) [#/Vol] 4.98 10*6/uL Normal 4.6-6.2 [facility] Comment on above: Performed By: #### L 500.4050, L501.2450, L100.0100 ####[facility] [address] [place], [address] RDW SD 42.0 fl Normal 35.1-43.9 [facility] Comment on above: Performed By: #### L 500.4050, L501.2450, L100.0100 ####[facility] [address] [place], [address] WBC (Bld) [#/Vol] 7.1 10*3/uL Normal 4.4-11.0 [facility] Comment on above: Performed By: #### L 500.4050, L501.2450, L100.0100 ####[facility] [address] [place], [address] Comprehensive Metabolic Prof ilon 09-17-2023 Albumin [Mass/Vol] 4.2 g/dL Normal 3.2-5.0 [facility] Comment on above: Performed By: #### L 500.4050, L501.2450, L100.0100 ####[facility] [address] [place], [address] Albumin/Globulin [Mass ratio] 1.3 {ratio} Normal 0.9-2.4 [facility] Comment on above: Performed By: #### L 500.4050, L501.2450, L100.0100 ####[facility] [address] [place], [address] ALK P 70 U/L Normal 45-117 [facility] Comment on above: Performed By: #### L 500.4050, L501.2450, L100.0100 ####[facility] [address] [place], [address] ALT [Catalytic activity/Vol] 30 U/L Normal 16-61 [facility] Comment on above: Performed By: #### L 500.4050, L501.2450, L100.0100 ####[facility] [address] [place], [address] AST [Catalytic activity/Vol] 20 U/L Normal 15-37 [facility] Comment on above: Performed By: #### L 500.4050, L501.2450, L100.0100 ####[facility] [address] [place], [address] Bilirubin [Mass/Vol] 0.30 mg/dL Normal 0.20-1.00 [facility] Comment on above: Result Comment: For patients on eltrombopag therapy, use of Dimension [place] TBIL is not recommended. Performed By: #### L 500.4050, L501.2450, L100.0100 ####[facility] [address] [place], [address] BUN/CRE 11.8 RATIO Normal 10-20 [facility] Comment on above: Performed By: #### L 500.4050, L501.2450, L100.0100 ####[facility] [address] [place], [address] CA,Total 9.2 mg/dL Normal 8.5-10.1 [facility] Comment on above: Performed By: #### L 500.4050, L501.2450, L100.0100 ####[facility] [address] [place], [address] Chloride [Moles/Vol] 105 mmol/L Normal 98-107 [facility] Comment on above: Performed By: #### L 500.4050, L501.2450, L100.0100 ####[facility] [address] [place], [address] CO2 [Moles/Vol] 31.0 mmol/L Normal 21.0-32.0 [facility] Comment on above: Performed By: #### L 500.4050, L501.2450, L100.0100 ####[facility] [address] [place], [address] Creatinine [Mass/Vol] 0.93 mg/dL Normal 0.70-1.30 [facility] Comment on above: Result Comment: The validity of the calculated GFR GFRAA in patients over 70 years has not been determined. Clinical correlation is essential. Performed By: #### L 500.4050, L501.2450, L100.0100 ####[facility] [address] [place], [address] ECRCL 95.52 ml/min Normal [facility] Comment on above: Performed By: #### L 500.4050, L501.2450, L100.0100 ####[facility] [address] [place], [address] EST GFR - AA 118 mL/min Normal >60 [facility] Comment on above: Result Comment: Afri can Iraqi GFR Calc Performed By: #### L 500.4050, L501.2450, L100.0100 ####[facility] [address] [place], [address] GAP 4 Low 5-15 [facility] Comment on above: Performed By: #### L 500.4050, L501.2450, L100.0100 ####[facility] [address] [place], [address] GFR/1.73 sq M.predicted among non-blacks MDRD (S/P/Bld) [Vol rate/Area] 98 mL/min/{1.73_m2} Normal >60 [facility] Comment on above: Result Comment: Non- GFR Calc Performed By: #### L 500.4050, L501.2450, L100.0100 ####[facility] [address] [place], [address] Globulin (S) [Mass/Vol] 3.3 g/dL Normal 2.2-4.2 [facility] Comment on above: Performed By: #### L 500.4050, L501.2450, L100.0100 ####[facility] [address] [place], [address] Glucose [Mass/Vol] 103 mg/dL Normal 74-106 [facility] Comment on above: Result Comment: Fast ing Glucose result from 100 to 125 mg/dL suggests IMPAIRED HOMEOSTASIS per A.D.A. criteria. Performed By: #### L 500.4050, L501.2450, L100.0100 ####[facility] [address] [place], [address] Potassium [Moles/Vol] 3.6 mmol/L Normal 3.5-5.1 [facility] Comment on above: Performed By: #### L 500.4050, L501.2450, L100.0100 ####[facility] [address] [place], [address] Sodium [Moles/Vol] 140 mmol/L Normal 136-145 [facility] Comment on above: Performed By: #### L 500.4050, L501.2450, L100.0100 ####[facility] [address] [place], [address] T PROT 7.5 g/dL Normal 6.4-8.2 [facility] Comment on above: Performed By: #### L 500.4050, L501.2450, L100.0100 ####[facility] [address] [place], [address] Urea nitrogen [Mass/Vol] 11 mg/dL Normal 7-18 [facility] Comment on above: Performed By: #### L 500.4050, L501.2450, L100.0100 ####[facility] [address] [place], [address] Determination of erythrocyte mean corpuscular volume (MCV)Ordered By: Polo Han on 09-17-2023 MCV (RBC) [Entitic vol] 91.4 fL 80-94 [facility] Emergency Department Summary on 09-17-2023 Emergency Department Summary [facility] Medical Records Department [address] [place] [address] Emergency Department Summary 09/17/23 MR#: [id number] Acct: [id number] Name: MANOLO GUZMAN Rep #: [id number] : 1985 38 From: Polo Han MD PCP: MARY ALICE Brown Status:REG ER Location: ED HPI History of Present Illness Chief Complaint: Abd Pain Narrative Narrative: Patient presents with 1 to 2 hours of abdominal pain on the right side it is right upper and right middle abdominal pain. No right lower abdominal pain. No fevers or chills no flank pain. He has had this problem multiple times in the past few months had a CT which was unremarkable for acute pathology. No fever or chills. No urinary symptoms. No nausea vomiting or diarrhea [facility] Medical History (Updated 09/17/23 @ 02:[address] Polo Han MD) Encounter for preventative adult health care examination GERD (gastroesophageal reflux disease) History of kidney stones Injury of groin Right inguinal pain Home Medications NK 09/17/23 [History Last Taken Unknown] Allergy/AdvReac Type Severity Reaction Status Date / Time No Known Allergies Allergy Verified 09/17/23 01:08 Family History Brother Asthma Mother Breast cancer Skin cancer Social History Smoking Status: Current every day smoker tobacco type: e-cigarettes alcohol intake: current alcohol intake frequency: a few times a week Alcohol type: beer substance use type: does not use what type of physical activity do you participate in: other details: sports/ jui jitsu ROS ROS ED ROS Narrative Past medical history: Reviewed Medications: Reviewed Social history: Noncontributory Review of systems: All systems negative except as indicated General: No fever Eyes: No visual changes ENT: No upper airway congestion, normal voice Neck: No neck pain Cardiovascular: No chest pain Respiratory: No shortness of breath or cough Gastrointestinal: Abdominal pain as in HPI Genitourinary: No dysuria Musculoskeletal: Denies myalgias no difficulty with ambulation Skin: No rash Neurological: No memory loss, confusion or any focal weakness EXAM Physical Exam Narrative Exam Narrative: Physical exam General: Well nourished, Well developed, No Acute Distress Head: Normocephalic, Atraumatic Eyes: Conjunctiva not pale ENT: Moist mucous membranes Neck: Supple, Nontender, No lymphadenopathy Cardiovascular: Regular rate, Regular rhythm Respiratory: No distress, CTA bilaterally Abdomen: Soft, tenderness palpation in the right upper quadrant and right mid. Valenzuela's is negative. No lower abdominal pain or pain at McBurney's. No left-sided abdominal pain. No CVA tenderness Back: Nontender, Normal Inspection. Negative for: CVA tenderness Extremities: Nontender, No edema Skin: Normal color, No rash Neurological: Alert, Normal Strength, Normal Sensation Psychological: Normal affect Const Vital Signs: 09/17/23 01:10 Temperature 98.3 F Temperature Source Oral Pulse Rate 80 Respiratory Rate 20 H Blood Pressure 175/108 H Blood Pressure Mean 130 Pulse Ox 100 Oxygen Delivery Method Room Air MDM MDM MDM Narrative Medical decision making narrative: Patient did have a greasy dinner after which she developed pain he likely has gallbladder disease he had a CT which did not show gallstones. Regardless he probably needs an ultrasound, I cannot get one at this time a night but I do not believe he needs an emergent 1. He has slight elevation of his lipase but not pancreatitis. He does not have any evidence of choledocholithiasis based on blood work. After analgesics is significantly improved. His pain is now better. I think he needs an ultrasound I will refer him to surgery, he is also to call his PCP. If anything changes she is to return. I educated him on diet. Lab Data Labs: Laboratory Results - last 24 hr 09/17/23 01:20 WBC 7.1 RBC 4.98 Hgb 15.0 Hct 45.5 MCV 91.4 MCH 30.1 MCHC 33.0 RDW Std Deviation 42.0 RDW Coeff of Marquez 12.7 Plt Count 315 MPV 9.4 Immature Gran % (Auto) 0.300 Neut % (Auto) 44.0 L Lymph % (Auto) 41.1 H Evans % (Auto) 9.8 Eos % (Auto) 3.8 Baso % (Auto) 1.0 Absolute Neuts (auto) 3.1 Absolute Lymphs (auto) 2.93 Nucleated RBC % 0 Sodium 140 Potassium 3.6 Chloride 105 Carbon Dioxide 31.0 Anion Gap 4 L BUN 11 Creatinine 0.93 Estim Creat Clear Calc 95.52 Est GFR (MDRD) Af Amer 118 Est GFR (MDRD) Non-Af 98 BUN/Creatinine Ratio 11.8 Glucose 103 Calcium 9.2 Total Bilirubin 0.30 AST 20 ALT 30 Alkaline Phosphatase 70 Total Protein 7.5 Albumin 4.2 Globul (more content not included)... Normal [facility] Hematocrit Auto (Bld) [Volum e fraction]Ordered By: Polo Han on 09-17-2023 Hematocrit (Bld) [Volume fraction] 45.5 % 40-54 [facility] Laboratory - Chemistry and C hemistry - challengeOrdered By: Polo Han on 09-17-2023 ALP [Catalytic activity/Vol] 70 U/L 45-117 [facility] ALT [Catalytic activity/Vol] 30 U/L 16-61 [facility] CO2 [Moles/Vol] 31.0 mmol/L 21.0-32.0 [facility] Globulin (S) [Mass/Vol] 3.3 g/dL 2.2-4.2 [facility] Lipase [Catalytic activity/Vol] 90 U/L [facility] Comment on above: Please note:LIPASE r evised reference range effective 23. New Lipase methodology. Expected to produce lower values than the previous assay method. NEW Reference Range: 13 - 75 U/L Urea nitrogen/Creatinine [Mass ratio] 11.8 mg/mg 10-20 [facility] - Hematology and Cell countsOrdered By: Polo Han on 09-17-2023 Erythrocyte distribution width (RBC) [Entitic vol] 42.0 fL 35.1-43.9 [facility] Erythrocyte distribution width (RBC) [Ratio] 12.7 % 11.6-14.6 [facility] Immature granulocytes/100 WBC (Bld) 0.300 % 0.0-0.9 [facility] Comment on above: IG% - Immature Granu locytes (promyelocytes, myelocytes and metamyelocytes) > 1% indicates that a LEFT SHIFT is Present. MCH (RBC) [Entitic mass] 30.1 pg 27.0-32.0 [facility] Nucleated RBC/100 WBC (Bld) [Ratio] 0 % 0-5 [facility] Lipaseon 09-17-2023 Lipase [Catalytic activity/Vol] 90 U/L High [facility] Comment on above: Result Comment: Seven beck note: LIPASE revised reference range effective 23. New Lipase methodology. Expected to produce lower values than the previous assay method. NEW Reference Range: 13 - 75 U/L Performed By: #### L 500.4050, L501.2450, L100.0100 ####[facility] [address] [place], [address] MCHC Auto (RBC) [Mass/Vol]Or dered By: Polo Han on 09-17-2023 MCHC (RBC) [Mass/Vol] 33.0 g/dL 32-36 [facility] No Panel InformationOrdered By: Polo Han on 09-17-2023 Estimated Creatinine Clearance Calc 95.52 ml/min [facility] Estimated GFR (MDRD) Amer 118 mL/min >60 [facility] Comment on above: GFR Calc Estimated GFR (MDRD) Non-Af Amer 98 mL/min >60 [facility] Comment on above: Non- GFR Calc Platelets bldOrdered By: Miguelina Han on 09-17-2023 Platelets (Bld) [#/Vol] 315 10*3/uL 150-450 [facility] Serum or plasma albumin ping urement (mass/volume)Ordered By: Polo Han on 09-17-2023 Albumin [Mass/Vol] 4.2 g/dL 3.2-5.0 [facility] Serum or plasma albumin/glob ulin mass ratioOrdered By: Polo Han on 09-17-2023 Albumin/Globulin [Mass ratio] 1.3 {ratio} 0.9-2.4 [facility] Serum or plasma calcium ping urement (mass/volume)Ordered By: Polo Han on 09-17-2023 Calcium [Mass/Vol] 9.2 mg/dL 8.5-10.1 [facility] Serum or plasma creatinine m easurement (mass/volume)Ordered By: Polo Han on 09-17-2023 Creatinine [Mass/Vol] 0.93 mg/dL 0.70-1.30 [facility] Comment on above: The validity of the calculated GFR & GFRAA in patients over 70 years has not been determined. Clinical correlation is essential. Serum or plasma urea nitroge n measurement (mass/volume)Ordered By: Polo Han on 09-17-2023 Urea nitrogen [Mass/Vol] 11 mg/dL 7-18 [facility] Thin prep Papanicolaou smear with manual screeningOrdered By: Polo Han on 09-17-2023 Thin prep Papanicolaou smear with manual screening 20 U/L 15-37 [facility] Thin prep Papanicolaou smear with manual screening 4 5-15 [facility] C. trachomatis+N. gonorrhoea e DNA VY+probe Ql (Unsp spec)on 08-30-2023 C. trachomatis rRNA VY+probe Ql (Unsp spec) Negative Negative for Chlamydia trachomatis by amplificaton [facility] N. gonorrhoeae rRNA VY+probe Ql (Unsp spec) Negative Negative for Neisseria gonorrhoeae by amplification [facility] C. trachomatis rRNA VY+probe Ql (Unsp spec) Negative Normal Negative for Chlamydia trachomatis by amplificaton [facility] Comment on above: Order Comment: Speci men Type: URINE SPECIMEN Ordering Facility: [facility] Address: [place] [address] Performed By: #### 3 6902-5 #### [facility] CLIA [id number] [address] [place] [address] OF [facility] N. gonorrhoeae rRNA VY+probe Ql (Unsp spec) Negative Normal Negative for Neisseria gonorrhoeae by amplification [facility] Comment on above: Order Comment: Speci men Type: URINE SPECIMEN Ordering Facility: [facility] Address: [place] [address] Performed By: #### 3 6902-5 #### [facility] CLIA [id number] [address] [place] [address] OF JIMMIE CNOVon 08-30-2023 CNOV Office Visit (UCTR ) MANOLO GUZMAN ([id number]) 1985 M Date Time Provider Department 08/30/23 11:15 AM JAMEE MENARD [facility] During your visit today, we recorded the following information about you: Temperature Pulse Respiration Blood pressure 97.4 degrees 92/minute 18/minute 147/93 Weight 68.2 kg Jamee Menard APRN.WORLD TRAVEL COUNSELOR 08/30/2023 11:31 AM Signed Subjective Patient came in and wanted STD tested. Patient says he had an unprotected oral encounter with a stranger on Sunday afternoon. Patient says it just feels different but no real symptoms at this time. Did educate patient that it usually takes 7 to 21 days to contract anything. Patient still wants tested. The history is provided by the patient. No language path was used. Review of Systems Constitutional: Negative. [...] was okay with this care plan. Terry Menard APRN.WORLD TRAVEL COUNSELOR Allergies As of Date: 08/30/2023 (No Known Allergies) Date Reviewed: 08/30/2023 Reviewed by: Vani Abad MA - Fully Assessed Reason for Visit: STD [102] Cmt: Testing Primary Visit Diagnosis:STD exposure [Z20.2] Order(s):TRICHOMONAS VAGINALIS NAAT [SQTRVAMP] Order #: [id number] FUTURE GONORRHEA/CHLAMYDIA NAAT [SQGCCT] Order #: [id number]. #:[id number] TRICHOMONAS VAGINALIS NAAT [SQTRVAMP] Order #: [id number]. #:[id number] Problem List As Of Date: 08/30/2023 (None) Encounter Status:Closed by JAMEE MENARD on 08/30/23 [facility] 08-30-2023 [facility] Telephone (UCTR) MANOLO GUZMAN ([id number]) 1985 M Date Time Provider Department 08/30/23 JAMEE MENARD [facility] During your visit today, we recorded the following information about you: Jamee Menard APRN.WORLD TRAVEL COUNSELOR 08/30/2023 7:04 PM Signed Patient was negative for trichomonas, gonorrhea, chlamydia, Chu Rivers LPN 08/30/2023 7:08 PM Signed Patient given results and verbalized understanding of instructions given. Chu Rivers LPN Allergies As of Date: 08/30/2023 (No Known Allergies) Date Reviewed: 08/30/2023 Reviewed by: Vani Abad MA - Fully Assessed Reason for Visit: Results [95] Problem List As Of Date: 08/30/2023 (None) Encounter Status:Closed by CHU RIVERS on 08/30/[address] [facility] TRICHOMONAS VAGINALIS NAATon 08-30-2023 T. vaginalis DNA VY+probe Ql (Unsp spec) Negative Negative for Trichomonas vaginalis by amplification [facility] T. vaginalis DNA VY+probe Ql (Unsp spec) Negative Normal Negative for Trichomonas vaginalis by amplification [facility] Comment on above: Order Comment: Speci men Type: URINE SPECIMEN Ordering Facility: [facility] Address: [address] [place] [address] Performed By: #### T RVAMP #### [facility] CLIA [id number] [address] [place] [address] [place] Abdomen/Pelvis WITH Contrast on 08-29-2023 Abdomen/Pelvis WITH Contrast [facility] [address] [place] [id number] Abdomen/Pelvis WITH Contrast MR#: [id number] Acct: [id number] Name: MANOLO GUZMAN Rep #: [id number] : 1985 M 38 From: Pancho Hahn MD PCP: MARY ALICE Brown Status: REG CLI Study: Abdomen/Pelvis WITH Contrast Date of Exam: 10/11 Exam# [id number] Ordering Dr: Jeronimo Zamora NP [employer] PROC[employer] [id number] STUDY: CT ABDOMEN AND PELVIS WITH CONTRAST REASON FOR EXAM: Male, 38 years old. LIVER DISEASE RADIATION DOSAGE (If Supplied By Facility): CTDIvol = ( 8.23 ) mGy, DLP = ( 374.86 ) mGycm TECHNIQUE: Transaxial images were obtained from the dome of the diaphragm to the symphysis pubis without oral contrast. IV 100mL Isovue-300 was administered. Sagittal and coronal images were reconstructed. Individualized dose optimization techniques were used for this CT. COMPARISON: None. FINDINGS: The visualized lung bases are unremarkable. The visualized portions of the heart are within normal limits. Mild nonspecific fatty infiltrated liver. There is a hypoattenuated nodule in the lateral segment of left lobe measuring approximately 2.4 x 2 cm which has a solid appearance with subtle peripheral nodular enhancement likely hemangioma. Normal gallbladder and extrahepatic biliary system. Normal spleen. Normal pancreas. Normal bilateral adrenal glands. Tiny nonobstructing calculus in the lower pole of the right kidney. No evidence for renal obstruction or mass in either kidney. Normal visualized stomach. Normal small intestine. Scattered diverticular changes of the colon without evidence for acute diverticulitis. The appendix is visualized and appears normal. Normal abdominal aorta. Normal inferior vena cava. Normal retroperitoneum. Poorly distended thick walled bladder likely of no significance. Normal abdominal wall. Normal osseous structures. CT/Abdomen/Pelvis WITH Contrast IMPRESSION: Nonspecific fatty infiltrated liver with focal solid nodule in the lateral segment of left lobe most likely hemangioma. MRI would be useful for further evaluation Tiny nonobstructing right renal calculus.. Diverticular disease of the colon without evidence for acute diverticulitis Electronically Signed: Pancho Hahn MD at 16:31 EDT , CC: MARY ALICE Zamora Truck Trailer Mechanic: Signed Normal [facility] Vital Signs Date Time Vital Sign Value Performing Clinician Facility 12-19-2023 15:38-0500 Body temperature 97.6 [degF] [employer] Jeronimo Zamora [facility] Work Phone: 9(333)843-824414 [place] [address] 12-19-2023 15:38-0500 Diastolic blood pressure 88 mm[Hg] [employer] Jeronimo Zamora [facility] Work Phone: 9(901)374-646714 [place] [address] 12-19-2023 15:38-0500 Heart rate 93 /min [employer] Jeronimo Zamora [facility] Work Phone: 9(475)818-145214 [place] [address] 12-19-2023 15:38-0500 Respiratory rate 16 /min [employer] Jeronimo Zamora [facility] Work Phone: 9(594)866-685214 [place] [address] 12-19-2023 15:38-0500 SaO2% (BldA) [Mass fraction] 100 % [employer] Jeronimo Zamora [facility] Work Phone: 9(423)921-488614 [place] [address] 12-19-2023 15:38-0500 Systolic blood pressure 141 mm[Hg] [employer] PROCESS[employer] Jeronimo Zamora [facility] Work Phone: 6(998)986-882314 [place] [address] 12-19-2023 08:58-0500 Body height 165.1 cm [employer] Jeronimo Zamora [facility] Work Phone: 9(354)741-513414 [place] [address] 12-19-2023 08:58-0500 Body mass index (BMI) [Ratio] 24.5 kg/m2 [employer] Jeronimo Zamora [facility] Work Phone: 5(155)578-551114 [place] [address] 12-19-2023 08:58-0500 Body weight 67 kg [employer] PROC[employer] Jeronimo Zamora [facility] Work Phone: 4(241)030-308314 [place] [address] 12-10-2023 05:39-0500 Diastolic blood pressure 81 mm[Hg] [employer] PROCESS[employer] Jeronimo Zamora [facility] Work Phone: 4(253)604-095114 [place] [address] 12-10-2023 05:39-0500 Heart rate 74 /min [employer] Jeronimo Zamora [facility] Work Phone: 4(045)568-300314 [place] [address] 12-10-2023 05:39-0500 Respiratory rate 16 /min [employer] Jeronimo Zamora [facility] Work Phone: 6(407)962-667714 [place] [address] 12-10-2023 05:39-0500 SaO2% (BldA) [Mass fraction] 99 % [employer] PROC[employer] Jeronimo Zamora [facility] Work Phone: 2(978)682-868014 [place] [address] 12-10-2023 05:39-0500 Systolic blood pressure 143 mm[Hg] [employer] PROCESSOR-C Jeronimo Zamora [facility] Work Phone: 8(541)846-889114 [place] [address] 12-10-2023 03:54-0500 Body height 165.1 cm [employer] Jeronimo Zamora [facility] Work Phone: 3(953)199-546514 [place] [address] 12-10-2023 03:54-0500 Body mass index (BMI) [Ratio] 26.4 kg/m2 [employer] Jeronimo Zamora [facility] Work Phone: 7(591)211-620814 [place] [address] 12-10-2023 03:54-0500 Body temperature 97.5 [degF] [employer] PROCESSOR-C Jeronimo Zamora [facility] Work Phone: 8(365)713-266714 [place] [address] 12-10-2023 03:54-0500 Body weight 71.9 kg [employer] PROCESS[employer] Jeronimo Zamora [facility] Work Phone: 2(171)073-605914 [place] [address] 12-10-2023 03:54-0500 Diastolic blood pressure 92 mm[Hg] [employer] PROCESSOR-C Jeronimo Zamora [facility]SC Work Phone: 1(660)095-238014 [place] [address] 12-10-2023 03:54-0500 Heart rate 78 /min [employer] PROC[employer] Jeronimo Zamora [facility] Work Phone: 1(090)321-331014 [place] [address] 12-10-2023 03:54-0500 Respiratory rate 16 /min [employer] PROC[employer] Jeronimo Zamora [facility] Work Phone: 4(828)172-114714 [place] [address] 12-10-2023 03:54-0500 SaO2% (BldA) [Mass fraction] 99 % [employer] PROCESSOR-[employer] Jeronimo Zamora [facility] Work Phone: 7(499)575-893614 [place] [address] 12-10-2023 03:54-0500 Systolic blood pressure 145 mm[Hg] [employer] PROCESSOR-C Jeronimo Zamora [facility] Work Phone: 9(744)784-579814 [place] [address] 10-23-2023 05:19-0500 Diastolic blood pressure 79 mm[Hg] [employer] PROCESSOR-C Jeronimo Zamora [facility] Work Phone: 4(789)126-226114 [place] [address] 10-23-2023 05:19-0500 Heart rate 79 /min [employer] PROC[employer] Jeronimo Zamora [facility] Work Phone: 1(792)625-375814 [place] [address] 10-23-2023 05:19-0500 Respiratory rate 18 /min [employer] PROC[employer] Jeronimo Zamora [facility] Work Phone: 3(110)071-779514 [place] [address] 10-23-2023 05:19-0500 SaO2% (BldA) [Mass fraction] 99 % [employer] PROCESS[employer]-C Jeronimo Zamora [facility] Work Phone: 7(130)007-326714 [place] [address] 10-23-2023 05:19-0500 Systolic blood pressure 138 mm[Hg] [employer]RA PROCESSOR-C Jeronimo Zamora [facility]SC Work Phone: 9(095)023-526514 [place] [address] 10-23-2023 03:03-0500 Body height 165.1 cm [employer] PROCESSOR-C Jeronimo Zamora [facility] Work Phone: 0(201)724-354514 [place] [address] 10-23-2023 03:03-0500 Body mass index (BMI) [Ratio] 25.9 kg/m2 [employer] Jeronimo Zamora [facility] Work Phone: 3(139)571-328414 [place] [address] 10-23-2023 03:03-0500 Body temperature 96.5 [degF] [employer] PROCESSOR-C Jeronimo Zamora [facility] Work Phone: 5(474)575-818114 [place] [address] 10-23-2023 03:03-0500 Body weight 70.8 kg [employer] PROCESSOR-C Jeronimo Zamora [facility] Work Phone: 8(148)513-066014 [place] [address] 10-22-2023 14:30-0500 Body mass index (BMI) [Ratio] 25.6 kg/m2 [employer] PROC[employer] Jeronimo Zamora [facility] Work Phone: 3(110)323-688014 [place] [address] 10-22-2023 14:30-0500 Body temperature 98.2 [degF] [employer] PROCESSOR-C Jeronimo Zamora [facility] Work Phone: 8(004)545-718714 [place] [address] 10-22-2023 14:30-0500 Body weight 69.85 kg [employer] PROCESSOR-C Jeronimo Zamora [facility] Work Phone: 4(035)874-261814 [place] [address] 10-22-2023 14:30-0500 Diastolic blood pressure 85 mm[Hg] [employer] PROCESSOR-C Jeronimo Zamora [facility]SC Work Phone: 3(336)834-841914 [place] [address] 10-22-2023 14:30-0500 Heart rate 84 /min [employer] PROCESSOR-C Jeronimo Zamora VSC Work Phone: [facility] 10-22-2023 14:30-0500 Respiratory rate 18 /min [employer] PROCESSOR-C Jeronimo Zamora VSC Work Phone: [facility] 10-22-2023 14:30-0500 SaO2% (BldA) [Mass fraction] 96 % [employer] PROCESSOR-C Jeronimo Zamora VSC Work Phone: [facility] 10-22-2023 14:30-0500 Systolic blood pressure 122 mm[Hg] COPRA PROCESSOR-C Jeronimo Zamora VSC Work Phone: [facility] 09-17-2023 01:10-0400 Body height 165.1 cm [employer] PROCESSOR-C Jeronimo Zamora COPRA PROCESSOR Work Phone: [facility] 09-17-2023 01:10-0400 Body mass index (BMI) [Ratio] 26.1 kg/m2 [employer] PROCESSOR-C Jeronimo Zamora COPRA PROCESSOR Work Phone: [facility] 09-17-2023 01:10-0400 Body temperature 98.3 [degF] [employer]RA PROCESSOR-C Jeronimo Zamora COPRA PROCESSOR Work Phone: [facility] 09-17-2023 01:10-0400 Body weight 71.1 kg [employer]RA PROCESSOR-C Jeronimo Zamora COPRA PROCESSOR Work Phone: [facility] 09-17-2023 01:10-0400 Diastolic blood pressure 108 mm[Hg] COPRA PROCESSOR-C Jeronimo Zamora COPRA PROCESSOR Work Phone: [facility] 09-17-2023 01:10-0400 Heart rate 80 /min [employer] PROCESSOR-C Jeronimo Zamora COPRA PROCESSOR Work Phone: [facility] 09-17-2023 01:10-0400 Respiratory rate 20 /min [employer] PROCESSOR-C Jeronimo Zamora COPRA PROCESSOR Work Phone: [facility] 09-17-2023 01:10-0400 SaO2% (BldA) [Mass fraction] 100 % [employer] PROCESSOR-C Jeronimo Zamora COPRA PROCESSOR Work Phone: [facility] 09-17-2023 01:10-0400 Systolic blood pressure 175 mm[Hg] [employer]RA PROCESSOR-C Jeronimo Zamora COPRA PROCESSOR Work Phone: [facility] 08-30-2023 11:14-0400 Body temperature 97.39 [degF] Jamee Menard APRN.WORLD TRAVEL COUNSELOR Work Phone: [facility] 08-30-2023 11:14-0400 Body weight 68.22 kg Jamee Menard APRN.WORLD TRAVEL COUNSELOR Work Phone: [facility] 08-30-2023 11:14-0400 Diastolic blood pressure 93 mm[Hg] Jamee Menard APRN.WORLD TRAVEL COUNSELOR Work Phone: [facility] 08-30-2023 11:14-0400 Heart rate 92 /min Jamee Menard APRN.WORLD TRAVEL COUNSELOR Work Phone: [facility] 08-30-2023 11:14-0400 Respiratory rate 18 /min Jamee Menard APRN.WORLD TRAVEL COUNSELOR Work Phone: [facility] 08-30-2023 11:14-0400 SaO2% (BldA) [Mass fraction] 98 % Jamee Menard APRN.WORLD TRAVEL COUNSELOR Work Phone: [facility] 08-30-2023 11:14-0400 Systolic blood pressure 147 mm[Hg] Jamee Menard APRN.WORLD TRAVEL COUNSELOR Work Phone: [facility] 05-28-2023 15:00-0400 Body height 165.1 cm COPRA PROCESSOR-C Jeronimo Zamora COPRA PROCESSOR Work Phone: [facility] 05-28-2023 15:00-0400 Body mass index (BMI) [Ratio] 25 kg/m2 COPRA PROCESSOR-C Jeronimo Zamora COPRA PROCESSOR Work Phone: [facility] 05-28-2023 15:00-0400 Body temperature 97.8 [degF] COPRA PROCESSOR-C Jeronimo Zamora COPRA PROCESSOR Work Phone: [facility] 05-28-2023 15:00-0400 Body weight 68.26 kg COPRA PROCESSOR-C Jeronimo Zamora COPRA PROCESSOR Work Phone: [facility] 05-28-2023 15:00-0400 Diastolic blood pressure 68 mm[Hg] COPRA PROCESSOR-C Jeronimo Zamora COPRA PROCESSOR Work Phone: [facility] 05-28-2023 15:00-0400 Heart rate 68 /min COPRA PROCESSOR-C Jeronimo Zamora COPRA PROCESSOR Work Phone: [facility] 05-28-2023 15:00-0400 Respiratory rate 14 /min COPRA PROCESSOR-C Jeronimo Zamora COPRA PROCESSOR Work Phone: [facility] 05-28-2023 15:00-0400 SaO2% (BldA) [Mass fraction] 98 % COPRA PROCESSOR-C Jeronimo Zamora COPRA PROCESSOR Work Phone: [facility] 05-28-2023 15:00-0400 Systolic blood pressure 110 mm[Hg] COPRA PROCESSOR-C Jeronimo Zamora COPRA PROCESSOR Work Phone: [facility] Encounters Encounter Date Encounter Type Care Provider Facility Start: 08-25-2024 End: 08-25-2024 ambulatory Jeronimo Zamora VSC Facility:[facility] Start: 08-12-2024 End: 08-12-2024 E-mail encounter from caregiver Elinor Radha TAYLORWORLD TRAVEL COUNSELOR Work Phone: [facility] Start: 08-12-2024 End: 08-12-2024 Patient encounter procedure Elinor Garcia APRN.WORLD TRAVEL COUNSELOR Work Phone: [facility] Comment on above: [facility] Start: 07-25-2024 End: 07-25-2024 ambulatory Jeronimo Zamora VSC Facility:[facility] Start: 06-18-2024 End: 06-18-2024 ambulatory Jeronimo Zamora VSC Facility:[facility] Start: 06-13-2024 Emergency department patient visit ARTURO HODGE Facility:[facility] Start: 05-23-2024 End: 05-23-2024 ambulatory Jeronimo Zamora VSC Facility:[facility] Start: 05-23-2024 End: 05-23-2024 ambulatory Jeronimo Zamora VSC Facility:[facility] Start: 01-01-2024 End: 01-01-2024 ambulatory Jeronimo Zamora VSC Facility:[facility] Start: 12-19-2023 Non-patient / Non-visit COPRA PROCESSOR-C Daniele Zamora [facility] Work Phone: [facility] Start: 12-19-2023 End: 12-19-2023 Admission to same day surgery center COPRA PROCESSOR-C Jeronimo Zamora VS Work Phone: [facility] Start: 12-19-2023 End: 12-19-2023 ambulatory COPRA PROCESSOR-C Jeronimo Zamora [facility] Work Phone: [facility] Work Phone: Start: 12-10-2023 End: 12-10-2023 Emergency department patient visit COPRA PROCESSOR-C Jeronimo Zamora VS Work Phone: [facility] Work Phone: Start: 10-23-2023 End: 10-23-2023 Emergency department patient visit COPRA PROCESSOR-C Jeronimo Zamora [facility] Work Phone: [facility] Work Phone: Start: 10-22-2023 End: 10-22-2023 Patient encounter procedure COPRA PROCESSOR-C Jeronimo Zamora [facility] Work Phone: [facility] Work Phone: Start: 10-22-2023 End: 10-22-2023 ambulatory Jeronimo Zamora [facility] Facility:[facility] Start: 10-05-2023 End: 10-05-2023 ambulatory [facility] Work Phone: Start: 10-05-2023 End: 10-05-2023 Patient encounter procedure [facility] Work Phone: Start: 10-05-2023 End: 10-05-2023 ambulatory Jeronimo Zamora [facility] Facility:[facility] Start: 09-27-2023 End: 09-27-2023 ambulatory [facility] Work Phone: Start: 09-27-2023 End: 09-27-2023 Patient encounter procedure [facility] [place] Work Phone: Start: 09-27-2023 End: 09-27-2023 ambulatory Jeronimo Zamora VSJag Facility:[facility] Start: 09-17-2023 End: 09-17-2023 Emergency department patient visit COPRA PROCESSOR-C Jeronimo Strangeder COPRA PROCESSOR Work Phone: [facility] Work Phone: Start: 08-30-2023 Telephone encounter Jamee Menard APRN.WORLD TRAVEL COUNSELOR Work Phone: [facility] Comment on above: Results Start: 08-30-2023 End: 08-30-2023 ambulatory ARTURO HODGE Facility:[facility] Start: 08-30-2023 End: 08-30-2023 Patient encounter procedure Jamee Menard APRN.WORLD TRAVEL COUNSELOR Work Phone: [facility] Comment on above: STD exposure (Primar y Dx) Start: 08-29-2023 End: 08-29-2023 ambulatory COPRA PROCESSOR-C Jeronimo Zamora COPRA PROCESSOR Work Phone: [facility] Work Phone: Start: 08-29-2023 End: 08-29-2023 Patient encounter procedure COPRA PROCESSOR-C Jeronimo Zamora COPRA PROCESSOR Work Phone: [facility] Work Phone: Start: 08-29-2023 End: 08-29-2023 ambulatory Jeronimo Zamora COPRA PROCESSOR Facility:[facility] Start: 05-28-2023 End: 05-28-2023 Patient encounter procedure COPRA PROCESSOR-C Jeronimo Zamora COPRA PROCESSOR Work Phone: [facility] Work Phone: Start: 09-07-2021 Patient encounter status COPRA PROCESSOR-C Jeronimo Zamora COPRA PROCESSOR Work Phone: [facility] Procedures Date Procedure Procedure Detail Performing Clinician Start: 12-19-2023 Total cholecystectom y and exploration of common bile duct COPRA PROCESSOR-C Jeronimo Zamora VSC Work Phone: Start: 12-19-2023 Cholangiogram COPRA PROCESSOR-C Jeronimo Zamora C Work Phone: Start: 12-19-2023 Fluoroscopic guidance N P-Jag Zamora VSC Work Phone: Start: 10-05-2023 MRI of abdomen with contrast Start: 09-27-2023 CT of abdomen Start: 08-30-2023 Iadna chlamydia trac homatis amplified probe tq Jamee Menard METAL SHAPING MACHINE OPERATOR.WORLD TRAVEL COUNSELOR Work Phone: Start: 08-29-2023 Computed tomography of abdomen and pelvis with contrast COPRA PROCESSOR-C Jeronimo Zamora COPRA PROCESSOR Work Phone: Plan of Treatment Date Care Activity Detail Author Start: 07-20-2024 Covid-19 Vaccine ( season) Covid-19 Vaccine () [facility] Start: 07-20-2024 Influenza vaccination Influenza Vacc ine (#1) [facility] Start: 12-19-2023 Patient discharge [facility] Start: 12-10-2023 [facility] Start: 10-23-2023 [facility] Start: 09-17-2023 [facility] Start: 07-20-2023 Influenza vaccination Influenza Vacc ine (#1) [facility] Start: 11-19-2022 Depression Assessment Depression Ass essment [facility] Start: 2022 Lipid 1996 panel - S ying or Plasma Lipid Screening [facility] Start: 2022 Lipid panel Lipid Screening [facility] Start: 2006 Hepatitis B Vaccine (1 of 3 - 19+ 3-dose series) Hepatitis B Vaccine (1 of 3 - 19+ 3-dose series) [facility] Start: 2006 Urine microalbumin profile DTaP,Tdap,Td Vaccine (1 - Tdap) [facility] Start: 2005 Anxiety Screening Anxiety Screening [facility] Start: 2005 Depression Screening Depression Scre ening [facility] Start: 2005 Hepatitis C Screening Hepatitis C [facility] Start: 2005 Hepatitis C screening Hepatitis C [facility] Start: 2005 HIV Screening HIV Screening [facility] Start: 2005 HIV screening HIV Screening [facility] Start: 1993 Pneumococcal vaccination [facility] Start: 1987 Covid-19 Vaccine (#1) Covid-19 Vacci ne (#1) [facility] Start: 1987 Hepatitis B Vaccine (1 of 3 - 3-dose series) Hepatitis B Vaccine (1 of 3 - 3-dose series) [facility] Patient Education [facility] Work Phone: Patient referral [facility] Work Phone: Payers Date Payer Category Payer Self-pay [id number] 2022 Medicaid [id number] 2022 Unknown [id number] Unknown [facility] D *DO NOT USE* [id number] Unknown [id number] Unknown [id number] Unknown [id number] Unknown [id number] Unknown [id number] Unknown [id number] Unknown [id number] Unknown [id number] Unknown [id number] Unknown [id number] [id number] Unknown [id number] [id number] Unknown [id number] [id number] Unknown [id number] [id number] Unknown [id number] [id number] Unknown [id number] Social History Date Type Detail Facility Start: [facility]30[facility]23 [facility] Start: 08-30-2023 Tobacco use and exposure Smokeless tobacco non-user [facility] Start: 08-30-2023 End: 06-14-2024 History of Social function [facility] Start: 08-30-2023 End: 06-14-2024 Tobacco use panel [facility] Start: 1985 Sex Assigned At Not on file C [facility] Start: 05-28-2023 End: 12-10-2023 Tobacco smoking status MSIS Unknown if ever smoked [facility] Start: 01-19-2021 Vapor [facility] Start: 1985 Sex Assigned At Male W [facility] National Score (1-100), lower number is lower risk 72 [facility] Goals Date Patient Goal Desired Activity /State Functional Status Date Assessment Result Facility 12-19-2023 Functional status Ambulates [facility] Work Phone: Mental Status Date Assessment Result Facility 12-19-2023 Cognitive function Voice/Name [facility] Work Phone: Clinical Notes 08-30-2023 to 12-19-2023 Note Date & Type Note Facility 12-19-2023 Discharge summary Note Date/Time December 19, 2023 10:33am [facility] Medical Records Department [address] [place] [address] Instructions for Home/Discharge Instructions 12/19/23 1031 MR#: [id number] Acct: [id number] Name: MANOLO GUZMAN Rep # :[id number] : 1985 38 From: Anil watt MD PCP: Jeronimo Zamora COPRA PROCESSOR-C Status:REG TXC Discharge Instructions Procedure Gallbladder Diet Discharge Diet: Light diet - advance as tolerated Activity Discharge Activity: May Not Drive (for 2-3 days or while taking narcotic pain medications.) and - (Do not drive, work heavy equipment or sign legal documents for 24 hours.) May shower in (days): 1 Lifting Restrictions: 20 lbs for 2 weeks Additional Activity Instructions:: Pain medication may cause nausea. You should typically eat light foods as you take your pain medications. Pain medication may also cause constipation. If this is a problem for you, please discuss with your doctor. Dressing / Incision Call your doctor if your incision/area has: Continuous Slow Oozing, Sudden Increased Bleeding, Increased Pain/ Swelling, Increased Redness and Foul Smelling Discharge Call your doctor if you observe: Fever of 101 or Higher Suture Line Care: Avoid Pulling/Pushing and Avoid Pinching/Bending Remove Dressing in: 2 days (Remove clear bandages in 2 days, remove Steri-Stripsin 7 to 10 days.) Additional Dressing/Incision Instructions:: Leave operative bandaids on for 2 days. Follow Up Care Please Follow Up With: Anil Pastrana MD When: Please call to schedule 2 week follow up appointment. [phone] Test Results: Test results from this visit will be discussed in further detail at your follow-up appointment, if applicable. Discharge Plan Admission Attending Provider: Anil Pastrana Primary Care Provider: Jeronimo Zamora [facility] Discharge Orders/Prescriptions Prescriptions: New acetaminophen 325 mg Tablet 650 mg PO Q4H PRN PRN (Reason: Pain Or Fever) Qty: 0 0RF oxycodone 5 mg Tablet 5 - 10 mg PO Q4H PRN PRN (Reason: Pain Score 4-10/10) 5 Days Qty: 20 0RF Discontinued hydrocodone-acetaminophen [hydrocodone-acetaminophen] 5-325 mg tablet 1 tab PO Q6H PRN PRN (Reason: Pain) 3 Days Qty: 10 0RF No Action famotidine 10 mg tablet 10 mg PO DAILY PRN (Reason: GERD) Referrals / Follow Up: Jeronimo Zamora, COPRA PROCESSOR-C [Primary Care Provider] - Disposition Disposition (needs filled in before D/C Order can be placed): Home, Self Care 12/19/23 1034<Electronically signed by Anil Pastrana MD>Anil Pastrana MD CC: COPRA PROCESSOR-C Jeronimo Zamora ~ Signed [facility] Work Phone: 1(602) 941-827101-31-2024 History and physical note Author Anil Pastrana [facility] December 19, 2023 9:07am Note Date/Time December 19, 2023 9 :08am [facility] Medical Records Department [address] [place] [address] History & Physical Exam 12/19/23906 MR#: [id number] Acct: [id number] Name: MANOLO GUZMAN Rep # :[id number] : 1985 38 From: Anil watt MD PCP: MARY ALICE Brown Status:REG [facility] Location: [place] [address] History and Physical Date of Admission: 12/19/23 Intake Vital Signs 09/17/2301:10 10/22/2314:30 Height 5 ft 5 in 5 ft 5 in Weight: 154 lb BMI 25.6 BP 122/85 H Blood Pressure Location Rt brachial Position Sitting Respiration 18 Pulse 84 Pulse Source Monitor Temp 98.2 F Temp Source Temporal Pulse Oximetry (%) 96 Oxygen Delivery Method room air Intake Visit Reasons: Gall Stones Chief Complaint: gall stones Sample Tailor Required: No Is patient in pain?: No Allergies No Known Allergies Allergy (Verified 10/22/23 14:31) Medications famotidine 10 mg tablet 10 mg PO DAILY 10/22/23 [History] [facility] Medical History (Updated 10/22/23 @ 14:29 by Mimi Huerta LPN) Encounter for preventative adult health care examination GERD (gastroesophageal reflux disease) History of kidney stones Injury of groin Right inguinal pain Family History Brother AsthmaMother Breast cancer Skin cancer Social History Smoking Status: Current every day smoker tobacco type: e-cigarettes alcohol intake: current alcohol intake frequency: a few times a week Alcohol type: beer substance use type: does not use what type of physical activity do you participate in: other details: sports/ jui jitsu HPI HPI HPI: Patient is a 38-year-old male with pain that is waking him from sleep. He says it happens occasionally and there is no correspondence with what he eats or what time he eats. It wakes him in the middle the night he has pain that radiates to the middle of his back and in the right upper quadrant and right flank. Patient denies any fevers or chills or nausea or vomiting this time. ROS Musc Musculoskeletal: Yes back problems Psych Psychiatric: Yes depression and anxiety Gastro Gastrointestinal: Yes abdominal pain, Yes acid reflux and Yes gallbladder problem Exam Const General: cooperative Orientation: alert and oriented x3 HENMT Head: normal to inspection Neck Neck: normal visual inspection and full ROM Chest Chest palpation & inspection: normal inspection of the chest Resp Effort & Inspection: normal respiratory effort Auscultation: clear to auscultation bilaterally Cardio Rate: regular rate Rhythm: regular rhythm GI Inspection: non-distended Palpation: soft and nontender Skin General: no rashes or lesions noted Neuro General: patient alert and patient oriented x3 Extrem General: full ROM Psych Appearance: grossly normal Mental Status: mental status grossly normal Assessment and Plan Assessment and Plan (1) Gall stones: Status: Acute Plan: Patient is having right upper quadrant pain radiating to the middle of the back that wakes him from sleep. He had an ultrasound in the emergency room that revealed he does have cholelithiasis with some large stones. I recommended laparoscopic cholecystectomy. I discussed the procedure in detail with the patient. I discussed the risks, benefits, and alternatives of the procedure. I discussed the risks including but not limited to bleeding, infection, injury to surrounding organs such as the liver, bile duct, bowels. I did discuss the possibility of having to convert to an open procedure as well as the possibility that if any injuries occurred this may necessitate further surgery at a tertiary care center. Anil Pastrana MD Pager: [facility] [address] [place] [address] [address] [place] [address] Office: I have examined the patient and the H&P has been reviewed. There are no clinical changes since date of exam. 12/19/23906 <Electronically signed by Anil Pastrana MD> Cosigner Signature (if applicable): CC: COPRA PROCESSOR-C Jeronimo Zamora; Dr. Anil Pastrana MD~ Signed [facility] Work Phone: 1(744) 817-419401-31-[address] [facility] 12-19-2023 [facility] Medical Records Department [address] [place] [address] History Physical Exam 12/19/23906 MR#: [id number] Acct: [id number] Name: MANOLO GUZMAN Rep #: [id number] : 1985 38 From: Anil Pastrana MD PCP: MARY ALICE Brown Status:[facility] Location: [place] [address] History and Physical Date of Admission: 12/19/23 Intake Vital Signs 09/17/2301:10 10/22/2314:30 Height 5 ft 5 in 5 ft 5 in Weight: 154 lb BMI 25.6 BP 122/85 H Blood Pressure Location Rt brachial Position Sitting Respiration 18 Pulse 84 Pulse Source Monitor Temp 98.2 F Temp Source Temporal Pulse Oximetry (%) 96 Oxygen Delivery Method room air Intake Visit Reasons: Gall Stones Chief Complaint: gall stones Sample Tailor Required: No Is patient in pain?: No Allergies No Known Allergies Allergy (Verified 10/22/23 14:31) Medications famotidine 10 mg tablet 10 mg PO DAILY 10/22/23 [History] [facility] Medical History (Updated 10/22/23 @ 14:29 by Mimi Huerta LPN) Encounter for preventative adult health care examination GERD (gastroesophageal reflux disease) History of kidney stones Injury of groin Right inguinal pain Family History Brother AsthmaMother Breast cancer Skin cancer Social History Smoking Status: Current every day smoker tobacco type: e-cigarettes alcohol intake: current alcohol intake frequency: a few times a week Alcohol type: beer substance use type: does not use what type of physical activity do you participate in: other details: sports/ jui jitsu HPI HPI HPI: Patient is a 38-year-old male with pain that is waking him from sleep. He says it happens occasionally and there is no correspondence with what he eats or what time he eats. It wakes him in the middle the night he has pain that radiates to the middle of his back and in the right upper quadrant and right flank. Patient denies any fevers or chills or nausea or vomiting this time. ROS Musc Musculoskeletal: Yes back problems Psych Psychiatric: Yes depression and anxiety Gastro Gastrointestinal: Yes abdominal pain, Yes acid reflux and Yes gallbladder problem Exam Const General: cooperative Orientation: alert and oriented x3 HENMT Head: normal to inspection Neck Neck: normal visual inspection and full ROM Chest Chest palpation inspection: normal inspection of the chest Resp Effort Inspection: normal respiratory effort Auscultation: clear to auscultation bilaterally Cardio Rate: regular rate Rhythm: regular rhythm GI Inspection: non-distended Palpation: soft and nontender Skin General: no rashes or lesions noted Neuro General: patient alert and patient oriented x3 Extrem General: full ROM Psych Appearance: grossly normal Mental Status: mental status grossly normal Assessment and Plan Assessment and Plan (1) Gall stones: Status: Acute Plan: Patient is having right upper quadrant pain radiating to the middle of the back that wakes him from sleep. He had an ultrasound in the emergency room that revealed he does have cholelithiasis with some large stones. I recommended laparoscopic cholecystectomy. I discussed the procedure in detail with the patient. I discussed the risks, benefits, and alternatives of the procedure. I discussed the risks including but not limited to bleeding, infection, injury to surrounding organs such as the liver, bile duct, bowels. I did discuss the possibility of having to convert to an open procedure as well as the possibility that if any injuries occurred this may necessitate further surgery at a tertiary care center. Anil Pastrana MD Pager: [facility] [address] [place] [address], [address] [place] [address] Office: I have examined the patient and the H P has been reviewed. There are no clinical changes since date of exam. 12/19/23 0907 Cosigner Signature (if applicable): CC: MARY ALICE Zamora; Dr. Anil Pastrana MD [facility] Miscellaneous Notes* Telephone Encounter - Chu Rivers LPN - 08/30/2023 7:07 PM EDT Patient given results and verbalized understanding of instructions given. Chu Rivers LPN * Telephone Encounter - Jamee Menard APRN.MANA - 08/30/2023 7:03 PM EDT Patient was negative for trichomonas, gonorrhea, chlamydia, [facility] NoteHNO ID: [id number] Author: Jamee Menard APRN.MANA Service: ? Author Type: Nurse Practitioner [...] history is provided by the patient. No language path was used. Review of Systems Constitutional: Negative. [...] okay with this care plan. I Jamee Sadiq, METAL SHAPING MACHINE OPERATOR.[facility]NP[facility] History of Present illness Narrative* Jamee Menard APRN.MANA - 08/30/2023 11:25 AM EDT Subjective Patient came in and wanted STD tested. Patient says he had an unprotected oral encounter with a stranger on Sunday afternoon. Patient says it just feels different but no real symptoms at this time. Did educate patient that it usually takes 7 to 21 days to contract anything. Patient still wants tested. The history is provided by the patient. No language path was used. Review of Systems Constitutional: Negative. [...] okay with this care plan. I Jamee Menard APRN.WORLD TRAVEL COUNSELOR documented in this encounterL[facility] CenterDischarge summary Author Polo Han [facility] September 17, 2023 2:58am Note Date/Time September 17, 2023 1 :19am [facility] Medical Records Department [address] [place] [address] Emergency Department Summary 09/17/23 MR#: [id number] Acct: [id number] Name: MANOLO GUZMAN Rep # :[id number] : 1985 38 From: Polo Han MD PCP: MARY ALICE Brown Status:REG ER Location: ED HPI History of Present Illness Chief Complaint: Abd Pain Narrative Narrative: Patient presents with 1 to 2 hours of abdominal pain on the right side it is right upper and right middle abdominal pain. No right lower abdominal pain. Nofevers or chills no flank pain. He has had this problem multiple times in the past few months had a CT which was unremarkable for acute pathology. No fever or chills. No urinary symptoms. No nausea vomiting or diarrhea [facility] Medical History (Updated 09/17/23 @ 02:[address] Polo Han MD) Encounter for preventative adult health care examination GERD (gastroesophageal reflux disease) History of kidney stones Injury of groin Right inguinal pain Home Medications NK 09/17/23 [History Last Taken Unknown] Allergy/AdvReac Type Severity Reaction Status Date / Time No Known Allergies Allergy Verified 09/17/23 01:08 Family History Brother Asthma Mother Breast cancer Skin cancer Social History Smoking Status: Current every day smoker tobacco type: e-cigarettes alcohol intake: current alcohol intake frequency: a few times a week Alcohol type: beer substance use type: does not use what type of physical activity do you participate in: other details: sports/ jui [email or web address] ROS ROS ED ROS Narrative Past medical history: Reviewed Medications: Reviewed Social history: Noncontributory Review of systems: All systems negative except as indicated General: No fever Eyes: No visual changes ENT: No upper airway congestion, normal voice Neck: No neck pain Cardiovascular: No chest pain Respiratory: No shortness of breath or cough Gastrointestinal: Abdominal pain as in HPI Genitourinary: No dysuria Musculoskeletal: Denies myalgias no difficulty with ambulation Skin: No rash Neurological: No memory loss, confusion or any focal weakness EXAM Physical Exam Narrative Exam Narrative: Physical exam General: Well nourished, Well developed, No Acute Distress Head: Normocephalic, Atraumatic Eyes: Conjunctiva not pale ENT: Moist mucous membranes Neck: Supple, Nontender, No lymphadenopathy Cardiovascular: Regular rate, Regular rhythm Respiratory: No distress, CTA bilaterally Abdomen: Soft, tenderness palpation in the right upper quadrant and right mid. Valenzuela's is negative. No lower abdominal pain or pain at McBurney's. No left- sided abdominal pain. No CVA tenderness Back: Nontender, Normal Inspection. Negative for: CVA tenderness Extremities: Nontender, No edema Skin: Normal color, No rash Neurological: Alert, Normal Strength, Normal Sensation Psychological: Normal affect Const Vital Signs: 09/17/23 01:10 Temperature 98.3 F Temperature Source Oral Pulse Rate 80 Respiratory Rate 20 H Blood Pressure 175/108 H Blood Pressure Mean 130 Pulse Ox 100 Oxygen Delivery Method Room Air MDM MDM MDM Narrative Medical decision making narrative: Patient did have a greasy dinner after which she developed pain he likely has gallbladder disease he had a CT which did not show gallstones. Regardless he probably needs an ultrasound, I cannot get one at this time a night but I do notbelieve he needs an emergent 1. He has slight elevation of his lipase but not pancreatitis. He does not have any evidence of choledocholithiasis based on blood work. After analgesics is significantly improved. His pain is now better. I think he needs an ultrasound I will refer him to surgery, he is also to call his PCP. If anything changes she is to return. I educated him on diet. Lab Data Labs: Laboratory Results - last 24 hr 09/17/23 01:20 WBC 7.1 RBC 4.98 Hgb 15.0 Hct 45.5 MCV 91.4 MCH 30.1 MCHC 33.0 RDW Std Deviation 42.0 RDW Coeff of Marquez 12.7 Plt Count 315 MPV 9.4 Immature Gran % (Auto) 0.300 Neut % (Auto) 44.0 L Lymph % (Auto) 41.1 H Evans % (Auto) 9.8 Eos % (Auto) 3.8 Baso % (Auto) 1.0 Absolute Neuts (auto) 3.1 Absolute Lymphs (auto) 2.93 Nucleated RBC % 0 Sodium 140 Potassium 3.6 Chloride 105 Carbon Dioxide 31.0 Anion Gap 4 L BUN 11 Creatinine 0.93 Estim Creat Clear Calc 95.52 Est GFR (MDRD) Af Amer 118 Est GFR (MDRD) Non-Af 98 BUN/Creatinine Ratio 11.8 Glucose 103 Calcium 9.2 Total Bilirubin 0.30 AST 20 ALT 30 Alkaline Phosphatase 70 Total Protein 7.5 Albumin 4.2 Globulin 3.3 Albumin/Globulin Ratio 1.3 Lipase 90 H Discharge Plan Triage Chief Complaint: Abd Pain ED Provider: Polo Han Dx/Rx/DC Orders Clinical Impression: Chronic right upper quadrant pain, Abdominal pain Instructions: Abdominal Pain Prescriptions: No Action NK Primary Care Provider: Jeronimo Zamora NP Referrals: Anil Pastrana MD [Med Staff - Active Staff] - 3-5 Days Jeronimo Zamora NP, COPRA PROCESSOR-C [Primary Care Provider] - 3-5 Days What to do if you have Problems For any increased pain, shortness of breath, bleeding, nausea or vomiting, chestpain, or any unexpected problems, contact your Primary Care Provider. Call [facility] ([phone]) or report to the closest Emergency Room. Call 911 if necessary. 09/17/23 0258 <Electronically signed by Polo Han MD> Cosigner Signature (if applicable): CC: MARY ALICE Zamora ~ Signed [facility] Work Phone: Discharge summary Author Eze Holland [facility] October 23, 2023 5:18am Note Date/Time October 23, 2023 3 :26am [facility] Medical Records Department [address] [place] [id number] Emergency Department Summary 10/23/23 MR#: [id number] Acct: [id number] Name: MANOLO GUZMAN Rep # :[id number] : 1985 38 From: Eze Gunn PCP: MARY ALICE Brown Status:REG ER Location: ED HPI HPI - GI History of Present Illness Chief Complaint: Abd Pain Informant: patient Narrative Narrative: Worsening right upper quadrant pain radiating to his back awaken him at 2:10 AM. On and off intermittent symptoms for last couple months would come randomly. Denies nausea or vomiting or diarrhea. Denies fever or chills. He has known cholelithiasis, states followed up with surgery yesterday as an outpatient. Recommended cholecystectomy, however he states he tried delaying the November dueto personal issues with moving. He is on PAP acid. He tried taking a Tums withno relief. He ate a famous bowl at [facility] with gravy at 7 PM. Denies any allergies. He states with the pain going to his back similar to his gallstone pains. Prior similar symptoms: Yes PFSH [facility] Medical History Encounter for preventative adult health care examination GERD (gastroesophageal reflux disease) History of kidney stones Injury of groin Right inguinal pain Home Medications famotidine 10 mg tablet 10 mg PO DAILY 10/22/23 [History Last Taken Unknown] Allergy/AdvReac Type Severity Reaction Status Date / Time No Known Allergies Allergy Verified 10/23/23 03:06 Family History Brother Asthma Mother Breast cancer Skin cancer Social History Smoking Status: Current every day smoker tobacco type: e-cigarettes alcohol intake: current alcohol intake frequency: a few times a week Alcohol type: beer substance use type: does not use what type of physical activity do you participate in: other details: sports/ jui [email or web address] ROS ROS ED Constitutional Constitutional ED: Denies chills, fever(s) or sweats Eyes Eyes: Denies change in vision ENT ENT ED: Denies dysphagia or sore throat Cardiovascular Cardiovascular: Denies chest pain, leg edema, palpitations or racing heartbeat Respiratory/Chest Respiratory/Chest: Denies cough, dyspnea or dyspnea on exertion Gastrointestinal Gastrointestinal: Reports abdominal pain; Denies diarrhea, nausea or vomiting Genitourinary Genitourinary ED: Denies dysuria, hematuria or urinary frequency Musculoskeletal Musculoskeletal: Denies back pain, extremity pain or neck pain Integumentary Denies rash or wounds Neurologic Neurologic: Denies headache(s), paresthesias or weakness EXAM Physical Exam Const Vital Signs: 10/23/23 03:03 Temperature 96.5 F L Temperature Source Temporal Pulse Rate 77 Respiratory Rate 18 Blood Pressure 163/113 H Blood Pressure Mean 129 Pulse Ox 100 Oxygen Delivery Method Room Air Positive well nourished and well developed General Appearance ED: well developed and NAD HEENT Reports moist mucous membranes normocephalic and atraumatic Eyes PERRL, EOMs intact bilaterally and conjunctivae normal General Eye ED: Yes normal appearance of both eyes Neck no lymphadenopathy and supple General: Negative for tenderness Chest Wall Chest: Negative for tenderness Resp normal respiratory effort and normal air movement Effort and Inspection: symmetric chest movement; Negative for respiratory distress Cardio regular rate, regular rhythm and no murmurs Peripheral Pulses: pulses 2+ throughout GI normal to inspection, nondistended, normoactive bowel sounds GI Narrative: Right upper quadrant tenderness, no guarding or rebound. Palpation: Negative for guarding or rebound tenderness present Back/Spine no CVA tenderness and no thoracic nor lumbar tenderness Extremity normal to inspection General Extremety ED: Negative for edema or tenderness General Extremity: Negative for edema Neuro oriented x3 and no sensory deficits noted Sensorium / Orientation: awake and alert Skin no rashes or lesions noted and no wounds MDM MDM MDM Narrative Medical decision making narrative: Interventions / MDM: Differential diagnosis: Gallstones, biliary colic Diagnosis considered but do not suspect: N/A My EKG interpretation: N/A Imaging independently reviewed and interpreted by myself: N/A External documents reviewed: Outpatient consult from surgery reviewed yesterday with recommended cholecystectomy. Test considered but not ordered:N/A ED course: Patient known gallstones with similar symptoms. He ate famous bowl [facility] with gravy. Will check abdominal labs, morphine Zofran fluids started. 0410: Pain only mild improvement. He states more accurate waiting is his pain in his low mid back. This still pain in the right upper quadrant however there is no guarding or rebound. His was white normal normal lipase 83 slightly elevated however lower than his previous. Normal liver enzymes. Will redose his pain medicines along with IV Pepcid to try to help with symptoms. 0510: Symptoms much more tolerable. Soft abdomen on exam. I did discuss with his surgeon Dr. Pastrana, symptoms controlled at this time. He reiterated avoiding greasy and dairy foods. He recommended patient calling his office for outpatient scheduling for the procedure. This was discussed with the patient. He understands this. He is tolerating oral fluids prior to discharge. Return precautions discussed. All questions were answered. Re-evaluation: stable Disposition discussed with patient/family/significant other: Patient Case discussed with consulting clinician: General surgery This note was generated with [employer] dictation software. It may contain incorrectwords, spelling, and punctuation that were not noted in checking the note beforesigning. Lab Data Attestation: I reviewed the patient's lab results. Labs: Laboratory Results - last 24 hr 10/23/23 03:35 WBC 7.7 RBC 4.86 Hgb 14.8 Hct 44.5 MCV 91.6 MCH 30.5 MCHC 33.3 RDW Std Deviation 43.6 RDW Coeff of Marquez 12.9 Plt Count 304 MPV 8.7 Immature Gran % (Auto) 0.100 Neut % (Auto) 46.6 L Lymph % (Auto) 37.8 Evans % (Auto) 9.5 Eos % (Auto) 4.8 Baso % (Auto) 1.2 H Absolute Neuts (auto) 3.6 Absolute Lymphs (auto) 2.89 Nucleated RBC % 0 Sodium 140 Potassium 4.3 Chloride 106 Carbon Dioxide 29.0 Anion Gap 5 BUN 11 Creatinine 0.99 Estim Creat Clear Calc 89.73 Est GFR (MDRD) Af Amer 110 Est GFR (MDRD) Non-Af 91 BUN/Creatinine Ratio 11.2 Glucose 112 H Calcium 8.8 Total Bilirubin 0.60 Direct Bilirubin 0.18 AST 16 ALT 24 Alkaline Phosphatase 67 Total Protein 7.1 Albumin 3.9 Globulin 3.2 Lipase 83 H Discharge Plan Triage Chief Complaint: Abd Pain ED Provider: Eze Holland Dx/Rx/DC Orders Clinical Impression: Gall stones, Abdominal pain, Biliary colic Instructions: ED Gallstones with Biliary Colic Prescriptions: No Action famotidine 10 mg tablet 10 mg PO DAILY Primary Care Provider: Jeronimo Zamora Referrals: Anil Pastrana MD [Med Staff - Active Staff] - 3-5 Days Jeronimo Zamora, COPRA PROCESSOR-C [Primary Care Provider] - Activity Restrictions/Additional Instructions: Avoid greasy and fatty foods. Avoid dairy products. Discussed with Dr. Pastrana in the emergency department. Call office discussed earlier schedule of your cholecystectomy. Return to ED if symptoms return and worsens uncontrolled at home. Disposition Disposition: Home, Self Care What to do if you have Problems For any increased pain, shortness of breath, bleeding, nausea or vomiting, chestpain, or any unexpected problems, contact your Primary Care Provider. Call [facility] ([phone]) or report to the closest Emergency Room. Call 911 if necessary. 10/23/23 0518 <Electronically signed by Eze Gunn> Cosigner Signature (if applicable): CC: COPRA PROCESSOR-C Jeronimo Zamora; Dr. Anil Pastrana MD ~ Signed [facility] Work Phone: Discharge summary Author Burt Celaya [facility] December 10, 2023 5:38am Note Date/Time December 10, 2023 4 :06am [facility] Medical Records Department [address] [place] [address] Emergency Department Summary 12/10/23 MR#: [id number] Acct: [id number] Name: MANOLO GUZMAN Rep # :[id number] : 1985 38 From: Burt Celaya MD PCP: MARY ALICE Brown Status:REG ER Location: ED HPI HPI - GI History of Present Illness Chief Complaint: Abd Pain Informant: patient Narrative Narrative: Patient presents with my gallbladder again. This patient has been having intermittent right upper quadrant pain for several months. He has been seen and evaluated. He is known to have gallstones. He was going to have his gallbladder out about 4 days ago or 5 days ago. But his surgeon was ill and therefore it was delayed. He is now scheduled for 19 December. He states he ate late yesterday evening. He ate about 930 which was about 6 or 7 hours ago. He had garlic bread and cheese ravioli. He has been having pain for about 3 hours. He states he just cannot get comfortable. He isnot really nauseated with it. No fevers or chills. The pain is in right upper quadrant and radiates toward his back. That is typically what it has done. [facility] Medical History Alcohol use Diverticulosis Encounter for preventative adult health care examination GERD (gastroesophageal reflux disease) History of kidney stones Injury of groin Restless legs Right inguinal pain Wears glasses Home Medications famotidine 10 mg tablet 10 mg PO DAILY PRN GERD 10/22/23 [History Last Taken Unknown] hydrocodone-acetaminophen 5-325mg 5mg-325mg 1 tab PO Q6H PRN PRN Pain 3 days #10TABLETS 12/10/23 [Rx Last Taken Unknown] Allergy/AdvReac Type Severity Reaction Status Date / Time No Known Allergies Allergy Verified 12/10/23 04:04 Family History Brother Asthma Mother Breast cancer Skin cancer Social History Smoking Status: Current every day smoker tobacco type: e-cigarettes alcohol intake: current alcohol intake frequency: a few times a week Alcohol type: beer substance use type: does not use what type of physical activity do you participate in: other details: sports/ [facility] ROS ROS ED ROS Narrative A complete review of systems was performed and is negative except as documented in the history of present illness. Some specific details below. Constitutional: No recent fevers or chills. EYE: No color change. ENT: No difficulty swallowing. No swelling. No pain. Not having GERD but he is on meds for that. CV: No chest pain or palpitations. Respiratory: No dyspnea. No hemoptysis. No difficulty taking breaths. GI: Please see history of present illness. : No frequency dysuria or hematuria. Musculoskeletal: No recent trauma. No pains. Skin: No rash. Nondiaphoretic. Neuro: No weakness or numbness. Endocrine: No polyuria or polydipsia. EXAM Physical Exam Narrative Exam Narrative: CONSTITUTIONAL: Patient is nontoxic in appearance. The patient looks comfortable. HEENT: No notable trauma. Mucous membranes moist. EYES: No conjunctival injection. No proptosis. CARDIOVASCULAR: Regular rate. Regular rhythm. No notable murmur. No JVD. RESPIRATORY: No respiratory distress. Breathing is unlabored. No wheezes. No rhonchi. No rales. No pain with a deep breath. GASTROINTESTINAL: Not distended. Bowel sounds are normal. Mild tenderness in the right upper quadrant. No rebound or guarding. Rest of abdomen is actually benign. There are tattoos but no rash. GENITOURINARY: No tenderness over the bladder. No CVA tenderness. MUSCULOSKELETAL: Atraumatic. No peripheral edema. No cord. No tenderness along the deep venous system. No asymmetry. NEUROLOGICAL: Patient is alert and appropriate. No focal deficit noted. SKIN: No noted rashes. No diaphoresis. PSYCHIATRIC: Patient is calm. Mood is appropriate. Const Vital Signs: 12/10/23 03:54 Temperature 97.5 F L Temperature Source Temporal Pulse Rate 78 Respiratory Rate 16 Blood Pressure 145/92 H Blood Pressure Mean 109 Pulse Ox 99 MDM MDM MDM Narrative Medical decision making narrative: Patient's CBC is normal. Patient's electrolytes are overall normal. Patient's liver function test are normal. Patient's lipase is mildly high but it is about the same level that it has been recently. Patient was rechecked. He states he feels like it is finally broken and the pain is gone away. He is not nauseated. His abdomen is not tender now. I think it is appropriate we get him home. I did do online prescribing report andhe has no narcotics. I will write for just a small number so he has an option to take at home pending his surgery. We again discussed appropriateness of diet. Lab Data Attestation: I reviewed the patient's lab results. Labs: Laboratory Results - last 24 hr 12/10/23 04:00 WBC 7.3 RBC 4.77 Hgb 14.4 Hct 43.4 MCV 91.0 MCH 30.2 MCHC 33.2 RDW Std Deviation 42.1 RDW Coeff of Marquez 12.6 Plt Count 308 MPV 9.2 Immature Gran % (Auto) 0.300 Neut % (Auto) 44.7 L Lymph % (Auto) 40.5 Evans % (Auto) 10.4 H Eos % (Auto) 3.1 Baso % (Auto) 1.0 Absolute Neuts (auto) 3.3 Absolute Lymphs (auto) 2.96 Nucleated RBC % 0 Sodium 140 Potassium 4.3 Chloride 107 Carbon Dioxide 30.0 Anion Gap 3 L BUN 13 Creatinine 0.90 Estim Creat Clear Calc 98.70 Est GFR (MDRD) Af Amer 123 Est GFR (MDRD) Non-Af 101 BUN/Creatinine Ratio 14.5 Glucose 93 Calcium 9.2 Total Bilirubin 0.30 AST 26 ALT 28 Alkaline Phosphatase 72 Total Protein 7.2 Albumin 3.9 Globulin 3.3 Albumin/Globulin Ratio 1.2 Lipase 91 H Discharge Plan Triage Chief Complaint: Abd Pain ED Provider: Burt Celaya Dx/Rx/DC Orders Clinical Impression: History of gallstones, Biliary colic Instructions: ED Gallstones with Biliary Colic Prescriptions: New hydrocodone-acetaminophen [hydrocodone-acetaminophen] 5-325 mg tablet 1 tab PO Q6H PRN PRN (Reason: Pain) 3 Days Qty: 10 0RF No Action famotidine 10 mg tablet 10 mg PO DAILY PRN (Reason: GERD) Primary Care Provider: Jeronimo Zamora Referrals: Anil Pastrana MD [Med Staff - Active Staff] - Keep Paulina appointment Jeronimo Zamora, COPRA PROCESSOR-C [Primary Care Provider] - Disposition Disposition: Home, Self Care What to do if you have Problems For any increased pain, shortness of breath, bleeding, nausea or vomiting, chestpain, or any unexpected problems, contact your Primary Care Provider. Call [facility] ([phone]) or report to the closest Emergency Room. Call 911 if necessary. 12/10/23 0537 <Electronically signed by Burt Celaya MD> Cosigner Signature (if applicable): CC: MARY ALICE Zamora ~ Signed ADDENDUM by Dr. Burt Celaya MD on 12/10/23 at 0538 EKG Done by protocol shows in my own interpretation a normal sinus rhythm with overall rate of 77. No ventricular ectopy. No acute ST elevation or depression. AK interval, QRS duration and QTc are all normal. 12/10/23 0538<Electronically signed by Burt Celaya MD> Cosigner Signature (if applicable): cc: MARY ALICE Zamora ~* Signed [facility] Work Phone: Evaluation note* Diagnosis STD exposure- [facility] Diagnosis Onset Date Resolution Status GERD (gastroesophageal reflux disease) acute [facility] Work Phone: Evaluation noteNo assessment information available [facility] Work Phone: Evaluation note* Diagnosis Onset Date Resolution Status Gall stones acute [facility] Work Phone: Hospital Discharge instructions Additional Instructions Avoid greasy and fatty foods. Avoid dairy products. Discussed with Dr. Pastrana in the emergency department. Call office discussed earlier schedule of your cholecystectomy. Return to ED if symptoms return and worsens uncontrolled at home.[facility] Work Phone: Summary Purpose Family History No Family History Records Found Relationship Condition Age at Onset Recorded Date/T amanda brother Asthma Unknown mother Malignant neoplasm of breast Unknown Malignant neoplasm of skin Unknown Advance Directives No Advanced Directives Records Found Advance Directive Response Recorded Date/ Time Living Will No January 19, 2021 9:12pm Power of Environmental Professional No January 19 9:12pm Advance Directive Response Recorded Date/ Time Living Will No September 17 1:09am Power of Environmental Professional No September 17, 2023 1:09am Advance Directive Response Recorded Date/ Time Living Will No September 17 12:09am Power of Environmental Professional No September 17, 2023 12:09am Advance Directive Response Recorded Date/ Time Living Will No October 23 3:05am Power of Environmental Professional No October 23, 2023 3:05am Advance Directive Response Recorded Date/ Time Living Will No December 10 3:56am Power of Environmental Professional No December 10, 2023 3:56am Chief Complaint and Reason for Visit Chief Complaint HEARTBURN LIVER DISEASE Reason for Visit GERD (gastroesophage al reflux disease) Chief Complaint HEARTBURN LIVER DISEASE abdominal pain Reason for Visit GERD (gastroesophage al reflux disease) Chief Complaint LIVER DISEASE abdominal pain Generalized abdominal pain Chief Complaint LIVER DISEASE abdominal pain Generalized abdominal pain LIVER DISEASE Chief Complaint LIVER DISEASE abdominal pain Generalized abdominal pain LIVER DISEASE Gall Stones abd pain Reason for Visit Gall stones Chief Complaint LIVER DISEASE abdominal pain Generalized abdominal pain LIVER DISEASE Gall Stones abd pain abd pain Reason for Visit Gall stones Chief Complaint LIVER DISEASE abdominal pain Generalized abdominal pain LIVER DISEASE Gall Stones abd pain abd pain Laparoscopic, Cholecystectomy with Laparoscopic, Cholecystectomy with Reason for Visit Gall stones Additional Source Comments Source Comments (unrecognize d section and content) In the event this informatio n is protected by the Federal Confidentiality of Alcohol and Drug Abuse Patient Records regulations: The Federal rules restrict any use of the information to criminally investigate or prosecute any alcohol or drug abuse patient.[facility] the event this information is protected by the Federal Confidentiality of Alcohol and Drug Abuse Patient Records regulations: The Federal rules restrict any use of the information to criminally investigate or prosecute any alcohol or drug abuse patient.[facility] the event this information is protected by the Federal Confidentiality of Alcohol and Drug Abuse Patient Records regulations: The Federal rules restrict any use of the information to criminally investigate or prosecute any alcohol or drug abuse patient.[facility] Reason for Visit (unrecogniz ed section and content) Reason Comments STD Testing Reason Comments Results Care Teams (unrecognized sec tion and content) Forecast Analyst Relationship Specialty Start Date End Date Arturo Hodge PCP - General 03/08/05 Forecast Analyst Relationship Specialty Start Date End Date Arturo Hodge PCP - General 03/08/05 Team Status: Active Member Role Status Dates No Primary Care Physician Family Provider Active Jeronimo Zamora COPRA PROCESSOR, COPRA PROCESSOR-C Primary Care Provider Active Team Status: Inactive Member Role Status Dates Jeronimo Zamora COPRA PROCESSOR, COPRA PROCESSOR-C Primary Care Provider, Referring P deana Active Lambert Baez PA, PA Attending Provider Active Team Status: Inactive Member Role Status Dates Jeronimo Zamora COPRA PROCESSOR, COPRA PROCESSOR-C Primary Care Provide r, Attending Provider, Referring Provider Active Team Status: Inactive Member Role Status Dates Jeronimo Zamora COPRA PROCESSOR, COPRA PROCESSOR-C Primary Care Provider Active Dr. Polo Han MD Emergency Provider Active Team Status: Active Member Role Status Dates No Primary Care Physician Family Provider Active Jeronimo Zamora VSC, COPRA PROCESSOR-C Primary Care Provider Active Team Status: Inactive Member Role Status Dates Jeronimo Zamora COPRA PROCESSOR, COPRA PROCESSOR-C Primary Care Provider Active Dr. Polo Han MD Attending Provider, Emergency Pr ovider Active Team Status: Inactive Member Role Status Dates Jeronimo Zamora VSC, COPRA PROCESSOR-C Primary Care Provid er, Attending Provider, Referring Provider Active Team Status: Inactive Member Role Status Dates Jeronimo Zamora VSC, COPRA PROCESSOR-C Primary Care Provider, Referring Provider Active Dr. Anil Pastrana MD Attending Provider Active Team Status: Inactive Member Role Status Dates Jeronimo Zamora VSC, COPRA PROCESSOR-C Primary Care Provider Active Dr. Eze Holland DO Emergency Provider Active Team Status: Inactive Member Role Status Dates Jeronimo Zamora VSC, COPRA PROCESSOR-C Primary Care Provider Active Dr. Eze Holland DO Attending Provider, Emergency Provide r Active Team Status: Inactive Member Role Status Dates Jeronimo Zamora VSC, COPRA PROCESSOR-C Primary Care Provider Active Dr. Burt Celaya MD Emergency Provider Active Team Status: Active Member Role Status Dates Jeronimo Zamora VSC, COPRA PROCESSOR-C Primary Care Provider Active Dr. Anil Pastrana MD Attending Pr ovider, Referring Provider, Other Provider Active Team Status: Inactive Member Role Status Dates Jeronimo Zamora VSC, COPRA PROCESSOR-C Primary Care Provider Active Dr. Anil Pastrana MD Attending Provider, Referr ing Provider Active Team Status: Inactive Member Role Status Dates Jeronimo Zamora VSC, COPRA PROCESSOR-C Primary Care Provider Active Dr. Burt Celaya MD Attending Provider, Emergency Provider Active Forecast Analyst Relationship Specialty Start Date End Date Jeronimo Zamora CNP [address] [place] [address] PCP - General Family Medicine 06/13/24 (unrecognized sect ion and content) No Status Records FoundNo Status Records FoundNo Status Records Found INFORMATION SOURCE (unrecogn ized section and content) DATE CREATED AUTHOR 09/01/2023 [facility] DATE CREATED AUTHOR AUTHOR'S ORGANIZ ATION 06/25/2024 [facility] DATE CREATED AUTHOR AUTHOR'S ORGANIZ ATION 08/26/2024 [facility] Goals (unrecognized section and content) Goals may be documented in a n alternate sectionGoals may be documented in an alternate sectionGoals may be documented in an alternate sectionGoals may be documented in an alternate sectionGoals may be documented in an alternate sectionGoals may be documented in an alternate section FOR RECORDS PERTAINING TO PATIENTS WHO ARE [...] BE BASED ON THE PRIMARY CLINICAL RECORDS. [facility]. provides no warranty or guarantee of the accuracy or completeness of information in this document.
[2025-06-04] VITALS: BP 146/97; PULSE 100; RESP 15; TEMP 36.8; O2SAT 100
[2025-06-04] MEDS: DiphenhydrAMINE 50 MG/ML Syringe 25 MG IV (00:07)
--- NOTE | 2025-06-04 00:38 | EDS_ITS ---
HPI History of Present Illness Chief Complaint: Flank Pain Informant: patient and spouse/S.O. Narrative Narrative: Patient is a 40-year-old male with past medical history of GERD and remote history of kidney stone. He states that roughly 30 minutes prior to arrival while he was sitting down relaxing he developed sudden onset sharp pain in the right flank wrapping towards his right groin. He states there is no improvement with position change. He does state he fell because urine was dark or bloody over the last few days. He denies any fevers or chills. He denies any recent trauma. He states that he is nauseous secondary to the pain but denies any sick symptoms prior to his symptoms beginning. He states this feels similar nature to his past history of kidney stone with concern for this comes in for evaluation [facility] Medical History Wears glasses Alcohol use Restless legs Diverticulosis GERD (gastroesophageal reflux disease) Encounter for preventative adult health care examination Injury of groin Right inguinal pain History of kidney stones Home Medications ?Medication ?Instructions ?Recorded ?Last Taken ?Type dextroamphetamine-amphetamine ER 1 cap PO QAM 08/25/24 Unknown History 15 mg 24hr capsule,extend release cephalexin 500 mg capsule 500 mg PO BID 7 days #14 cap s 06/04/25 Unknown Rx ketorolac 10 mg tablet 10 mg PO 4X/DAY PRN pain 5 d ays 06/04/25 Unknown Rx #20 tabs ondansetron 4 mg disintegrating 4 mg PO TID PRN nausea and 06/04/25 Unknown Rx tablet vomiting #21 tabs oxycodone-acetaminophen 5 mg-325 1 tab PO Q6H PRN pain 5 days #20 06/04/25 Unknown Rx mg tablet (Percocet) tabs tamsulosin 0.4 mg capsule (Flomax) 0.4 mg PO DAILY 14 days #14 caps 06/04/25 Unknown Rx Allergy/AdvReac Type Severity Reaction Status Date / Time No Known Allergies Allergy Verified 06/03/25 22:29 Family History Brother Asthma Mother Breast cancer Skin cancer Surgical History S/P laparoscopic cholecystectomy Social History Smoking Status: Current every day smoker tobacco type: e-cigarettes alcohol intake: current alcohol intake frequency: a few times a week Alcohol type: beer substance use type: does not use what type of physical activity do you participate in: other details: sports/ jujose crow ROS ROS ED Constitutional Constitutional ED: Denies chills or fever(s) Cardiovascular Cardiovascular: Denies chest pain Respiratory/Chest Respiratory/Chest: Denies cough or dyspnea Gastrointestinal Gastrointestinal: Reports abdominal pain and nausea; Denies diarrhea or vomiting Genitourinary Genitourinary ED: Reports hematuria; Denies dysuria Musculoskeletal Musculoskeletal: Reports back pain Integumentary Denies rash Neurologic Neurologic: Denies headache(s) Hematologic/Lymphatic Hematologic/Lymphatic: Denies easy bleeding or easy bruising EXAM Physical Exam Const Vital Signs: 06/03/25 22:28 06/03/25 22:31 06/03/25 23:31 Temperature 98.4 F 98.4 F 98.2 F Temperature Source Temporal Oral Oral Pulse Rate 98 98 96 Respiratory Rate 18 18 14 Blood Pressure 145/100 H 145/100 H 133/99 H Blood Pressure Mean 115 115 110 Pulse Ox 98 98 100 Oxygen Delivery Method Room Air Room Air Room Air 06/04/25 00:00 06/04/25 00:58 Temperature 98.2 F 98.2 F Temperature Source Oral Pulse Rate 100 95 Respiratory Rate 15 15 Blood Pressure 146/97 H 132/89 H Blood Pressure Mean 113 103 Pulse Ox 100 99 Oxygen Delivery Method Room Air Positive well nourished and well developed General Appearance ED: well developed; Negative for pallor HEENT Reports moist mucous membranes HEENT Narrative: Normocephalic atraumatic Eyes PERRL and EOMs intact bilaterally General Eye ED: Negative for scleral icterus Neck supple Resp normal respiratory effort and clear to auscultation bilaterally Cardio regular rate and regular rhythm Rate: other Other Details: Radial and carotid pulses are equal and symmetric GI non-distended and no masses GI Narrative: Soft and nondistended with normal active bowel sounds. There is pain on palpation along the right lateral abdomen diffusely without voluntary guarding or rigidity No pulsatile mass or fluid wave No peritoneal signs Auscultation: normoactive bowel sounds Palpation: soft Back/Spine Back/Spine Narrative: Positive right CVA pain noted Extremity normal to inspection Neuro oriented x3, CN's II-XII intact bilaterally and no sensory deficits noted Sensorium / Orientation: alert Motor Exam: strength 5/5 throughout Psych mental status grossly normal Skin no rashes or lesions noted and no wounds General Skin Exam: Negative for jaundice or pallor MDM MDM MDM Narrative Medical decision making narrative: Patient arrived to the ER hypertensive but is in pain and otherwise has stable vitals. With sudden onset of flank pain wrapping towards the groin there is high likelihood the patient has a kidney stone. In order to rule out stone versus UTI versus pyelonephritis versus acute kidney injury basic labs and a noncontrast CT were obtained. Patient's creatinine is normal his urine sample does not show any sign of bacteria going against a secondary infection. CT scan reveals a 6 mm stone near the UPJ with mild hydronephrosis. Despite the obstruction there is no sign of ALMA. After receiving Toradol morphine and Zofran the patient reported near resolution of his pain. Therefore with improved symptom control no signs of acute kidney injury or urosepsis there is no need for admission or emergent urology consultation. Patient will be discharged home with symptomatic care and can follow-up with urology to discuss stent placement if he cannot pass the stone on his own History & Record Review Discussion w/independent historian: Patient and Significant other Lab Data Attestation: I reviewed the patient's lab results. Labs: Laboratory Results - last 24 hr 06/03/25 06/04/25 22:37 00:45 WBC 9.6 RBC 4.87 Hgb 14.8 Hct 41.3 MCV 84.8 MCH 30.4 MCHC 35.8 RDW Std Deviation 38.1 RDW Coeff of Marquez 12.5 Plt Count 313 MPV 9.2 Immature Gran % (Auto) 0.200 Neut % (Auto) 52.5 Lymph % (Auto) 34.8 [place] % (Auto) 9.9 Eos % (Auto) 2.0 Baso % (Auto) 0.6 Absolute Neuts (auto) 5.0 Absolute Lymphs (auto) 3.33 Nucleated RBC % 0 Sodium 140 Potassium 3.6 Chloride 102 Carbon Dioxide 24.3 Anion Gap 13 BUN 8 Creatinine 1.05 Estim Creat Clear Calc 82.98 Est GFR (MDRD) Non-Af 93 BUN/Creatinine Ratio 8.0 L Glucose 91 Calcium 10.0 Urine Color Sofya Urine Clarity Sl. Cloudy Urine pH 6.5 Ur Specific Mer[place]old 1.015 Urine Protein 100 H Urine Glucose (UA) Normal Urine Ketones Negative Urine Occult Blood 250 H Urine Nitrite Negative Urine Bilirubin Negative Urine Urobilinogen Normal Ur Leukocyte Esterase 100 H Urine RBC > 100 SEEN Urine WBC 5-10 SEEN Ur Squamous Epith Cells 0 SEEN Calcium Oxalate Crystal 2+ Urine Bacteria 0 SEEN Urine Mucus 2+ Radiography Diagnostic Testing: Clinical Impression(s) from Imaging Studies Abdomen/Pelvis CT 06/03/25 22:46 IMPRESSION: 1. Obstructive 6 mm stone in the proximal right ureter at the ureteropelvic junction, with associated mild right hydronephrosis and perinephric edema. 2. Several additional bilateral small nonobstructive renal stones. Reading Location: [facility] Discharge Plan Triage Chief Complaint: Flank Pain ED Provider: Ronald Christie Dx/Rx/DC Orders Clinical Impression: Kidney stone on right side, Renal colic, GERD (gastroesophageal reflux disease) Instructions: Understanding Hydronephrosis, ED Kidney Stone with Pain Prescriptions: New oxycodone-acetaminophen [Percocet] 5-325 mg tablet 1 tab PO Q6H PRN (Reason: pain) 5 Days Qty: 20 0RF ketorolac 10 mg tablet 10 mg PO 4X/DAY PRN (Reason: pain) 5 Days Qty: 20 0RF tamsulosin [Flomax] 0.4 mg capsule 0.4 mg PO DAILY 14 Days Qty: 14 0RF ondansetron 4 mg tablet,disintegrating 4 mg PO TID PRN (Reason: nausea and vomiting) Qty: 21 0RF cephalexin 500 mg capsule 500 mg PO BID 7 Days Qty: 14 0RF No Action dextroamphetamine-amphetamine 15 mg capsule,extended release 24hr 1 cap PO QAM Primary Care Provider: Jeronimo Zamora Referrals: Cristobal Walls MD [Med Staff - Active Staff] - (6 mm kidney stone) Jeronimo Zamora, UTILITIES SERVICE INVESTIGATOR-C [Primary Care Provider] - Activity Restrictions/Additional Instructions: Please keep yourself well-hydrated and stay active to help pass the stone. Take the prescribed medication as directed to help control symptoms. If you develop a fever of 100.4 or higher or your pain is not controlled with the prescribed medications then please return to the ER for repeat evaluation Print Language: Telugu Disposition Disposition: Home, Self Care Discharge Date/Time: 06/04/25 01:00
[2025-06-04 00:50] LABS: Squamous Epithelial Cells - UA 0 SEEN /hpf (0-5)
[2025-06-04 00:56] LABS: Color, Urine Amber (Yellow); Glucose, Dipstick Normal (Normal); Ketone-Dipstick Negative (Negative); Leukocyte Esterase-Dipstick 100 /ul (Negative); Nitrite-Dipstick Negative (Negative); Occult Blood-Urine 250 /ul (Negative); Protein-Dipstick 100 mg/dl (Negative); Specific Gravity, Urine 1.015 (1.002-1.030); Urine Bilirubin Dipstick Negative (Negative)
[2025-06-04 00:58] VITALS: BP 132/89; PULSE 95; RESP 15; TEMP 36.8; O2SAT 99
[2025-06-04 01:21] LABS: Calcium Oxalate Crystals Ur 2+ /hpf (<or=2+); Red Blood Cells-Urine > 100 SEEN /hpf (0-5)
[2025-06-04 01:24] LABS: Mucous, Urine 2+ /hpf (<or=2+)
== END 2025-06-04 01:00 | disposition home or self-care (01) ==
PROVIDERS: Emergency Provider Emergency Medicine; PCP Nurse Practitioner Family; Visit Provider Emergency Medicine
DX: N13.2 Hydronephrosis with renal and ureteral calculous obstruction (principal); K21.9 Gastro-esophageal reflux disease without esophagitis; R31.9 Hematuria, unspecified; E53.9 Vitamin B deficiency, unspecified; F17.290 Nicotine dependence, other tobacco product, uncomplicated; Z79.899 Other long term (current) drug therapy; Z90.49 Acquired absence of other specified parts of digestive tract
CPT/HCPCS: 36415; 74176; 80048; 80053; 80061; 81001; 81002; 82306; 82607; 84443; 85025; 96361; 96374; 96375; 99283; A4216; J2405

== ENCOUNTER → 2025-06-03 | Outpatient (CLI) | payer MEDICAID, SELFPAY ==
[2025-06-03 16:33] LABS: Hematocrit 45.5 % (40-54); Hemoglobin 15.7 g/dL (13.0-16.5); Immature Granulocytes Count 0.010 X10^3/uL (0.0-0.0); Mean Corp Hgb Conc 34.5 g/dL (32-36); Mean Corpuscular Volume 88.5 fL (80-94); Mean Platelet Vol. 9.9 fl (6.2-12.0); NRBC Flagged by Analyzer 0 % (0-5); Platelet Count 249 K/mm3 (150-450); RBC Distribution Width CV 12.4 % (11.6-14.6); RBC Distribution Width SD 40.8 fl (35.1-43.9); Red Blood Count 5.14 M/mm3 (4.6-6.2); White Blood Count 6.0 K/mm3 (4.4-11.0)
[2025-06-03 17:19] LABS: AST(SGOT) 18 U/L (<=37); Alanine Aminotransfer ALT/SGPT 17 U/L (<=46); Albumin, Serum 4.7 g/dL (3.5-5.0); Alkaline Phosphatase 103 U/L (40-129); Anion Gap 12 (5-15); BUN 7 mg/dL (4-19); BUN/Creat Ratio 7.5 RATIO (10-20); Calcium,Total 9.8 mg/dL (7.6-11.0); Carbon Dioxide 24.6 mmol/L (21.0-32.0); Chloride 103 mmol/L (98-108); Cholesterol 176 mg/dL (<=200); Globulin 3.0 g/dL (2.2-4.2); Glucose 92 mg/dL (70-99); Low Density Lipoprotein Calc. 102 mg/dL; Potassium 3.9 mmol/L (3.3-5.1); Triglycerides 83 mg/dL; Very Low Density Lipoprotein 17 mg/dL (5-40); Vitamin B12 534 pg/mL (180-914); Vitamin D,25 Hydroxy 30.6 ng/mL (30-100); cholesterol:hdl ratio screen 3.04
[2025-06-03 18:43] LABS: Color, Urine Brown (Yellow); Glucose, Dipstick Normal (Normal); Ketone-Dipstick Negative (Negative); Leukocyte Esterase-Dipstick 100 /ul (Negative); Nitrite-Dipstick Negative (Negative); Occult Blood-Urine 250 /ul (Negative); Protein-Dipstick 100 mg/dl (Negative); Specific Gravity, Urine 1.025 (1.002-1.030); Urine Bilirubin Dipstick Negative (Negative)
== END | disposition home or self-care (01) ==
LOC: VSLAB 11:57
PROVIDERS: PCP Nurse Practitioner Family; Visit Provider Nurse Practitioner Family
DX: Z00.00 Encounter for general adult medical examination without abnormal findings (principal); E53.9 Vitamin B deficiency, unspecified
CPT/HCPCS: 36415; 80053; 80061; 81002; 82306; 82607; 84443; 85025

== ENCOUNTER → 2025-09-03 | Outpatient (CLI) | payer MEDICAID, SELFPAY ==
--- NOTE | 2025-09-03 11:07 | RAD_ITS ---
PROCEDURE: WRIST MIN 3 VIEWS 09/03/2025 REASON FOR EXAM: WRIST PAIN TECHNIQUE: Procedure Code: RADWR Modality: DX Procedure: WRIST MIN 3 VIEWS Laterality: Left wrist COMPARISON: None FINDINGS: Bones: No visible fracture. No suspicious bone lesion. Joints: Normal alignment. Soft tissues: Soft tissues are unremarkable. Other: RAD/Wrist min 3 Views IMPRESSION: NEGATIVE WRIST Reading Location: [place] [address]
== END | disposition home or self-care (01) ==
LOC: MTRAD 11:06
PROVIDERS: PCP Nurse Practitioner Family; Referring Provider Physician Assistant Surgical; Visit Provider Physician Assistant Surgical
DX: M25.532 Pain in left wrist (principal)
CPT/HCPCS: 73110

== ENCOUNTER 2025-10-13 09:30 | Outpatient (RCR) | payer MEDICAID, SELFPAY ==
--- NOTE | 2025-09-10 11:16 | HP.OTEVAL_ITS ---
Patient's Visit Information Visit Information Visit Information: MANOLO GUZMAN is a 40 year old M, referred to Occupational Therapy by SABINA Blair, with a diagnosis of left wrist pain. Date of Evaluation: 09/10/25 Occupational Therapist: CHERIE Bynum/Melinda, CHT Subjective Subjective: This 40 year old male was seen for OT eval with dx of left wrist pain. pt state he has had a increase in left wrist pain with activity- some mo vements. pt states pain is radiating out more than typical. pt states more frequent pain over last 5 months. pt states he does have tingling in bilateral hands but mostly in LF and RF. 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 Pain left wrist: Current Pain Intensity: 0 Pain Intensity Range: 6 ROM Forearm: right/left wnl Wrist: right 60/70 left 65/55 ROM Comments: right RD 20* UD 30* left RD 15 UD 15 pt reports pain with resistive supination pt painful with Ulna palpation Strength Flight Communications Specialist: right 90# left 75# Lateral Pinch: right 16# left 16# Tripod Pinch: right 14# left 16# Sensation Thumb: right 2.83 left 2.83 interpretation Normal sensation Index: right 2.83 left 2.83 interpretation Normal sensation Middle: right 2.83 left 2.83 interpretation Normal sensation Ring: right 2.83 left 2.83 interpretation Normal sensation Little: right 2.83 left 2.83 interpretation Normal sensation Quick DASH-Disab of Arm,Shoulder& Hand Quick DASH Score: 28.3325 Goals Goal:: Pt will demo understanding of joint protection and ergonomics when performing BADLs and IADLs by d/c Pt will demo understanding of adaptive Equipment use to decrease stress on jett ints to allow pt to perform BADSL and IADLS at DEO level. Goal:: Pt will demo understanding of using supportive bracing 80% of workday/ADLS to decrease stress on tendon origin to allow healing and decrease pain by end of 2nd session. Goal:ROM equal to unaffected hand: Yes Goal:Flight Communications Specialist/Pinch strength at least 75% of unaffected hand: Yes Goal:No pain with affected hand use: Yes Goal:Full use of affected hand in daily activities including work: Yes Rehabilitation General Assessment: pt demo with painful left wrist with resistive testing with supination and palpation around TFCC region- this is limiting pt with daily use. pt would benefit from skilled OT services 1-2x week for 3-4 weeks to ed. pt on work erg. joint protection. wrist stabilization ex. and positional brace/ support. Today therapist ed. pt on use of brace/ and or k-tape to decrease left wrist pain. Pt demo understanding and agree to POC. Rehabilitation Potential: Good Anticipated Interventions Anticipated Interventions: A/AAROM/PROM, Strengthening, Triggerpoint Release, Modalities, Orthoses, Joint Protection/Energy Conservation, Ergonomic Education, Education re assistive Equipment, Education re Diagnosis and Home Program Visit Plan Frequency: 1-2x /Week Duration: 3-4 weeks General Plan: median and ulnar nerve glides wrist stabilization use of k-tape brace TEXT: Thank you for the opportunity to evaluate your patient. For Medicare and Medicare HMO plans, please review the plan of care and approve it. It will need to be FAXED BACK to us at [phone] for Medicare purposes. Please let me know if there are questions or concerns regarding this plan of care. Physician Signature: Date:
--- NOTE | 2025-10-13 10:03 | HP.OTDCSUM ---
Discharge Summary D/C Summary: It has been my pleasure to treat MANOLO GUZMAN under orders from SABINA Blair, for the diagnosis of left wrist pain for a total of 4 visit(s). Please see the following information for a summary of their discharge status. Overall Improvement % Improvement: 30 Objective Objective/Function: pt continues to have pain at TFCC region with daily task- pt does feel improvement with pain- pt will have MRI in Dec. and states he will decide what he will do based on the results. Goals Patient Goals: Decrease Pain, Use Hand/Wrist/Arm Normally Again, Be More Independent in ADLS and Resume Former Household Responsibilities (Cooking,Cleaning,Yard, etc.) Goal:: Pt will demo understanding of joint protection and ergonomics when performing BADLs and IADLs by d/c Pt will demo understanding of adaptive Equipment use to decrease stress on joints to allow pt to perform BADSL and IADLS at DEO level. Goal:: Pt will demo understanding of using supportive bracing 80% of workday/ADLS to decrease stress on tendon origin to allow healing and decrease pain by end of 2nd session. Goal:ROM equal to unaffected hand: Yes Goal:Utility Service Worker/Pinch strength at least 75% of unaffected hand: Yes Goal:No pain with affected hand use: Yes Goal:Full use of affected hand in daily activities including work: Yes Plan Plan: Continue POC: 1-2x week (3-4 weeks) D/C Information Discharge Comments: pt will cont. with his HEP and will have his MRI in Dec. pt will cont with wrist ergo- and wrist stabilization ex. to cont. to decrease his pain with work tasks. pt agrees with d/c d/c sentence: If there are questions or concerns regarding this patient's occupational therapy, please fell free to call me at [phone]. Thank you for the referral of this patient. Sincerely, Keyla Valente, OTR/L, CHT
== END 2025-10-13 12:33 | disposition home or self-care (01) ==
LOC: OT 09:30
PROVIDERS: PCP Nurse Practitioner Family; Referring Provider Physician Assistant Surgical; Visit Provider Physician Assistant Surgical
DX: M19.032 Primary osteoarthritis, left wrist (principal); M25.532 Pain in left wrist
CPT/HCPCS: 97035; 97110; 97166; 97530

== ENCOUNTER → 2025-11-04 | Outpatient (CLI) | payer MEDICAID, SELFPAY ==
--- NOTE | 2025-11-04 14:46 | NEURO ---
NCS and/or EMG Patient Report Ordering Doctor: Arabella Carreno DATE OF SERVICE: 11/04/25 Victorino presents with complaints of bilateral wrist pain and numbness, worse on the left side. Electrodiagnostic findings: Median motor nerve demonstrates normal distal latency, amplitude and conduction velocity bilaterally. Ulnar motor response within normal limits bilaterally. Normal median ulnar F?waves. Sensory responses are normal. Needle EMG testing was performed upper limbs. All muscles tested showed no evidence of denervation with normal motor unit action potentials. Electrodiagnostic impression: This is a normal electrodiagnostic study of the upper limbs. There is no electrodiagnostic evidence for peripheral neuropathy, including carpal tunnel or cubital tunnel syndrome. There is no electrodiagnostic evidence for cervical radiculopathy. Multi Select Codes Neurology Neurology Interp Codes: 15443-51 Musc test done w/n test comp (interp) (2) and 25503-13 Nrv cndj test 13/> studies (interp)
== END | disposition home or self-care (01) ==
LOC: PSN 13:51
PROVIDERS: PCP Nurse Practitioner Family; Referring Provider Nurse Practitioner Family; Visit Provider Nurse Practitioner Family
DX: M25.531 Pain in right wrist (principal); M25.532 Pain in left wrist; R20.0 Anesthesia of skin
CPT/HCPCS: 95886; 95913